=== PATIENT | female | born 2000 | race Caucasian/White ===

== ENCOUNTER 2025-01-01 08:45 | Outpatient (REF) | payer OTHER, SELFPAY ==
[2025-01-01 11:31] LABS: MANUAL DIFF FLAG NO
[2025-01-01 11:40] LABS: Hematocrit 40.5 % (37.0-47.0); Hemoglobin 13.4 g/dl (12.0-16.0); Imm Gran Abs Auto 0.01 X10*3/uL (0.00-0.03); Imm Gran Pct Auto 0.1 % (0.0-0.4); Lymphocytes Absolute Auto 1.7 X10*3/uL (1.2-4.9); Mean Corpuscular HGB Conc 33.1 g/dl (31.0-35.0); Mean Corpuscular Hemoglobin 28.8 pg (27.0-33.0); Mean Corpuscular Volume 86.9 fL (80.0-98.0); NRBC Abs Auto 0.000 X10*3/uL (0.0-0.012); NRBC Pct Auto 0.0 /100WBC (0.0-0.2); Platelet Count 216 X10*3/uL (160-400); Red Blood Count 4.66 X10*6/uL (4.20-5.50); White Blood Count 7.1 X10*3/uL (4.8-10.8)
[2025-01-01 11:44] LABS: Appearance Urine Clear; Glucose Urine UA Negative (Negative); PH 7.0 (5.0-9.0); Specific Gravity - Urine 1.010 (1.005-1.025); UMIC TRIGGER UACC YES
[2025-01-01 11:59] LABS: UACC Culture Trigger YES
[2025-01-01 12:07] LABS: Hemoglobin A1C 114.6135 umol/L; Total Hemoglobin (HGBA1C) 3546.4933 umol/L
[2025-01-01 12:11] LABS: Alanine Aminotransferase 19 U/L (0-31); Albumin Level 4.7 g/dL (3.5-5.0); Alkaline Phosphatase 58 U/L (39-117); Anion Gap 11 (12-20); Aspartate Amino Transferase 39 U/L (5-31); Blood Urea Nitrogen 18 mg/dL (9-16); Calcium 9.0 mg/dL (8.4-10.2); Carbon Dioxide 25 mmol/L (22-29); Chloride 106 mmol/L (96-108); Cholesterol 109 mg/dL (<200); Estimated Glomerular Filt Rate > 60; Ferritin 50 ng/mL (10-122); HDL Cholesterol 57 mg/dL (>40); Iron 234 mcg/dL (30-160); Magnesium 2.0 mg/dL (1.6-2.6); Percent Iron Saturation 88 % (15-50); Potassium 4.3 mmol/L (3.3-5.1); Sodium 138 mmol/L (135-145); Total Iron Binding Capacity 266 mcg/dL (228-428); Total Protein 7.2 g/dL (6.5-8.0); Triglycerides 58 mg/dL (<150); Unsaturated Iron Binding 32 ug/dL
[2025-01-01 12:26] LABS: Folate 13.8 ng/mL (> or = 4.0); Vitamin B12 782 pg/mL (200-900)
[2025-01-02 09:44] LABS: Immunoglobulin A 136 mg/dL (47-310)
[2025-01-02 11:59] LABS: Lyme Abs Screen <0.90 index
[2025-01-02 22:53] LABS: Transglutaminase Ab IgG <1.0 U/mL
[2025-01-03 13:59] LABS: Anti Nuclear Antibody Screen NEGATIVE (NEGATIVE)
== END 2025-01-01 08:46 | disposition home or self-care (01) ==
LOC: HO.WFDLDS 08:45
PROVIDERS: PCP Physician Assistant; Visit Provider Physician Assistant
DX: Z00.00 Encounter for general adult medical examination without abnormal findings (principal); Z13.6 Encounter for screening for cardiovascular disorders; M25.50 Pain in unspecified joint; M79.641 Pain in right hand; M79.642 Pain in left hand; R53.83 Other fatigue; R59.0 Localized enlarged lymph nodes; R14.0 Abdominal distension (gaseous); N92.6 Irregular menstruation, unspecified; N89.8 Other specified noninflammatory disorders of vagina; R73.01 Impaired fasting glucose
CPT/HCPCS: 36415; 80053; 80061; 81001; 82533; 82607; 82728; 82746; 82784; 83036; 83540; 83735; 84443; 85025; 85652; 86038; 86231; 86364; 86431; 86617; 86618; 87086; 96127

== ENCOUNTER 2025-01-01 08:45 | Outpatient (AMB) | payer OTHER, SELFPAY ==
--- NOTE | 2025-01-01 09:03 | MHC.PC.OV ---
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 Required: No Is last menstrual period known: Yes Last menstrual period: 12/06/24 Post menopausal: No Patient : No Allergies No Known Allergies Allergy (Verified 01/01/25 09:11) Medication List - Last Reconciled 01/01/25 by Nancy Osborn PA-C albuterol sulfate 90 mcg/actuation 2 puffs inhalation Q4H PRN azelastine 2 sprays intranasal BID fluticasone propionate 50 mcg/actuation 1 spray intranasal DAILY montelukast 10 mg PO DAILY Tobacco use date assessed: 01/01/25 Dental Screening Dental Screen Date: 01/01/25 Did you have a dental visit in the last 12 months?: Yes Did you have a dental problem in the last 6 months where you did not have access to dental care?: No Was dental information given to patient?: Patient has dentist 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 She is transferring from [facility]. She does have a list of concerns today. States that her only significant past medical history has been environmental allergies, chronic sinusitis and nasal polyps. -she did bring in a typed list today and some specific labs that she wanted ordered HEENT: She has a history of chronic sinusitis and nasal polyps. Currently following with ENT and they want to start her on allergy shots. She says that she has to call to schedule this. She states in the past she has had allergy testing and was allergic to ?everything ?. She is currently on azelastine, Flonase, Singulair. States that this is somewhat helped with the congestion but she does have chronic postnasal drip and some lymphadenopathy mostly on the left side. She states that she is concerned because she has had 2 areas where she has noticed her lymph node enlargement in her father has a history of lymphoma and from this in 2020. Of note she is also following with Ophthalmology as she has had a couple episodes of eye ulcers. She does wear contacts. 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 She states that she never had pain with ovulation until April 2024. She states that she gets pain with ovulation and then also has intense pain with her periods. She states that she gets a lot of cramping, bloating and swelling. She says it feels like her ovaries at times want to ?explode?. She states sometimes with sex she notices pain and states it feels like it is related to her ovary. This has never happened to her before but this has been worsening since May. She states her period also is becoming a little bit irregular. In June she missed her menses. She denies any abnormal vaginal discharge, fevers or chills. She does notice that internally she has a lump in her vagina and it is uncomfortable and she has to sometimes push it out of the way. She says that that is why she has a plate maker zinc exam on the . The lump has been there also since May. It has been unchanged in size. Msk: bilateral wrist pain, elbow pain, and hand pain. Her fingers are also sore and achy. She states the joints feel achy. Her sx started in May. No erythema. No sick sx when it started. 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 Her biggest concern is the hand/fingers. General: She does feel tired a lot and wonders if she has sleep apnea. She states her boyfriend tells her he has witnessed her stopped breathing a couple times in gas for air. She also mouth breathes (per bf) and is very tired during the day. Denies fever, chills, weight loss, night sweats, nausea, vomiting or diarrhea. She also requires a full physical today for work. 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 1. Little interest or pleasure in doing things: not at all 2. Feeling down, depressed, or hopeless: several days 3. Trouble falling or staying asleep, or sleeping too much: not at all 4. Feeling tired or having little energy: several days 5. Poor appetite or overeating: not at all 6. Feeling bad about yourself - or that you are a failure or have let yourself or your family down: not at all 7. Trouble concentrating on things, such as reading the newspaper or watching television: not at all 8. Moving or speaking so slowly that other people could have noticed. Or the opposite - being so fidgety or restless that you have been moving around a lot more than usual: not at all 9. Thoughts that you would be better off or of hurting yourself in some way: not at all Total score: 2 Depression Screening Interpretation: Negative Depression Screening Done: Yes 52341 - PHQ-9 Billing: Yes Source: Developed by Drs. Heber Hansen, Idania Hoffmann, Car Valdes and colleagues, with an educational jefferson from [employer]. Thrive Questionnaire Date Thrive assessed: 01/01/25 I am a: Patient What is your living situation today?: I have a steady place to live Within the past 12 months, did the food you bought not last and you didn't have the money to get more?: Never true Within the past 12 months, did you worry whether your food would run out before you got money to buy more?: Never true Do you have trouble paying for medicines?: No Do you have trouble getting transportation to medical appointments?: No Do you have trouble paying your heating and electricity bill?: No Do you have trouble taking care of your child, family member or friend?: No Do you have trouble with day-to-day activities such as bathing, preparing meals, shopping, managing finances, etc.?: No Are you currently unemployed and looking for a job?: No Are you interested in more education?: No Please select the resources that you would like help with: None Currently or been in a relationship where the following occur: No concerns reported THRIVE Score: 0 AUDIT C Alcohol Use Questionnaire (AUDIT-C) 1. How often do you have a drink containing alcohol?: Never 3. How often do you have six or more drinks on one occasion?: Never Total Score: 0 Score Reviewed/Action Taken: Yes ISAK-7 AMB Questionnaire ISAK-7 Date ISAK - 7 assessed: 01/01/25 Feeling nervous, anxious, or on edge: 1 = Several days Not being able to stop or control worryin = Several days Worrying too much about different things: 1 = Several days Trouble relaxin = Several days Being so restless that it is hard to sit still: 0 = Not at all Becoming easily annoyed or irritable: 1 = Several days Feeling afraid as if something awful might happen: 0 = Not at all Total ISAK-7 score (0-4 normal; 5-9 mild; 10-14 moderate; 15-21 severe): 5 Source: Developed by Drs. Heber Hansen, Idania Hoffmann, Car Valdes and colleagues, with an educational jefferson from [employer]. ISAK-7 Assessment Billing ISAK-7 Assessment Tool: ISAK-7 Assessment 69427 ACT Questionnaire In the past 4 weeks, how much of the time did your asthma keep you from getting as much done at work, school or at home?: None of the time During the past 4 weeks, how often have you had shortness of breath?: Not at all During the past 4 weeks, how often did your asthma symptoms wake you up at night or earlier than usual in the morning?: Not at all During the past 4 weeks, how often have you had to use your rescue inhaler or nebulizer medication?: Not at all How would you rate your asthma control during the past 4 weeks?: Completely controlled Score: 25 Physical exam (Primary Care) Vital Signs: Last Vital Signs Temp 97.5 F 01/01/25 09:14 Pulse 76 01/01/25 09:14 Resp 16 01/01/25 09:14 BP 125/63 01/01/25 09:14 Pulse Ox 100 01/01/25 09:14 Oxygen Delivery Method Room Air 01/01/25 09:14 BMI result Body Mass Index 36.2 Tobacco/Smoking Status: Tobacco use Status Tobacco use date assessed 01/01/25 01/01/25 09:18 Patient Tobacco Use Status Never used Tobacco 01/01/25 09:18 e-Cigarette/Vaping Use Never Used 01/01/25 09:18 PHQ-9: PHQ-9 Score PHQ-9: Total score 2 01/01/25 09:56 Depression Screening Interpretation: Negative Thrive Assessment: Date of Thrive Assessment Date Thrive assessed 01/01/25 01/01/25 09:05 Currently or been in a relationship where the following occur: No concerns reported Const Orientation/consciousness: patient oriented x3 HENMT Ears: hearing grossly normal bilaterally and TM's normal bilaterally General nose exam: No nasal polyps present Face and sinus: Yes sinuses nontender Mouth: Normal oral and palatal mucosa present Eyes Pupils: Equal, round and reactive pupils present EOM: EOMs intact bilaterally Neck Neck: Yes full ROM and Yes no lymphadenopathy Thyroid: Thyroid normal Chest Chest palpation & inspection: normal inspection of the chest Resp Auscultation: clear to auscultation bilaterally Cardio Rate: regular rate Rhythm: regular rhythm Heart sounds: S1 normal heart sound present and S2 normal heart sound present Peripheral pulses: Peripheral pulses 2+ throughout GI Other: Soft, nontender Auscultation: normal bowel sounds Rectal Exam - Female: deferred General: Yes no CVA tenderness Back/Spine/Pelvis Other: Nontender Back: no CVA tenderness Skin General skin exam: no rashes or lesions noted Neuro General: patient oriented x3, gait normal, CN's II-XI intact bilaterally and deep tendon reflexes 2+ bilaterally Cranial nerves: Yes Equal, round and reactive pupils present Motor exam (neuro): 5/5 motor strength present throughout Sensory Exam: double simultaneous stimulation for sensation normal Coordination: [id number] test normal and Romberg test negative Extrem General: Yes normal to inspection and Yes full ROM Psych Affect: normal affect Attitude: cooperative Thought process: Normal thought process present Thought content: Normal thought content present Insight: Good insight present (Psych) Judgement: Good judgement present (Psych) Coding Level of Care Code New Pt Level 4 (50687) New Pt Prev Care 18-39yr(57529 Diagnoses Routine general medical examination at a health care facility Z00.00 Polyarthralgia M25.50 Bilateral hand pain M79.641; M79.642 Fatigue R53.83 Left cervical lymphadenopathy R59.0 Abdominal bloating R14.0 Abnormal menses N92.6 Vaginal lesion N89.8 Additional Codes ISAK-7 Assessment Billing - ISAK-7 Assessment Tool: ISAK-7 Assessment 59218 ([id number]) PHQ-9 - 55999 - PHQ-9 Billing: Yes ([id number]) Assessment & Plan Assessment & Plan (1) Routine general medical examination at a health care facility: Code(s): Z00.00 - Encounter for general adult medical examination without abnormal findings Plan: Health maintenance reviewed. Labs ordered today. Short term follow up to review testing. (2) Polyarthralgia: Code(s): M25.50 - Pain in unspecified joint Category: Medical Plan: Labs ordered today (3) Bilateral hand pain: Code(s): M79.641 - Pain in right hand; M79.642 - Pain in left hand Category: Medical Plan: Imaging and labs ordered (4) Fatigue: Code(s): R53.83 - Other fatigue Category: Medical Plan: As above Sleep study ordered (5) Left cervical lymphadenopathy: Code(s): R59.0 - Localized enlarged lymph nodes Category: Medical Plan: I am unable to appreciate significant lymphadenopathy. Ultrasound ordered. (6) Abdominal bloating: Code(s): R14.0 - Abdominal distension (gaseous) Category: Medical Plan: Abdominal and pelvic ultrasound ordered (7) Abnormal menses: Code(s): N92.6 - Irregular menstruation, unspecified Category: Medical Plan: As above. Has follow up with OBGYN in a couple weeks. She will let me know if anything worsens or changes (8) Vaginal lesion: Code(s): N89.8 - Other specified noninflammatory disorders of vagina Category: Medical Plan: As above Orders: Orders Erythrocyte Sedimentation Rate Today M25.50 - Pain in unspecified joint, M79.641 - Pain in right hand, M79.642 - Pain in left hand, N89.8 - Other specified noninflammatory disorders of vagina, N92.6 - Irregular menstruation, unspecified, R14.0 - Abdominal distension (gaseous), R53.83 - Other fatigue, R59.0 - Localized enlarged lymph nodes Lyme IgG/IgM w/reflex to WB Today M25.50 - Pain in unspecified joint, M79.641 - Pain in right hand, M79.642 - Pain in left hand, N89.8 - Other specified noninflammatory disorders of vagina, N92.6 - Irregular menstruation, unspecified, R14.0 - Abdominal distension (gaseous), R53.83 - Other fatigue, R59.0 - Localized enlarged lymph nodes Complete Blood Count Auto Diff Today M25.50 - Pain in unspecified joint, M79.641 - Pain in right hand, M79.642 - Pain in left hand, N89.8 - Other specified noninflammatory disorders of vagina, N92.6 - Irregular menstruation, unspecified, R14.0 - Abdominal distension (gaseous), R53.83 - Other fatigue, R59.0 - Localized enlarged lymph nodes Ferritin Today M25.50 - Pain in unspecified joint, M79.641 - Pain in right hand, M79.642 - Pain in left hand, N89.8 - Other specified noninflammatory disorders of vagina, N92.6 - Irregular menstruation, unspecified, R14.0 - Abdominal distension (gaseous), R53.83 - Other fatigue, R59.0 - Localized enlarged lymph nodes IRON PROFILE Today M25.50 - Pain in unspecified joint, M79.641 - Pain in right hand, M79.642 - Pain in left hand, N89.8 - Other specified noninflammatory disorders of vagina, N92.6 - Irregular menstruation, unspecified, R14.0 - Abdominal distension (gaseous), R53.83 - Other fatigue, R59.0 - Localized enlarged lymph nodes UA CC w/rflx Micro + Cult Today M25.50 - Pain in unspecified joint, M79.641 - Pain in right hand, M79.642 - Pain in left hand, N89.8 - Other specified noninflammatory disorders of vagina, N92.6 - Irregular menstruation, unspecified, R14.0 - Abdominal distension (gaseous), R53.83 - Other fatigue, R59.0 - Localized enlarged lymph nodes, Z13.220 - Encounter for screening for lipoid disorders Hemoglobin A1c Today M25.50 - Pain in unspecified joint, M79.641 - Pain in right hand, M79.642 - Pain in left hand, N89.8 - Other specified noninflammatory disorders of vagina, N92.6 - Irregular menstruation, unspecified, R14.0 - Abdominal distension (gaseous), R53.83 - Other fatigue, R59.0 - Localized enlarged lymph nodes, R73.01 - Impaired fasting glucose Lipid Panel Today M25.50 - Pain in unspecified joint, M79.641 - Pain in right hand, M79.642 - Pain in left hand, N89.8 - Other specified noninflammatory disorders of vagina, N92.6 - Irregular menstruation, unspecified, R14.0 - Abdominal distension (gaseous), R53.83 - Other fatigue, R59.0 - Localized enlarged lymph nodes RT home sleep study Today R06.81 - Apnea, not elsewhere classified US soft tiss head and/or neck Today R53.83 - Other fatigue, R59.0 - Localized enlarged lymph nodes Immunoglobulin A Today R14.0 - Abdominal distension (gaseous), R59.0 - Localized enlarged lymph nodes FERMIN Reflex Titer and Pattern Today M25.50 - Pain in unspecified joint, M79.641 - Pain in right hand, M79.642 - Pain in left hand, N89.8 - Other specified noninflammatory disorders of vagina, N92.6 - Irregular menstruation, unspecified, R14.0 - Abdominal distension (gaseous), R53.83 - Other fatigue, R59.0 - Localized enlarged lymph nodes Rheumatoid Factor Today M25.50 - Pain in unspecified joint, M79.641 - Pain in right hand, M79.642 - Pain in left hand, N89.8 - Other specified noninflammatory disorders of vagina, N92.6 - Irregular menstruation, unspecified, R14.0 - Abdominal distension (gaseous), R53.83 - Other fatigue, R59.0 - Localized enlarged lymph nodes Vitamin B12 and Folate Today M25.50 - Pain in unspecified joint, M79.641 - Pain in right hand, M79.642 - Pain in left hand, N89.8 - Other specified noninflammatory disorders of vagina, N92.6 - Irregular menstruation, unspecified, R14.0 - Abdominal distension (gaseous), R53.83 - Other fatigue, R59.0 - Localized enlarged lymph nodes TSH reflex Free T4 Today M25.50 - Pain in unspecified joint, M79.641 - Pain in right hand, M79.642 - Pain in left hand, N89.8 - Other specified noninflammatory disorders of vagina, N92.6 - Irregular menstruation, unspecified, R14.0 - Abdominal distension (gaseous), R53.83 - Other fatigue, R59.0 - Localized enlarged lymph nodes Comprehensive [place]. Panel Fast Today M25.50 - Pain in unspecified joint, M79.641 - Pain in right hand, M79.642 - Pain in left hand, N89.8 - Other specified noninflammatory disorders of vagina, N92.6 - Irregular menstruation, unspecified, R14.0 - Abdominal distension (gaseous), R53.83 - Other fatigue, R59.0 - Localized enlarged lymph nodes Magnesium Today M25.50 - Pain in unspecified joint, M79.641 - Pain in right hand, M79.642 - Pain in left hand, N89.8 - Other specified noninflammatory disorders of vagina, N92.6 - Irregular menstruation, unspecified, R14.0 - Abdominal distension (gaseous), R53.83 - Other fatigue, R59.0 - Localized enlarged lymph nodes Cortisol Random Today M25.50 - Pain in unspecified joint, M79.641 - Pain in right hand, M79.642 - Pain in left hand, N89.8 - Other specified noninflammatory disorders of vagina, N92.6 - Irregular menstruation, unspecified, R14.0 - Abdominal distension (gaseous), R53.83 - Other fatigue, R59.0 - Localized enlarged lymph nodes US pelvic and transvaginal Today M25.50 - Pain in unspecified joint, M79.641 - Pain in right hand, M79.642 - Pain in left hand, N89.8 - Other specified noninflammatory disorders of vagina, N92.6 - Irregular menstruation, unspecified, R14.0 - Abdominal distension (gaseous), R53.83 - Other fatigue, R59.0 - Localized enlarged lymph nodes US abdomen complete Today N89.8 - Other specified noninflammatory disorders of vagina, N92.6 - Irregular menstruation, unspecified, R14.0 - Abdominal distension (gaseous), R59.0 - Localized enlarged lymph nodes XR Hand Bilat min 3v Today M79.641 - Pain in right hand, M79.642 - Pain in left hand Endomysial IgA rflx Titer Today R14.0 - Abdominal distension (gaseous), R59.0 - Localized enlarged lymph nodes Transglutaminase Ab IgG Today R14.0 - Abdominal distension (gaseous), R59.0 - Localized enlarged lymph nodes
--- OUTSIDE RECORDS SUMMARY | 2025-01-01 09:09 | XMS_ITS | Encounter Summary ---
Author Organization [facility] Address [address] [place] [id number] Phone Care Team Providers Care Fender Finisher Name Role Phone Nadia Rutherford MD Primary Care Provider Malorie Crowley MD Primary Care Provider Morenita Snider Primary Care Provider Pcp, Unknown Primary Care Provider Unavailabl e Malorie Crowley MD Unavailable [phone] Pcp, Unknown Unavailable Unavailable Encounter Details Date Type Department Care Team (Latest Contact Info) Description 12/11/2019 Transcribe Orders [facility] Specimen Processing [address] [place] [address] Nadia Rutherford MD [address] [place] [address] OCP (oral contraceptive pills) initiation (Primary Dx) Social History Tobacco Use Types Packs/Day Years Used Date Smoking Tobacco: Never Assessed Comments Unknown Sex and Gender Information Value Date Recorded Sex Assigned at Not on file Legal Sex Female 8:45 PM EDT Gender Identity Not on file Sexual Orientation Not on file documented as of this encounter Plan of Treatment Not on file documented as of this encounter Results * Chlamydia Trachomatis and Neisseria Gonorrhoeae Nucleic Acid Detection (12/11/2019 11:46 AM EDT) CHLAMYDIA TRACHOMATIS Not Detected Not Detected [facility] NEISERIA GONORRHOEAE Not Detected Not Detected [facility] SPECIMEN TYPE URINE [facility] Urine (Urine) 12/11/2019 11: 46 AM EDT 12/11/2019 11:47 AM EDT Nadia Rutherford MD NON CULTURE MICROBIOLOG Y Final Result [facility] [address] [place] [address] documented in this encounter Visit Diagnoses Diagnosis OCP (oral contraceptive pills) initiation- Primary General counseling for prescription of oral contraceptives documented in this encounter Care Teams Fender Finisher Relationship Specialty Start Date End Date Nadia Rutherford MD PCP - General Pediatrics 06/05/17 09/07/20 Malorie Crowley MD [address] [place] [id number] PCP - General Pediatrics 01/07/21 10/04/22 Morenita Snider PA [address] [place] [id number] PCP - General Physician Corporate Representative 10/05/22 10/05/22 Pcp, Unknown PCP - General 10/06/22 Pcp, Unknown PCP - Pediatrics 09/07/20 Malorie Crowley MD [address] [place] [id number] Pediatrics 10/05/22 documented as of this encounter Additional Source Comments The information contained in this document represents components of the legal health record. It is not the complete legal health record.[facility]
--- OUTSIDE RECORDS SUMMARY | 2025-01-01 09:09 | XMS_ITS | Clinical Summary ---
Author Organization [employer] Address [address] [place] [address] 7 [place] [address] Care Team Providers Care Dope Firer Name Role Phone Unavailable Primary Care Provider Unavailabl e Allergies No known active allergies Medications No known medications Social History Tobacco Use Types Packs/Day Years Used Date Smoking Tobacco: Never Passive Smoke Exposure: Never Smokeless Tobacco: Never Tobacco Cessation:Counseling Given: No Comments Unknown Sex and Gender Information Value Date Recorded Sex Assigned at Female 07/20/2022 10:17 AM EST Legal Sex Female 5:37 PM EDT Gender Identity Female 07/20/2022 10:17 AM EST Sexual Orientation Choose not to disclose 2022 10:17 AM EST Plan of Treatment Health Maintenance Due Date Last Done Comments Chlamydia and Gonorrhea Screening 2001 Dental X-Ray: Full Mouth 2001 Depression Screening 2001 HIV Screening 2001 SDOH Screening 2001 Disability Screening 2001 Pneumococcal Vaccine: Pediatrics (0 to 5 Years) and At-Risk Patients (6 to 49) Years (1 of 1 - PPSV23) 08/10/2007 11/04/2002, 02/11/2002, 2001, Additional history exists Alcohol/Substance Use Screening 2013 Family Planning (PISQ) 2016 Meningococcal B Vaccine (1 of 2 - Standard) 2017 Hepatitis C Screening 08/10/2019 Pap Smear 2022 DTaP/Tdap/Td Vaccines (6 - Td or Tdap) 09/25/2022 09/25/2012, 07/25/2005, 02/20/2003, Additional history exists Tobacco Screening 07/28/2023 07/27/2022 Dental Oral Exam 08/03/2023 02/01/2023, 01/2023, 01/26/2022, Additional history exists Dental Prophylaxis 08/03/2023 02/01/2023, 0 07/27/2022, 01/26/2022, Additional history exists COVID-19 Vaccine ( - 2023- season) 2024 Dental X-Ray: Bitewings 02/03/2024 02/02/20 23, 01/26/2022, 01/11/2021, Additional history exists Influenza Vaccine (#1) 2025 03/02/2015 Zoster Vaccines (1 of 2) 08/10/2051 RSV Patients and Patients Aged 60 years or older (1 - 1-dose 75+ series) 2076 Hepatitis B Vaccines Completed 05/12/2002, 2001, 2001 HIB Vaccines Completed 11/04/2002, 01/20, 2001, Additional history exists HPV Vaccines Completed 03/02/2015, 10/19, 10/24/2014, Additional history exists IPV Vaccines Completed 07/03/2017, 11/2005, 08/12/2002, Additional history exists Meningococcal Vaccine Completed 05/20/2018, 013 Hepatitis A Vaccines Completed 10/02/2019, 05/20/20 18 RSV under 20 months Aged Out No longe r eligible based on patient's age to complete this topic Rotavirus Vaccines Aged Out No longer eligible based on patient's age to complete this topic Procedures Procedure Name Priority Date/Time Associated Diagnosis Comments Full PROPHYLAXIS - ADULT Routine 023 2:00 PM EDT BITEWINGS - 4 RADIOGRAPHIC IMAGES Routine 02/01/2023 2:00 PM EDT PERIODIC ORAL EVALUATION - ESTABLISHED PATIENT Routine 02/01/2023 2:00 PM EDT from Last 3 Months or Most Recently Relevant to Health Maintenance Insurance [facility] MEDICAID STAND [facility]
[2025-01-01 09:14] VITALS: BP 125/63; PULSE 76; RESP 16; TEMP 36.4; O2SAT 100; BMI 36.2
== END 2025-01-01 09:51 | disposition home or self-care (01) ==
LOC: HO.HMCFM 08:49
PROVIDERS: PCP Physician Assistant; Visit Provider Physician Assistant
DX: Z00.00 Encounter for general adult medical examination without abnormal findings (principal); M79.641 Pain in right hand; M79.642 Pain in left hand; M25.50 Pain in unspecified joint; R53.83 Other fatigue; R59.0 Localized enlarged lymph nodes; R14.0 Abdominal distension (gaseous); N92.6 Irregular menstruation, unspecified; N89.8 Other specified noninflammatory disorders of vagina

== ENCOUNTER 2025-01-29 07:40 | Outpatient (REF) | payer OTHER, SELFPAY ==
--- OUTSIDE RECORDS SUMMARY | 2025-01-29 07:45 | XMS_ITS | Encounter Summary ---
Author Organization [facility] Address [address] [facility] [address] [place] [address] Phone Care Team Providers Care Tool Designer Apprentice Name Role Phone Nadia Rutherford MD Primary Care Provider Malorie Crowley MD Primary Care Provider [phone] Morenita Snider Primary Care Provider Pcp, Unknown Primary Care Provider Unavailabl e Malorie Crowley MD Unavailable [phone] Pcp, Unknown Unavailable Unavailable Encounter Details Date Type Department Care Team (Late st Contact Info) Description 06/05/2017 Transcribe Orders [facility] Specimen Processing [address] [place] [address] Nadia Rutherford MD [address] [place] [address] Cough (Primary Dx) Social History Tobacco Use Types [...] documented as of this encounter Results * (ABNORMAL) Rapid influenza A and B (06/05/2017 5:40 PM EST) Influenza A Ag Negative Negative [facility] Influenza B Ag Positive(A) Negative [facility] Other (Nasal) 06/05/2017 5:4 0 PM EST 06/05/2017 5:46 PM EST Nadia Rutherford MD MICROBIOLOGY - GENERAL ORDERABLES Final Result [facility] [address] [place] [address] documented in this encounter Visit Diagnoses Diagnosis Cough- Primary documented in this encounter Care Teams Tool Designer Apprentice Relationship Specialty Start Date End Date Nadia Rutherford MD PCP - General Pediatrics 06/05/17 09/07/20 Malorie Crowley MD [address] [place] [address] PCP - General Pediatrics 01/07/21 10/04/22 Morenita Snider PA [address] [place] [address] PCP - General Physician Electronics Assembler And Tester 10/05/22 10/05/22 Pcp, Unknown PCP - General 10/06/22 Pcp, Unknown PCP - Pediatrics 09/07/20 Malorie Crowley MD [address] [place] [address] Pediatrics 10/05/22 documented as of this encounter Additional Source Comments The information contained in this document represents components of the legal health record. It is not the complete legal health record.[facility]
--- OUTSIDE RECORDS SUMMARY | 2025-01-29 07:45 | XMS_ITS | Clinical Summary ---
Author Organization [facility] Address [address] [place] [address] Phone Care Team Providers Care Sewing Machine Maintenance Mechanic Name Role Phone Pcp, Unknown Primary Care Provider Malorie Ash MD Unavailable [phone] Pcp, Unknown Unavailable Unavailable Allergies No known active allergies Medications IBUPROFEN ORAL Take by mouth as needed. Active Active Problems No known active problems Family History Medical History Relation Comments Sleep apnea Father Thyroid disease Father Diabetes Maternal Grandfather type 2 Heart attack Maternal Uncle Sleep apnea Mother Thyroid disease Mother Alzheimer's disease Paternal Grandmother Relation Status Comments Father Maternal Grandfather Maternal Uncle Mother Paternal Grandmother Social History Tobacco Use Types Packs/Day Years Used Date Smoking Tobacco: Never Smokeless Tobacco: Never Alcohol Use Standard Drinks/Week Comments Never 0 (1 standard drink = 0.6 oz pur e alcohol) Education Answer Date Recorded Are you interested in more education? Not on amara e 09/15/2022 Are you concerned about learning? Not on file 09/15/2022 No 09/15/2022 No 09/15/2022 Digital Access Answer Date Recorded No 10/12/2022 No 10/12/2022 Reliable internet access at home? Not on file 10/12/2022 Device with a working camera? Not on file Comments No Sex and Gender Information Value Date Recorded Sex Assigned at Not on file Legal Sex Female 8:45 PM EDT Gender Identity Not on file Sexual Orientation Not on file Last Filed Vital Signs Vital Sign Reading Time Taken Comments Blood Pressure 122/78 01/11/2021 9:28 AM EDT Pulse - - Temperature - - Respiratory Rate - - Oxygen Saturation - - Inhaled Oxygen Concentration - - Weight 101.6 kg (224 lb) 01/11/2021 9:28 AM EDT Height 168.9 cm (5' 6.5 ) 01/11/2021 9:28 AM EDT Body Mass Index 35.61 01/11/2021 9:28 AM EDT Plan of Treatment Health Maintenance Due Date Last Done Comments DEPRESSION SCREENING 2013 SMOKING Hx and SMOKELESS TOB ACCO SCREENING 2014 MENINGOCOCCAL VACCINES (B) ( 1 of 2 - Standard) 2017 HEPATITIS C SCREENING 08/10/2019 HIV ONE-TIME SCREENING (18-6 5 YEARS) 08/10/2019 CHLAMYDIA SCREENING 12/10/2020 12/11/2019, 9 Adult Td,Tdap Booster 09/25/2022 09/25/2012 INFLUENZA VACCINE (#1) 2024 03/02/2015 COVID-19 VACCINE (2023-2 5 season) 2025 PAP SMEAR 10/05/2025 10/05/2022 HIB VACCINES Completed 11/04/2002, 01/20, 2001, Additional history exists PNEUMOCOCCAL VACCINES (0-49 years) Completed 11/04/2002, 02/11/2002, 2001, Additional history exists HPV VACCINES Completed 03/02/2015, 10/19, 10/24/2014, Additional history exists MENINGOCOCCAL VACCINES (ACWY) Completed 05/20/2018, 09/25/2012 HEPATITIS A VACCINES Completed 10/02/2019, 05/20/20 18 Medical Devices Not on file Procedures Procedure Name Priority Date/Time Associated Diagnosis Comments PAP TEST Routine 10/05/2022 12:00 AM EDT CHLAMYDIA TRACHOMATIS AND NEISSERIA GONORRHOEAE NUCLEIC ACID DETECTION Routine 12/11/2019 11:46 AM EDT OCP (oral contraceptive pills) initiation from Last 3 Months or Most Recently Relevant to Health Maintenance Results * Pap Test (10/05/2022 12:00 AM EDT) 10/05/2022 10/09/2022 10: 06 AM EDT Narrative SEE NARRATIVE - 10/11/2022 11:43 AM EDT [address] [address] Face Burler: Ebony Parrish MD EXTRUSION UTILITY WORKER Cytology Report FINAL DIAGNOSIS A. PAP SMEAR (SUREPATH) CE: SPECIMEN ADEQUACY: Satisfactory for evaluation; transformation zone absent/insufficient. INTERPRETATION: NEGATIVE FOR INTRAEPITHELIAL LESION OR MALIGNANCY. Fungal organisms morphologically consistent with Noelle species. Electronically Signed Out By: Rah Naranjo MD By his/her signature above, the pathologist listed as making the Final Diagnosis certifies that he/she has personally reviewed this case and confirmed or corrected the diagnosis. The Pap test is a screening test primarily for squamous cancers and precursors and has associated false-negative and false-positive results. New technologies such as liquid-based preparations may decrease but will not eliminate all false-negative results. Regular sampling and follow-up of unexplained clinical signs and symptoms are recommended to minimize false negative results. CLINICAL HISTORY Date of Last Menstrual Period: 09-23-2022 Other Clinical Conditions: Screening Pap SPECIMEN SOURCE A: PAP SMEAR (SUREPATH) CE Patient Name: DION MORGAN : 2000 (Age: 22) Sex: F Institution: [facility] Location: [facility] Date of Collection: 10/05/2022 Date of Reported: 10/11/2022 11:43 Results to: JEANNE Albarran us Unknown Unknown CYTOLOGY ORDERABLES Final Res ult SEE NARRATIVE * Chlamydia Trachomatis and Neisseria Gonorrhoeae Nucleic Acid Detection (12/11/2019 11:46 AM EDT) CHLAMYDIA TRACHOMATIS Not Detected Not Detected [facility] NEISERIA GONORRHOEAE Not Detected Not Detected [facility] SPECIMEN TYPE URINE [facility] Urine (Urine) 12/11/2019 11: 46 AM EDT 12/11/2019 11:47 AM EDT us Nadia Rutherford MD NON CULTURE MICROBIOLOG Y Final Result [address] [address] from Last 3 Months or Most Recently Relevant to Health Maintenance Insurance [facility] Member Subscriber Plan / Payer (Ef fective 2022-Present) Name:Dion Morgan Relation to Subscriber:Self Name:Dion Morgan Payer ID:[id number] (NAIC) Group ID:Not on file Type:Medicaid Address: [place] [place] [address] JAON CARO MD [facility] Member Subscriber Plan / Payer (Ef fective 2022-Present) Name:Dion Morgan Relation to Subscriber:Self Name:Dion Morgan Payer ID:[id number] (NAIC) Group ID:Not on file Type:Medicaid Address: [place] [place] [address] JOAN CARO MD [facility] Member Subscriber Plan / Payer (Ef fective 2022-Present) Name:Dion Morgan Relation to Subscriber:Self Name:Dion Morgan Payer ID:[id number] (NAIC) Group ID:Not on file Type:Medicaid Address: [place] [address] JOAN CARO MD [facility] Member Subscriber Plan / Payer (Ef fective 2022-Present) Name:Dion Morgan Relation to Subscriber:Self Name:Dion Morgan Payer ID:[id number] (NAIC) Group ID:Not on file Type:Medicaid Address: [place] [place] [address] JOAN CARO MD Care Teams Sewing Machine Maintenance Mechanic Relationship Specialty Start Date End Date Pcp, Unknown PCP - General 10/06/22 Pcp, Unknown PCP - Pediatrics 09/07/20 Malorie Crowley MD [address] [place] [address] Pediatrics 10/05/22 Additional Source Comments The information contained in this document represents components of the legal health record. It is not the complete legal health record.[facility]
--- OUTSIDE RECORDS SUMMARY | 2025-01-29 07:45 | XMS_ITS | Encounter Summary ---
Author Organization [employer] Address [address] 7 [place] [address] Care Team Providers Care Sheetmetal Worker Name Role Phone Unavailable Primary Care Provider Unavailabl e Encounter Details Date Type Department Care Team (Latest Contact Info) Description 02/19/2019 Abstract [facility] Dental, Provider, DDS Social History Tobacco Use Types Packs/Day Years Used Date Smoking Tobacco: Never Assessed Comments Unknown Sex and Gender Information Value Date Recorded Sex Assigned at Female 07/20/2022 10:17 AM EST Legal Sex Female 5:37 PM EDT Gender Identity Female 07/20/2022 10:17 AM EST Sexual Orientation Choose not to disclose 2022 10:17 AM EST documented as of this encounter Plan of Treatment Not on file documented as of this encounter Visit Diagnoses Not on filedocumented in this encounter
--- OUTSIDE RECORDS SUMMARY | 2025-01-29 07:45 | XMS_ITS | Encounter Summary ---
Author Organization [employer] Address [address] [facility] 7 [place] [address] Care Team Providers Care Hypo Splasher Name Role Phone Unavailable Primary Care Provider Unavailabl e Encounter Details Date Type Department Care Team (Latest Contact Info) Description 07/20/2021 Abstract [facility] Dental, Provider, DDS Social [...]
--- OUTSIDE RECORDS SUMMARY | 2025-01-29 07:45 | XMS_ITS | Encounter Summary ---
Author Organization [employer] Address [address] [facility] 7 [place] [address] Care Team Providers Care Cosmetic Sales Assistant Name Role Phone Unavailable Primary Care Provider Unavailabl e Encounter Details Date Type Department Care Team (Latest Contact Info) Description 01/11/2021 Abstract [facility] Dental, Provider, DDS Social [...]
--- OUTSIDE RECORDS SUMMARY | 2025-01-29 07:45 | XMS_ITS | Encounter Summary ---
Author Organization [facility] Address [address] [place] [address] Phone Care Team Providers Care Internal Review And Audit Compliance Name Role Phone Nadia Rutherford MD Primary Care Provider Malorie Crowley MD Primary Care Provider Morenita Snider Primary Care Provider Pcp, Unknown Primary Care Provider Unavailabl e Malorie Crowley MD Unavailable [phone] Pcp, Unknown Unavailable Unavailable Encounter Details Date Type Department Care Team (Latest Contact Info) Description 05/15/2018 Transcribe Orders [facility] [address] [place] [address] Nadia Rutherford MD [address] [place] [phone] Nonspecific abnormal finding (Primary Dx) Social History Tobacco Use Types [...] documented as of this encounter Results * Free T4 (05/15/2018 9:26 AM EST) FREE T4 1.1 0.9 - 1.7 ng/dL [facility] Blood 05/15/2018 9:26 AM EST 05/15/2018 9:30 AM EST us Nadia Rutherford MD LAB BLOOD ORDERABLES Fi nal Result Performing Organization Address City/[facility]/ZIP Co de Phone Number [address] [address] * TSH (05/15/2018 9:26 AM EST) TSH 2.26 0.27 - 4.20 uIU/mL [facility] Blood 05/15/2018 9:26 AM EST 05/15/2018 9:30 AM EST us Nadia Rutherford MD LAB BLOOD ORDERABLES Fi nal Result Performing Organization Address [facility] Co de Phone Number [address] [address] documented in this encounter Visit Diagnoses Diagnosis Nonspecific abnormal finding- Primary Other nonspecific abnormal finding documented in this encounter Care Teams Internal Review And Audit Compliance Relationship Specialty Start Date End Date Nadia Rutherford MD PCP - General Pediatrics 06/05/17 09/07/20 Malorie Crowley MD [address] [place] [address] PCP - General Pediatrics 01/07/21 10/04/22 Morenita Snider PA [address] [place] [address] PCP - General Physician It Technical Specialist 10/05/22 10/05/22 Pcp, Unknown PCP - General 10/06/22 Pcp, Unknown PCP - Pediatrics 09/07/20 Malorie Crowley MD [address] [place] [address] Pediatrics 10/05/22 documented as of this encounter Additional Source Comments The information contained in this document represents components of the legal health record. It is not the complete legal health record.[facility]
--- OUTSIDE RECORDS SUMMARY | 2025-01-29 07:45 | XMS_ITS | Encounter Summary ---
Author Organization [facility] Address [address] [facility] [address] [place] [address] Phone Care Team Providers Care Manufacturing Quality Inspector Name Role Phone Nadia Rutherford MD Primary Care Provider Malorie Crowley MD Primary Care Provider Morenita Snider Primary Care Provider Pcp, Unknown Primary Care Provider Unavailabl e Malorie Crowley MD Unavailable [phone] Pcp, Unknown Unavailable Unavailable Encounter Details Date Type Department Care Team (Latest Contact Info) Description 05/22/2018 Transcribe Orders [facility] Specimen Processing [address] [place] [address] Nadia Rutherford MD [address] [place] [address] Encounter for routine child health examination without abnormal findings (Primary Dx) Social History Tobacco Use Types [...] Trachomatis and Neisseria Gonorrhoeae Nucleic Acid Detection (05/22/2018 5:18 PM EST) CHLAMYDIA TRACHOMATIS Not Detected Not Detected [facility] NEISERIA GONORRHOEAE Not Detected Not Detected [facility] SPECIMEN TYPE URINE [facility] Urine (Urine) 05/22/2018 5:1 8 PM EST 05/22/2018 5:22 PM EST Nadia Rutherford MD NON CULTURE MICROBIOLOG Y Final Result [facility] [address] [place] [address] documented in this encounter Visit Diagnoses Diagnosis Encounter for routine child health examination without abnormal findings- Primary documented in this encounter Care Teams Manufacturing Quality Inspector Relationship Specialty Start Date End Date Nadia Rutherford MD PCP - General Pediatrics 06/05/17 09/07/20 Malorie Crowley MD [address] [place] [address] PCP - General Pediatrics 01/07/21 10/04/22 Morenita Snider PA [address] [place] [address] PCP - General Physician Channel Business Manager 10/05/22 10/05/22 Pcp, Unknown PCP - General 10/06/22 Pcp, Unknown PCP - Pediatrics 09/07/20 Malorie Crowley MD [address] [place] [address] Pediatrics 10/05/22 documented as of this encounter Additional Source Comments The information contained in this document represents components of the legal health record. It is not the complete legal health record.[facility]
--- OUTSIDE RECORDS SUMMARY | 2025-01-29 07:45 | XMS_ITS | Encounter Summary ---
Author Organization [facility] Address [address] [facility] [address] [place] [address] Phone Care Team Providers Care Network Operations Analyst Name Role Phone Nadia Rutherford MD Primary Care Provider Malorie Crowley MD Primary Care Provider Morenita Snider Primary Care Provider [phone] Pcp, Unknown Primary Care Provider Unavailabl e Malorie Crowley MD Unavailable [phone] Pcp, Unknown Unavailable Unavailable Encounter Details Date Type Department Care Team (Latest Contact Info) Description 12/11/2019 Transcribe Orders [facility] Specimen Processing [address] [place] [address] Nadia Rutherford MD [address] [place] [address] OCP (oral contraceptive pills) initiation [...] EDT) CHLAMYDIA TRACHOMATIS Not Detected Not Detected [facility] NEISERIA GONORRHOEAE Not Detected Not Detected [facility] SPECIMEN TYPE URINE [facility] Urine (Urine) 12/11/2019 11: 46 AM EDT 12/11/2019 11:47 AM EDT Nadia Rutherford MD NON CULTURE MICROBIOLOG Y Final Result [facility] [address] [place] [address] documented in this encounter Visit Diagnoses Diagnosis OCP (oral contraceptive pills) initiation- Primary General counseling for prescription of oral contraceptives documented in this encounter Care Teams Network Operations Analyst Relationship Specialty Start Date End Date Nadia Rutherford MD PCP - General Pediatrics 06/05/17 09/07/20 Malorie Crowley MD [address] [place] [address] PCP - General Pediatrics 01/07/21 10/04/22 Morenita Snider PA [address] [place] [address] PCP - General Physician Inspector Plating 10/05/22 10/05/22 Pcp, Unknown PCP - General 10/06/22 Pcp, Unknown PCP - Pediatrics 09/07/20 Malorie Crowley MD [address] [place] [address] Pediatrics 10/05/22 documented as of this encounter Additional Source Comments The information contained in this document represents components of the legal health record. It is not the complete legal health record.[facility]
--- OUTSIDE RECORDS SUMMARY | 2025-01-29 07:45 | XMS_ITS | Clinical Summary ---
Author Organization [employer] Address [address] [place] [address] 7 [place] [address] Care Team Providers Care Postbed Stitcher Name Role Phone Unavailable Primary Care Provider [...] 02/01/2023, 0 07/27/2022, 01/26/2022, Additional history exists Dental X-Ray: Bitewings 02/03/2024 02/02/20 23, 01/26/2022, 01/11/2021, Additional history exists COVID-19 Vaccine ( - season) 2025 Influenza Vaccine (#1) 2025 03/02/2015 Zoster Vaccines [...] Most Recently Relevant to Health Maintenance Insurance [facility] MEDICAID [facility]
[2025-01-29 11:35] LABS: MANUAL DIFF FLAG NO
[2025-01-29 11:39] LABS: Hematocrit 40.7 % (37.0-47.0); Hemoglobin 13.4 g/dl (12.0-16.0); Imm Gran Abs Auto 0.01 X10*3/uL (0.00-0.03); Imm Gran Pct Auto 0.2 % (0.0-0.4); Lymphocytes Absolute Auto 1.8 X10*3/uL (1.2-4.9); Mean Corpuscular HGB Conc 32.9 g/dl (31.0-35.0); Mean Corpuscular Hemoglobin 28.9 pg (27.0-33.0); Mean Corpuscular Volume 87.7 fL (80.0-98.0); NRBC Abs Auto 0.000 X10*3/uL (0.0-0.012); NRBC Pct Auto 0.0 /100WBC (0.0-0.2); Platelet Count 217 X10*3/uL (160-400); Red Blood Count 4.64 X10*6/uL (4.20-5.50); White Blood Count 6.2 X10*3/uL (4.8-10.8)
[2025-01-29 12:14] LABS: Alanine Aminotransferase 20 U/L (0-31); Albumin Level 4.7 g/dL (3.5-5.0); Alkaline Phosphatase 61 U/L (39-117); Aspartate Amino Transferase 31 U/L (5-31); Iron 143 mcg/dL (30-160); Percent Iron Saturation 56 % (15-50); Total Iron Binding Capacity 256 mcg/dL (228-428); Total Protein 7.2 g/dL (6.5-8.0); Unsaturated Iron Binding 113 ug/dL
[2025-01-29 12:18] LABS: Ferritin 34 ng/mL (10-122)
== END 2025-01-29 07:41 | disposition home or self-care (01) ==
LOC: HO.WFDLDS 07:40
PROVIDERS: Visit Provider Physician Assistant
DX: E83.119 Hemochromatosis, unspecified (principal)
CPT/HCPCS: 36415; 80076; 82728; 83540; 85025

== ENCOUNTER 2025-02-05 10:48 | Outpatient (AMB) | payer OTHER, SELFPAY ==
--- NOTE | 2025-02-05 10:55 | A.OFFPC_ITS ---
Vital Signs 02/05/25 10:57 Height 5 ft 6 in Weight 228 lb 8 oz BMI 36.9 BP 108/72 Blood Pressure Location Lt brachial Position Sitting Respiration 14 Pulse 86 Pulse Source Pulse Oximeter Pulse Oximetry (%) 98 Oxygen Delivery Method Room Air Intake Visit Reasons: ER F/U from [facility] on 01/20 Intake Note: Emergency room follow up Helicopter Crew Chief Required: No Allergies No Known Allergies Allergy (Verified 02/05/25 10:56) Medication List - Last Reconciled 02/05/25 by Nancy Osborn PA-C albuterol sulfate 90 mcg/actuation 2 puffs inhalation Q4H PRN azelastine 2 sprays intranasal BID fluticasone propionate 50 mcg/actuation 1 spray intranasal DAILY montelukast 10 mg PO DAILY Tobacco use date assessed: 02/05/25 Dental Screening Dental Screen Date: 01/01/25 HPI ER F/U from [facility] on 01/20 HPI Details Pt is a 24 y/o female who presents today for a follow up. States that her only significant past medical history has been environmental allergies, chronic sinusitis and nasal polyps. She recently went to the ER with complaints of lower abdominal pain that is worse in the baseline that she has been experiencing. She has been having intermittent abdominal bloating with some pain and cramping but a couple of weeks ago she says that it was severe so she went to the ER. They did do a pelvic ultrasound and transvaginal ultrasound as it felt lower to her and she was worried about it ovarian cyst or something like that. The pelvic ultrasound was normal. She did have reassuring blood work. She is scheduled with chairman & chief executive officer in a couple weeks. She tells me that she is still having this intermittent lower abdominal pain. No nausea, vomiting or diarrhea. No constipation but was noted to have some constipation on imaging. She has been treating that but has not had any issues. 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 Current occupational exposures/hazards: No Cognitive needs: No Hearing needs: No Vision needs: No Questionnaire Thrive Questionnaire Date Thrive assessed: 01/01/25 I am a: Patient What is your living situation today?: I have a steady place to live Within the past 12 months, did the food you bought not last and you didn't have the money to get more?: Never true Within the past 12 months, did you worry whether your food would run out before you got money to buy more?: Never true Do you have trouble paying for medicines?: No Do you have trouble getting transportation to medical appointments?: No Do you have trouble paying your heating and electricity bill?: No Do you have trouble taking care of your child, family member or friend?: No Do you have trouble with day-to-day activities such as bathing, preparing meals, shopping, managing finances, etc.?: No Are you currently unemployed and looking for a job?: No Are you interested in more education?: No Please select the resources that you would like help with: None Currently or been in a relationship where the following occur: No concerns reported THRIVE Score: 0 ISAK-7 AMB Questionnaire ISAK-7 Date ISAK - 7 assessed: 01/01/25 Source: Developed by Drs. Heber Hansen, Idania Hoffmann, Car Valdes and colleagues, with an educational jefferson from [employer]. Physical exam (Primary Care) Vital Signs: Last Vital Signs Pulse 86 02/05/25 10:57 Resp 14 02/05/25 10:57 BP 108/72 02/05/25 10:57 Pulse Ox 98 02/05/25 10:57 Oxygen Delivery Method Room Air 02/05/25 10:57 BMI result Body Mass Index 36.9 Tobacco/Smoking Status: Tobacco use Status Tobacco use date assessed 02/05/25 02/05/25 11:00 Patient Tobacco Use Status Never used Tobacco 02/05/25 11:00 e-Cigarette/Vaping Use Never Used 02/05/25 11:00 Thrive Assessment: Date of Thrive Assessment Date Thrive assessed 01/01/25 02/05/25 11:00 Currently or been in a relationship where the following occur: No concerns reported Const Orientation/consciousness: patient oriented x3 HENMT Ears: hearing grossly normal bilaterally Neck Thyroid: Thyroid normal Lymphatic: no lymphadenopathy noted Resp Auscultation: clear to auscultation bilaterally Cardio Rate: regular rate Rhythm: regular rhythm Heart sounds: S1 normal heart sound present and S2 normal heart sound present GI Other: There is tenderness to palpation in the lower abdomen without rebound or guarding. No CVA tenderness. Inspection: Yes normal to inspection Palpation (GI): Soft to palpation Auscultation: normoactive bowel sounds Skin General skin exam: no rashes or lesions noted Neuro General: patient oriented x3, gait normal and no focal motor deficits Coding Level of Care Code Est Pt Level 4 (02938) Complex EM visit Add On G2211 Diagnoses Lower abdominal pain R10.30 Assessment & Plan Assessment & Plan (1) Lower abdominal pain: Code(s): R10.30 - Lower abdominal pain, unspecified Category: Medical Plan: CT abdomen and pelvis ordered Referral to GI Keep appointment with chairman & chief executive officer Orders: Orders CT abdomen pelvis wo IV con 02/05/25 R10.30 - Lower abdominal pain, unspecified Referrals Gastroenterology Referral R10.30 - Lower abdominal pain, unspecified, R14.0 - Abdominal distension (gaseous) Medications: New cetirizine (Zyrtec) 10 mg PO DAILY 90 tabs 0RF triamcinolone acetonide 0.025% 1 appl topical BID 80 grams 3RF 2 weeks
[2025-02-05 10:57] VITALS: BP 108/72; PULSE 86; RESP 14; O2SAT 98; BMI 36.9
--- OUTSIDE RECORDS SUMMARY | 2025-02-05 12:56 | XMS_ITS | Encounter Summary ---
Author Organization [employer] Address [address] [facility] 7 [place] [address] Care Team Providers Care Um Specialist Name Role Phone Unavailable Primary Care Provider [...]
--- OUTSIDE RECORDS SUMMARY | 2025-02-05 12:56 | XMS_ITS | Encounter Summary ---
Author Organization [facility] Address [address] [place] [address] Phone Care Team Providers Care Print Decorator Name Role Phone Nadia Rutherford MD Primary Care Provider Malorie Crowley MD Primary Care Provider Morenita Snider Primary Care Provider Pcp, Unknown Primary Care Provider Unavailabl e Malorie Crowley MD Unavailable [phone] Pcp, Unknown Unavailable Unavailable Encounter Details Date Type Department Care Team (Latest Contact Info) Description 05/15/2018 Transcribe Orders [facility] [address] [place] [address] Nadia Rutherford MD [address] [place] [phone] Nonspecific abnormal finding (Primary Dx) Social [...] FREE T4 1.1 0.9 - 1.7 ng/dL [facility] Blood 05/15/2018 9:26 AM EST 05/15/2018 9:30 AM EST us Nadia Rutherford MD LAB BLOOD ORDERABLES Fi nal Result Performing Organization Address City/[facility]/ZIP Co de Phone Number [address] [address] * TSH (05/15/2018 9:26 AM EST) TSH 2.26 0.27 - 4.20 uIU/mL [facility] Blood 05/15/2018 9:26 AM EST 05/15/2018 9:30 AM EST us Nadia Rutherford MD LAB BLOOD ORDERABLES Fi nal Result Performing Organization Address [facility] Co de Phone Number [address] [address] documented in this encounter Visit Diagnoses Diagnosis Nonspecific abnormal finding- Primary Other nonspecific abnormal finding documented in this encounter Care Teams Print Decorator Relationship Specialty Start Date End Date Nadia Rutherford MD PCP - General Pediatrics 06/05/17 09/07/20 Malorie Crowley MD [address] [place] [address] PCP - General Pediatrics 01/07/21 10/04/22 Morenita Snider PA [address] [place] [address] PCP - General Physician Business Manager [employer] 10/05/22 10/05/22 Pcp, Unknown PCP - General 10/06/22 Pcp, Unknown PCP - Pediatrics 09/07/20 Malorie Crowley MD [address] [place] [address] Pediatrics 10/05/22 documented as of this encounter Additional Source Comments The information contained in this document represents components of the legal health record. It is not the complete legal health record.[facility]
--- OUTSIDE RECORDS SUMMARY | 2025-02-05 12:56 | XMS_ITS | Encounter Summary ---
Author Organization [employer] Address [address] [facility] 7 [place] [address] Care Team Providers Care Summer School Coordinator Name Role Phone Unavailable Primary Care Provider [...]
--- OUTSIDE RECORDS SUMMARY | 2025-02-05 12:56 | XMS_ITS | Encounter Summary ---
Author Organization [facility] Address [address] [facility] [address] [place] [address] Phone Care Team Providers Care Machine Ii Engraver Name Role Phone Nadia Rutherford MD Primary Care Provider Malorie Crowley MD Primary Care Provider Morenita Snider Primary Care Provider [phone] Pcp, Unknown Primary Care Provider Unavailabl e Malorie Crowley MD Unavailable [phone] Pcp, Unknown Unavailable Unavailable Encounter Details Date Type Department Care Team (Latest Contact Info) Description 05/22/2018 Transcribe Orders [facility] Specimen Processing [address] [place] [address] Nadia Rutherford MD [address] [place] [address] Encounter for routine child health [...] EST) CHLAMYDIA TRACHOMATIS Not Detected Not Detected [facility] NEISERIA GONORRHOEAE Not Detected Not Detected [facility] SPECIMEN TYPE URINE [facility] Urine (Urine) 05/22/2018 5:1 8 PM EST 05/22/2018 5:22 PM EST Nadia Rutherford MD NON CULTURE MICROBIOLOG Y Final Result [facility] [address] [place] [address] documented in this encounter Visit Diagnoses Diagnosis Encounter for routine child health examination without abnormal findings- Primary documented in this encounter Care Teams Machine Ii Engraver Relationship Specialty Start Date End Date Nadia Rutherford MD PCP - General Pediatrics 06/05/17 09/07/20 Malorie Crowley MD [address] [place] [address] PCP - General Pediatrics 01/07/21 10/04/22 Morenita Snider PA [address] [place] [address] PCP - General Physician Principal Cloud Architect 10/05/22 10/05/22 Pcp, Unknown PCP - General 10/06/22 Pcp, Unknown PCP - Pediatrics 09/07/20 Malorie Crowley MD [address] [place] [address] Pediatrics 10/05/22 documented as of this encounter Additional Source Comments The information contained in this document represents components of the legal health record. It is not the complete legal health record.[facility]
--- OUTSIDE RECORDS SUMMARY | 2025-02-05 12:56 | XMS_ITS | Clinical Summary ---
Author Organization [facility] Address [address] [place] [address] Phone Care Team Providers Care Tavern Keeper Name Role Phone Pcp, Unknown Primary Care Provider Malorie Ash MD Unavailable [phone] Pcp, Unknown Unavailable Unavailable Allergies No [...] SEE NARRATIVE - 10/11/2022 11:43 AM EDT [address] [address] Chinese Medicine Practitioner: Ebony Parrish MD COMMITTEE MEMBER Cytology Report FINAL DIAGNOSIS A. PAP SMEAR [...] 2000 (Age: 22) Sex: F Institution: [facility] Location: [facility] Date of Collection: 10/05/2022 Date of Reported: 10/11/2022 11:43 Results to: JEANNE Albarran us Unknown Unknown CYTOLOGY ORDERABLES Final Res ult SEE NARRATIVE * Chlamydia Trachomatis and Neisseria Gonorrhoeae Nucleic Acid Detection (12/11/2019 11:46 AM EDT) CHLAMYDIA TRACHOMATIS Not Detected Not Detected [facility] NEISERIA GONORRHOEAE Not Detected Not Detected [facility] SPECIMEN TYPE URINE [facility] Urine (Urine) 12/11/2019 11: 46 AM EDT 12/11/2019 11:47 AM EDT us Nadia Rutherford MD NON CULTURE MICROBIOLOG Y Final Result [address] [address] from Last 3 Months or Most Recently Relevant to Health Maintenance Insurance [facility] Member Subscriber Plan / Payer (Ef fective 2022-Present) Name:Dion Morgan Relation to Subscriber:Self Name:Dion Morgan Payer ID:[id number] (NAIC) Group ID:Not on file Type:Medicaid Address: [employer] CLAIMS [address] JOAN CARO MD [facility] Member Subscriber Plan / Payer (Ef fective 2022-Present) Name:Dion Morgan Relation to Subscriber:Self Name:Dion Morgan Payer ID:[id number] (NAIC) Group ID:Not on file Type:Medicaid Address: [employer] CLAIMS [address] JOAN CARO MD [facility] Member Subscriber Plan / Payer (Ef fective 2022-Present) Name:Dion Morgan Relation to Subscriber:Self Name:Dion Morgan Payer ID:[id number] (NAIC) Group ID:Not on file Type:Medicaid Address: [place] [place]S [address] JOAN CARO MD [facility] Member Subscriber Plan / Payer (Ef fective 2022-Present) Name:Dion Morgan Relation to Subscriber:Self Name:Dion Morgan Payer ID:[id number] (NAIC) Group ID:Not on file Type:Medicaid Address: [employer] CLAIMS [address] JOAN CARO MD Care Teams Tavern Keeper Relationship Specialty Start Date End Date Pcp, Unknown PCP - General 10/06/22 Pcp, Unknown PCP - Pediatrics 09/07/20 Malorie Crowley MD [address] [place] [address] Pediatrics 10/05/22 Additional Source Comments The information contained in this document represents components of the legal health record. It is not the complete legal health record.[facility]
--- OUTSIDE RECORDS SUMMARY | 2025-02-05 12:56 | XMS_ITS | Encounter Summary ---
Author Organization [email or web address] Address [address] [facility] 7 [place] [address] Care Team Providers Care Supervisor Reactor Fueling Name Role Phone Unavailable Primary Care Provider [...]
--- OUTSIDE RECORDS SUMMARY | 2025-02-05 12:56 | XMS_ITS | Encounter Summary ---
Author Organization [facility] Address [address] [facility] [address] [place] [address] Phone Care Team Providers Care Transit Authority Police Officer Name Role Phone Nadia Rutherford MD Primary Care Provider Malorie Crowley MD Primary Care Provider [phone] Morenita Snider Primary Care Provider [phone] Pcp, Unknown Primary Care Provider Unavailabl e Malorie Crowley MD Unavailable [phone] Pcp, Unknown Unavailable Unavailable Encounter Details Date Type Department Care Team (Late st Contact Info) Description 06/05/2017 Transcribe Orders [facility] Specimen Processing [address] [place] [address] Nadia Rutherford MD [address] [place] [address] Cough (Primary Dx) Social History [...] PM EST) Influenza A Ag Negative Negative [facility] Influenza B Ag Positive(A) Negative [facility] Other (Nasal) 06/05/2017 5:4 0 PM EST 06/05/2017 5:46 PM EST Nadia Rutherford MD MICROBIOLOGY - GENERAL ORDERABLES Final Result [facility] [address] [place] [address] documented in this encounter Visit Diagnoses Diagnosis Cough- Primary documented in this encounter Care Teams Transit Authority Police Officer Relationship Specialty Start Date End Date Nadia Rutherford MD PCP - General Pediatrics 06/05/17 09/07/20 Malorie Crowley MD [address] [place] [address] PCP - General Pediatrics 01/07/21 10/04/22 Morenita Snider PA [address] [place] [address] PCP - General Physician Public Affairs Specialist 10/05/22 10/05/22 Pcp, Unknown PCP - General 10/06/22 Pcp, Unknown PCP - Pediatrics 09/07/20 Malorie Crowley MD [address] [place] [address] Pediatrics 10/05/22 documented as of this encounter Additional Source Comments The information contained in this document represents components of the legal health record. It is not the complete legal health record.[facility]
--- OUTSIDE RECORDS SUMMARY | 2025-02-05 12:56 | XMS_ITS | Clinical Summary ---
Author Organization [employer] Address [address] [place] [address] 7 [place] [address] Care Team Providers Care Arc Furnace Operator Name Role Phone Unavailable Primary Care Provider [...] Most Recently Relevant to Health Maintenance Insurance [facility] MEDICAID STAND ADULT [facility]
--- OUTSIDE RECORDS SUMMARY | 2025-02-05 12:56 | XMS_ITS | Encounter Summary ---
Author Organization [facility] Address [address] [place] [address] Phone Care Team Providers Care Helminthologist Name Role Phone Nadia Rutherford MD Primary Care Provider Malorie Crowley MD Primary Care Provider [phone] Morenita Snider Primary Care Provider [phone] Pcp, Unknown Primary Care Provider Unavailabl e Malorie Crowley MD Unavailable [phone] Pcp, Unknown Unavailable Unavailable Encounter Details Date Type Department Care Team (Latest Contact Info) Description 12/11/2019 Transcribe Orders [facility] Specimen Processing [address] [place] [address] Nadia Rutherford MD [address] [place] [address] OCP (oral contraceptive pills) initiation [...] EDT) CHLAMYDIA TRACHOMATIS Not Detected Not Detected [facility] NEISERIA GONORRHOEAE Not Detected Not Detected [facility] SPECIMEN TYPE URINE [facility] Urine (Urine) 12/11/2019 11: 46 AM EDT 12/11/2019 11:47 AM EDT Nadia Rutherford MD NON CULTURE MICROBIOLOG Y Final Result [facility] [address] [place] [address] documented in this encounter Visit Diagnoses Diagnosis OCP (oral contraceptive pills) initiation- Primary General counseling for prescription of oral contraceptives documented in this encounter Care Teams Helminthologist Relationship Specialty Start Date End Date Nadia Rutherford MD PCP - General Pediatrics 06/05/17 09/07/20 Malorie Crowley MD [address] [place] [address] PCP - General Pediatrics 01/07/21 10/04/22 Morenita Snider PA [address] [place] [address] PCP - General Physician Certified Respiratory Therapist 10/05/22 10/05/22 Pcp, Unknown PCP - General 10/06/22 Pcp, Unknown PCP - Pediatrics 09/07/20 Malorie Crowley MD [address] [place] [address] Pediatrics 10/05/22 documented as of this encounter Additional Source Comments The information contained in this document represents components of the legal health record. It is not the complete legal health record.[facility]
== END 2025-02-05 11:24 | disposition home or self-care (01) ==
LOC: HO.HMCFM 10:49
PROVIDERS: PCP Physician Assistant; Visit Provider Physician Assistant
DX: R10.30 Lower abdominal pain, unspecified (principal)

== ENCOUNTER 2025-03-03 08:20 | Outpatient (REF) | payer BC, SELFPAY ==
--- NOTE | ~2025-03-03 | US_ITS ---
CLINICAL HISTORY: R59.0 - Localized enlarged lymph nodes US abdomen complete Comparison: None provided Findings: The pancreas is not well visualized due to overlying bowel gas. The aorta and inferior vena cava are normal caliber. The liver is normal in size and echotexture. There is no intrahepatic bile duct dilatation. The common duct is 3 mm in diameter. The gallbladder is normal in size. 2.1 cm mobile gallstone is present. There is no gallbladder wall thickening or pericholecystic fluid. There is no sonographic Lopez sign. The main portal vein is antegrade. The right kidney is 11.5 cm in length. The left kidney is 11.5 cm in length. The spleen is normal. IMPRESSION: 1. Cholelithiasis without sonographic findings of acute cholecystitis. This document has been electronically signed by: Janie Duckworth on 03/04/2025 10:02:17
--- NOTE | ~2025-03-03 | XR_ITS ---
EXAMINATION: XR HAND 3 VIEWS BILATERAL HISTORY: M79.641 - Pain in right hand COMPARISON: There are no prior studies available for comparison. FINDINGS: Six views of the bilateral hands are submitted. Osseous mineralization is normal. There is no fracture or dislocation. The joint spaces are preserved. The soft tissues are unremarkable. XR/XR Hand Bilat min 3v IMPRESSION: Unremarkable examination of the bilateral hands. Electronically signed by: Heber Lemon MD 03/03/2025 10:18 AM EDT
--- NOTE | ~2025-03-03 | US_ITS ---
CLINICAL HISTORY: R53.83 - Other fatigue US Neck Comparison: None provided Findings: Targeted ultrasound imaging of the left neck demonstrates mildly enlarged 1.5 x 0.8 x 1.5 cm left neck lymph node with fatty echogenic hilum. 0.7 x 0.6 x 0.6 cm left neck lymph node is present with thickened cortex. Impression: 1. Mildly enlarged 1.5 cm left cervical lymph node containing a fatty echogenic hilum. 2. 0.7 cm left cervical lymph node with thickened cortex. This document has been electronically signed by: Janie Duckworth on 03/04/2025 10:02:22
--- OUTSIDE RECORDS SUMMARY | 2025-03-03 08:29 | XMS_ITS | Encounter Summary ---
Author Organization [facility] Address [address] [facility] [address] [place] [address] Phone Care Team Providers Care Power Sweeper Operator Name Role Phone Nadia Rutherford MD Primary Care Provider Malorie Crowley MD Primary Care Provider Morenita Snider Primary Care Provider Pcp, Unknown Primary Care Provider Unavailabl e Malorie Crowley MD Unavailable [phone] Pcp, Unknown Unavailable Unavailable Encounter Details Date Type Department Care Team (Late st Contact Info) Description 06/05/2017 Transcribe Orders [facility] Specimen Processing [address] [place] [address] Nadia Rutherford MD [address] [place] [address] Cough (Primary Dx) Social History [...] PM EST) Influenza A Ag Negative Negative [facility] Influenza B Ag Positive(A) Negative [facility] Other (Nasal) 06/05/2017 5:4 0 PM EST 06/05/2017 5:46 PM EST Nadia Rutherford MD MICROBIOLOGY - GENERAL ORDERABLES Final Result [facility] [address] [place] [address] documented in this encounter Visit Diagnoses Diagnosis Cough- Primary documented in this encounter Care Teams Power Sweeper Operator Relationship Specialty Start Date End Date Nadia Rutherford MD PCP - General Pediatrics 06/05/17 09/07/20 Malorie Crowley MD [address] [place] [address] PCP - General Pediatrics 01/07/21 10/04/22 Morenita Snider PA [address] [place] [address] PCP - General Physician Local Owner Operator Truck Driver 10/05/22 10/05/22 Pcp, Unknown PCP - General 10/06/22 Pcp, Unknown PCP - Pediatrics 09/07/20 Malorie Crowley MD [address] [place] [address] Pediatrics 10/05/22 documented as of this encounter Additional Source Comments The information contained in this document represents components of the legal health record. It is not the complete legal health record.[facility]
--- OUTSIDE RECORDS SUMMARY | 2025-03-03 08:29 | XMS_ITS | Clinical Summary ---
Author Organization [employer] Address [address] [place] [address] 7 [place] [address] Care Team Providers Care Bonsai Tender Name Role Phone Unavailable Primary Care Provider [...] Most Recently Relevant to Health Maintenance Insurance [facility] MEDICAID STAND ADULT [facility]
--- OUTSIDE RECORDS SUMMARY | 2025-03-03 08:29 | XMS_ITS | Encounter Summary ---
Author Organization [facility] Address [address] [place] [address] Phone Care Team Providers Care Supply Assistant Name Role Phone Nadia Rutherford MD Primary Care Provider Malorie Crowley MD Primary Care Provider Morenita Snider Primary Care Provider Pcp, Unknown Primary Care Provider Unavailabl e Malorie Crowley MD Unavailable [phone] Pcp, Unknown Unavailable Unavailable Encounter Details Date Type Department Care Team (Latest Contact Info) Description 12/11/2019 Transcribe Orders [facility] Specimen Processing [address] [place] [address] Nadia Rutherford MD [address] [place] [address] OCP (oral contraceptive pills) initiation [...] EDT) CHLAMYDIA TRACHOMATIS Not Detected Not Detected [facility] NEISERIA GONORRHOEAE Not Detected Not Detected [facility] SPECIMEN TYPE URINE [facility] Urine (Urine) 12/11/2019 11: 46 AM EDT 12/11/2019 11:47 AM EDT Nadia Rutherford MD NON CULTURE MICROBIOLOG Y Final Result [facility] [address] [place] [address] documented in this encounter Visit Diagnoses Diagnosis OCP (oral contraceptive pills) initiation- Primary General counseling for prescription of oral contraceptives documented in this encounter Care Teams Supply Assistant Relationship Specialty Start Date End Date Nadia Rutherford MD PCP - General Pediatrics 06/05/17 09/07/20 Malorie Crowley MD [address] [place] [address] PCP - General Pediatrics 01/07/21 10/04/22 Morenita Snider PA [address] [place] [address] PCP - General Physician Customer Advisor Specialist 10/05/22 10/05/22 Pcp, Unknown PCP - General 10/06/22 Pcp, Unknown PCP - Pediatrics 09/07/20 Malorie Crowley MD [address] [place] [address] Pediatrics 10/05/22 documented as of this encounter Additional Source Comments The information contained in this document represents components of the legal health record. It is not the complete legal health record.[facility]
--- OUTSIDE RECORDS SUMMARY | 2025-03-03 08:29 | XMS_ITS | Clinical Summary ---
Author Organization [facility] Address [address] [facility] [place] [address] Phone Care Team Providers Care Patient Financial Services Coordinator Name Role Phone Pcp, Unknown Primary Care Provider Malorie Ash MD Unavailable [phone] Pcp, Unknown Unavailable Unavailable Allergies No [...] INFLUENZA VACCINE (#1) 2024 03/02/2015 COVID-19 VACCINE (2024-2 6 season) 2025 PAP SMEAR 10/05/2025 10/05/2022 HIB [...] SEE NARRATIVE - 10/11/2022 11:43 AM EDT [address] [address] Load Test Mechanic: Ebony Parrish MD CRIBBING SETTER Cytology Report FINAL DIAGNOSIS A. PAP SMEAR [...] : 2000 (Age: 22) Sex: F Institution: [facility] Location: [facility] Date of Collection: 10/05/2022 Date of Reported: 10/11/2022 11:43 Results to: JEANNE Albarran us Unknown Unknown CYTOLOGY ORDERABLES Final Res ult SEE NARRATIVE * Chlamydia Trachomatis and Neisseria Gonorrhoeae Nucleic Acid Detection (12/11/2019 11:46 AM EDT) CHLAMYDIA TRACHOMATIS Not Detected Not Detected [facility] NEISERIA GONORRHOEAE Not Detected Not Detected [facility] SPECIMEN TYPE URINE [facility] Urine (Urine) 12/11/2019 11: 46 AM EDT 12/11/2019 11:47 AM EDT us Nadia Rutherford MD NON CULTURE MICROBIOLOG Y Final Result [address] [address] from Last 3 Months or Most Recently Relevant to Health Maintenance Insurance [facility] Member Subscriber Plan / Payer (Ef fective 2022-Present) Name:Dion Morgan Relation to Subscriber:Self Name:Dion Morgan Payer ID:[id number] (NAIC) Group ID:Not on file Type:Medicaid Address: [employer] CLAIMS [address] JOAN CARO MD [facility] Member Subscriber Plan / Payer (Ef fective 2022-Present) Name:Dion Morgan Relation to Subscriber:Self Name:Dion Morgan Payer ID:[id number] (NAIC) Group ID:Not on file Type:Medicaid Address: [employer] CLAIMS [address] JOAN CARO MD [facility] Member Subscriber Plan / Payer (Ef fective 2022-Present) Name:Dion Morgan Relation to Subscriber:Self Name:Dion Morgan Payer ID:[id number] (NAIC) Group ID:Not on file Type:Medicaid Address: [place] [place] [address] JOAN CARO MD [facility] Member Subscriber Plan / Payer (Ef fective 2022-Present) Name:Dion Morgan Relation to Subscriber:Self Name:Dion Morgan Payer ID:[id number] (NAIC) Group ID:Not on file Type:Medicaid Address: [employer] CLAIMS [address] JOAN CARO MD Care Teams Patient Financial Services Coordinator Relationship Specialty Start Date End Date Pcp, Unknown PCP - General 10/06/22 Pcp, Unknown PCP - Pediatrics 09/07/20 Malorie Crowley MD [address] [place] [address] Pediatrics 10/05/22 Additional Source Comments The information contained in this document represents components of the legal health record. It is not the complete legal health record.[facility]
--- OUTSIDE RECORDS SUMMARY | 2025-03-03 08:30 | XMS_ITS | Encounter Summary ---
Author Organization [email or web address] Address [address] [facility] 7 [place] [address] Care Team Providers Care Cerner Analyst Name Role Phone Unavailable Primary Care Provider [...]
--- OUTSIDE RECORDS SUMMARY | 2025-03-03 08:30 | XMS_ITS | Encounter Summary ---
Author Organization [facility] Address [address] [facility] [address] [place] [address] Phone Care Team Providers Care Dough Mixer Operator Name Role Phone Nadia Rutherford MD Primary Care Provider Malorie Crowley MD Primary Care Provider Morenita Snider Primary Care Provider Pcp, Unknown Primary Care Provider Unavailabl e Malorie Crowley MD Unavailable [phone] Pcp, Unknown Unavailable Unavailable Encounter Details Date Type Department Care Team (Latest Contact Info) Description 05/22/2018 Transcribe Orders [facility] Specimen Processing [address] [place] [address] Nadia Rutherford MD [address] [place] [address] Encounter for routine child health [...] EST) CHLAMYDIA TRACHOMATIS Not Detected Not Detected [facility] NEISERIA GONORRHOEAE Not Detected Not Detected [facility] SPECIMEN TYPE URINE [facility] Urine (Urine) 05/22/2018 5:1 8 PM EST 05/22/2018 5:22 PM EST Nadia Rutherford MD NON CULTURE MICROBIOLOG Y Final Result [facility] [address] [place] [address] documented in this encounter Visit Diagnoses Diagnosis Encounter for routine child health examination without abnormal findings- Primary documented in this encounter Care Teams Dough Mixer Operator Relationship Specialty Start Date End Date Nadia Rutherford MD PCP - General Pediatrics 06/05/17 09/07/20 Malorie Crowley MD [address] [place] [address] PCP - General Pediatrics 01/07/21 10/04/22 Morenita Snider PA [address] [place] [address] PCP - General Physician Scheduling Clerk 10/05/22 10/05/22 Pcp, Unknown PCP - General 10/06/22 Pcp, Unknown PCP - Pediatrics 09/07/20 Malorie Crowley MD [address] [place] [address] Pediatrics 10/05/22 documented as of this encounter Additional Source Comments The information contained in this document represents components of the legal health record. It is not the complete legal health record.[facility]
--- OUTSIDE RECORDS SUMMARY | 2025-03-03 08:30 | XMS_ITS | Encounter Summary ---
Author Organization [employer] Address [address] [facility] 7 [place] [address] Care Team Providers Care Gis Software Engineer Name Role Phone Unavailable Primary Care Provider [...]
--- OUTSIDE RECORDS SUMMARY | 2025-03-03 08:30 | XMS_ITS | Encounter Summary ---
Author Organization [employer] Address [address] [facility] [address] 7 [place] [address] Care Team Providers Care Mash Preparatory Operator Name Role Phone Unavailable Primary Care [...]
--- OUTSIDE RECORDS SUMMARY | 2025-03-03 08:30 | XMS_ITS | Encounter Summary ---
Author Organization [facility] Address [address] [facility] [address] [place] [address] Phone Care Team Providers Care Recreation Professor Name Role Phone Nadia Rutherford MD Primary Care Provider Malorie Crowley MD Primary Care Provider [phone] Morenita Snider Primary Care Provider [phone] Pcp, Unknown Primary Care Provider Unavailabl e Malorie Crowley MD Unavailable [phone] Pcp, Unknown Unavailable Unavailable Encounter Details Date Type Department Care Team (Latest Contact Info) Description 05/15/2018 Transcribe Orders [facility] [address] [place] [address] Nadia Rutherford MD [address] [place] [phone] Nonspecific abnormal finding (Primary Dx) Social [...] FREE T4 1.1 0.9 - 1.7 ng/dL [facility] Blood 05/15/2018 9:26 AM EST 05/15/2018 9:30 AM EST us Nadia Rutherford MD LAB BLOOD ORDERABLES Fi nal Result Performing Organization Address City/[facility]/ZIP Co de Phone Number [address] [address] * TSH (05/15/2018 9:26 AM EST) TSH 2.26 0.27 - 4.20 uIU/mL [facility] Blood 05/15/2018 9:26 AM EST 05/15/2018 9:30 AM EST us Nadia Rutherford MD LAB BLOOD ORDERABLES Fi nal Result Performing Organization Address [facility] Co de Phone Number [address] [address] documented in this encounter Visit Diagnoses Diagnosis Nonspecific abnormal finding- Primary Other nonspecific abnormal finding documented in this encounter Care Teams Recreation Professor Relationship Specialty Start Date End Date Nadia Rutherford MD PCP - General Pediatrics 06/05/17 09/07/20 Malorie Crowley MD [address] [place] [address] PCP - General Pediatrics 01/07/21 10/04/22 Morenita Snider PA [address] [place] [address] PCP - General Physician Commercial Lending Vice President 10/05/22 10/05/22 Pcp, Unknown PCP - General 10/06/22 Pcp, Unknown PCP - Pediatrics 09/07/20 Malorie Crowley MD [address] [place] [address] Pediatrics 10/05/22 documented as of this encounter Additional Source Comments The information contained in this document represents components of the legal health record. It is not the complete legal health record.[facility]
== END 2025-03-03 08:21 | disposition home or self-care (01) ==
LOC: HO.US 08:20
PROVIDERS: PCP Physician Assistant; Visit Provider Physician Assistant
DX: M79.641 Pain in right hand (principal); M79.642 Pain in left hand; R53.83 Other fatigue; R59.0 Localized enlarged lymph nodes; R14.0 Abdominal distension (gaseous); N92.6 Irregular menstruation, unspecified; N89.8 Other specified noninflammatory disorders of vagina
CPT/HCPCS: 73130; 76536; 76700

== ENCOUNTER → 2025-03-03 08:24 | Outpatient (BNV) | payer BC, SELFPAY | PROVIDERS: PCP Physician Assistant; Visit Provider Radiology Diagnostic Radiology | DX: M79.641 Pain in right hand (principal) | CPT/HCPCS: 73130 ==

== ENCOUNTER 2025-03-05 14:55 | Outpatient (AMB) | payer BC, SELFPAY ==
--- NOTE | 2025-03-05 14:50 | MHC.PC.OV ---
Intake Visit Reasons: discuss dc medication Intake Note: Discuss discontinuing montelukast Allergies montelukast Allergy (Intermediate, Verified 03/05/25 14:51) aggitation Medication List - Last Reconciled 03/05/25 by Nancy Osborn PA-C albuterol sulfate 90 mcg/actuation 2 puffs inhalation Q4H PRN azelastine 2 sprays intranasal BID cetirizine (Zyrtec) 10 mg PO DAILY fluticasone propionate 50 mcg/actuation 1 spray intranasal DAILY naproxen (EC-Naproxen) 500 mg PO Q12H PRN triamcinolone acetonide 0.025% 1 appl topical BID 2 weeks Tobacco use date assessed: 03/05/25 Dental Screening Dental Screen Date: 01/01/25 HPI discuss dc medication HPI Details Pt is a 24 y/o female who presents today for a follow up. States that her only significant past medical history has been environmental allergies, chronic sinusitis and nasal polyps. HEENT: She has a history of chronic sinusitis and nasal polyps. Currently following with ENT and they want to start her on allergy shots. She says that she has to call to schedule this. She states in the past she has had allergy testing and was allergic to ?everything ?. She is currently on azelastine, Flonase, Singulair. She thinks that the Singulair is causing her to be agitated. States that this is somewhat helped with the congestion but she does have chronic postnasal drip and some lymphadenopathy mostly on the left side. She states that she is a bit worried because she got her ultrasound done and it looks like her lymph nodes enlarged from a previous ultrasound that she had. Her father has a history of lymphoma and in 2020. COMMUNICATIONS DESIGNER: following with COMMUNICATIONS DESIGNER was recently noted to have BV. She just completed metronidazole. General: She does feel tired a lot and wonders if she has sleep apnea. Scheduled 03/12 with sleep medicine. GI: She does get a lot of abdominal pain and bloating sometimes related to foods. Had a recent ultrasound which was consistent with gallstones. Denies fever, chills, weight loss, night sweats, nausea, vomiting or diarrhea. [facility] Medical History (Updated 03/05/25 @ 14:59 by Nancy Osborn PA-C) Sinusitis Asthma Surgical History [place] teeth extracted Family History Mother Thyroid disorder Father Thyroid disorder B-cell lymphoma Social History (Updated 03/05/25 @ 14:55 by Letha Whaley CMA) Housing: Condominium Alcohol intake: never Patient Tobacco Use Status: Never used Tobacco e-Cigarette/Vaping Use: Never Used Second Hand Smoke Exposure: No Use of substances other than those prescribed or required for medical reasons: No service: No Current occupational status: employed 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 Current occupational exposures/hazards: No Cognitive needs: No Hearing needs: No Vision needs: No Questionnaire Thrive Questionnaire Date Thrive assessed: 12/25/24 I am a: Patient What is your living situation today?: I have a steady place to live Within the past 12 months, did the food you bought not last and you didn't have the money to get more?: Never true Within the past 12 months, did you worry whether your food would run out before you got money to buy more?: Never true Do you have trouble paying for medicines?: No Do you have trouble getting transportation to medical appointments?: No Do you have trouble paying your heating and electricity bill?: No Do you have trouble taking care of your child, family member or friend?: No Do you have trouble with day-to-day activities such as bathing, preparing meals, shopping, managing finances, etc.?: No Are you currently unemployed and looking for a job?: No Are you interested in more education?: No Please select the resources that you would like help with: None Currently or been in a relationship where the following occur: No concerns reported THRIVE Score: 0 AUDIT C Alcohol Use Questionnaire (AUDIT-C) 1. How often do you have a drink containing alcohol?: Never 3. How often do you have six or more drinks on one occasion?: Never Total Score: 0 ISAK-7 AMB Questionnaire ISAK-7 Date ISAK - 7 assessed: 01/01/25 Source: Developed by Drs. Heber Hansen, Idania Hoffmann, Car Valdes and colleagues, with an educational jefferson from [employer]. Physical exam (Primary Care) Tobacco/Smoking Status: Tobacco use Status Tobacco use date assessed 03/05/25 03/05/25 14:55 Patient Tobacco Use Status Never used Tobacco 03/05/25 14:55 e-Cigarette/Vaping Use Never Used 03/05/25 14:55 Thrive Assessment: Date of Thrive Assessment Date Thrive assessed 12/25/24 03/05/25 14:50 Currently or been in a relationship where the following occur: No concerns reported Telehealth Telehealth Telehealth Platform: Telephone Location of provider rendering services: practice address Location of patient: address on file Patient Identification confirmed using: Name, : Yes Telehealth method: voice only Patient verbally consented to treatment: Yes Patient verbally consented to billing insurance company: Yes Patient informed of any privacy concerns related to visit: Yes Minutes spent on Phone/Video with Pt.: 15 Results Reviewed Results Reviewed: Impression: 1. Mildly enlarged 1.5 cm left cervical lymph node containing a fatty echogenic hilum. 2. 0.7 cm left cervical lymph node with thickened cortex. MPRESSION: 1. Cholelithiasis without sonographic findings of acute cholecystitis. Laboratory Tests 01/01/25 01/29/25 09:57 07:42 WBC 6.2 RBC 4.64 Hgb 13.4 Hct 40.7 Plt Count 217 Iron 143 TIBC 256 % Saturation 56 H Unsat Iron Binding 113 AST 31 ALT 20 Alkaline Phosphatase 61 Total Protein 7.2 Albumin 4.7 Triglycerides 58 Cholesterol 109 LDL Cholesterol, Calc 41 HDL Cholesterol 57 Vitamin B12 782 Folate 13.8 TSH 2.53 Random Cortisol 8.2 Coding Level of Care Code Tele Est Pt Level 3 (43465) Complex EM visit Add On G2211 Diagnoses Abdominal bloating R14.0 Left cervical lymphadenopathy R59.0 Gallstones K80.20 Assessment & Plan Assessment & Plan (1) Abdominal bloating: Code(s): R14.0 - Abdominal distension (gaseous) Category: Medical Plan: Advised to follow a low-fat diet (2) Left cervical lymphadenopathy: Code(s): R59.0 - Localized enlarged lymph nodes Category: Medical Plan: Persistent lymphadenopathy. We will refer to General surgery for consultation We will recheck ultrasound in 3 months (3) Gallstones: Code(s): K80.20 - Calculus of gallbladder without cholecystitis without obstruction Category: Medical Plan: Referral to General surgery. We discussed warning signs of gallstones that would require emergent medical treatment. Plan Advised to stop montelukast Orders: Orders Complete Blood Count Auto Diff Today K80.20 - Calculus of gallbladder without cholecystitis without obstruction, R14.0 - Abdominal distension (gaseous), R59.0 - Localized enlarged lymph nodes Comprehensive Met. Panel Today K80.20 - Calculus of gallbladder without cholecystitis without obstruction, R14.0 - Abdominal distension (gaseous), R59.0 - Localized enlarged lymph nodes TSH reflex Free T4 Today K80.20 - Calculus of gallbladder without cholecystitis without obstruction, R14.0 - Abdominal distension (gaseous), R59.0 - Localized enlarged lymph nodes US soft tiss head and/or neck 3 Months R59.0 - Localized enlarged lymph nodes Referrals General Surgery Referral K80.20 - Calculus of gallbladder without cholecystitis without obstruction, R59.0 - Localized enlarged lymph nodes
--- OUTSIDE RECORDS SUMMARY | 2025-03-05 18:48 | XMS_ITS | Encounter Summary ---
Author Organization [facility] Address [address] [facility] [address] [place] [address] Phone Care Team Providers Care Housekeeping Assistant Name Role Phone Nadia Rutherford MD Primary Care Provider Malorie Crowley MD Primary Care Provider Morenita Snider Primary Care Provider Pcp, Unknown Primary Care Provider Unavailabl e Malorie Crowley MD Unavailable [phone] Pcp, Unknown Unavailable Unavailable Encounter Details Date Type Department Care Team (Latest Contact Info) Description 12/11/2019 Transcribe Orders [facility] Specimen Processing [address] [place] [address] Nadia Rutherford MD [address] [place] [address] OCP (oral contraceptive pills) initiation [...] EDT) CHLAMYDIA TRACHOMATIS Not Detected Not Detected [facility] NEISERIA GONORRHOEAE Not Detected Not Detected [facility] SPECIMEN TYPE URINE [facility] Urine (Urine) 12/11/2019 11: 46 AM EDT 12/11/2019 11:47 AM EDT Nadia Rutherford MD NON CULTURE MICROBIOLOG Y Final Result [facility] [address] [place] [address] documented in this encounter Visit Diagnoses Diagnosis OCP (oral contraceptive pills) initiation- Primary General counseling for prescription of oral contraceptives documented in this encounter Care Teams Housekeeping Assistant Relationship Specialty Start Date End Date Nadia Rutherford MD PCP - General Pediatrics 06/05/17 09/07/20 Malorie Crowley MD [address] [place] [address] PCP - General Pediatrics 01/07/21 10/04/22 Morenita Snider PA [address] [place] [address] PCP - General Physician Investigator 10/05/22 10/05/22 Pcp, Unknown PCP - General 10/06/22 Pcp, Unknown PCP - Pediatrics 09/07/20 Malorie Crowley MD [address] [place] [address] Pediatrics 10/05/22 documented as of this encounter Additional Source Comments The information contained in this document represents components of the legal health record. It is not the complete legal health record.[facility]
--- OUTSIDE RECORDS SUMMARY | 2025-03-05 18:48 | XMS_ITS | Encounter Summary ---
Author Organization [facility] Address [address] [facility] [address] [place] [address] Phone Care Team Providers Care Unstacker Name Role Phone Nadia Rutherford MD Primary Care Provider Malorie Crowley MD Primary Care Provider Morenita Snider Primary Care Provider Pcp, Unknown Primary Care Provider Unavailabl e Malorie Crowley MD Unavailable [phone] Pcp, Unknown Unavailable Unavailable Encounter Details Date Type Department Care Team (Latest Contact Info) Description 05/15/2018 Transcribe Orders [facility] [address] [place] [address] Nadia Rutherford MD [address] [place] [phone] Nonspecific abnormal finding (Primary Dx) Social [...] FREE T4 1.1 0.9 - 1.7 ng/dL [facility] Blood 05/15/2018 9:26 AM EST 05/15/2018 9:30 AM EST us Nadia Rutherford MD LAB BLOOD ORDERABLES Fi nal Result Performing Organization Address City/[facility]/ZIP Co de Phone Number [address] [address] * TSH (05/15/2018 9:26 AM EST) TSH 2.26 0.27 - 4.20 uIU/mL [facility] Blood 05/15/2018 9:26 AM EST 05/15/2018 9:30 AM EST us Nadia Rutherford MD LAB BLOOD ORDERABLES Fi nal Result Performing Organization Address [facility] Co de Phone Number [address] [address] documented in this encounter Visit Diagnoses Diagnosis Nonspecific abnormal finding- Primary Other nonspecific abnormal finding documented in this encounter Care Teams Unstacker Relationship Specialty Start Date End Date Nadia Rutherford MD PCP - General Pediatrics 06/05/17 09/07/20 Malorie Crowley MD [address] [place] [address] PCP - General Pediatrics 01/07/21 10/04/22 Morenita Snider PA [address] [place] [address] PCP - General Physician Feller Machine Operator 10/05/22 10/05/22 Pcp, Unknown PCP - General 10/06/22 Pcp, Unknown PCP - Pediatrics 09/07/20 Malorie Crowley MD [address] [place] [address] Pediatrics 10/05/22 documented as of this encounter Additional Source Comments The information contained in this document represents components of the legal health record. It is not the complete legal health record.[facility]
--- OUTSIDE RECORDS SUMMARY | 2025-03-05 18:48 | XMS_ITS | Data Portability ---
Author Organization [place] - [facility], Allergy Address [address] [place] [address] Care Team Providers Care Handyman Name Role Phone CLEM PITTMAN Primary Care Provider [phone] Assessment Encounter Date Assessment Date Assessment LastModified by Organization Details LastModified Time 10/03/2024 10/03/2024 Patient with significant history of allergic rhinitis, reactive airway disease and nasal polyps. No history of aspirin allergy. Feels better with consistent use of fluticasone and azelastine but still has reduced sense of smell. Laboratory studies were normal. Prior skin testing showed significant pollen allergy. CT scan today shows moderate sinus thickening right greater than left. At this point I have suggested we add Singulair to help manage both her allergy and reactive airway disease, continue fluticasone and azelastine. Consider allergy shots or allergy drop therapy. [email or web address] Not available 10/03/2024 11:18:15 Plan of Treatment Reminders Order Date Submit Date Provider Last Modified By Organization Details Last Modified Time Details Appointments None recorded . Lab ige, total, serum 2024 025 ALYSON [facility] (Centralized Electronic Ordering - All Locations), Patient Can Go To The Location Of Their Choice, [id number] 5 01:21:12 CBC w/ auto diff 2024 025 ALYSON [facility] (Centralized Electronic Ordering - All Locations), Patient Can Go To The Location Of Their Choice, [id number] 5 01:21:11 Referral None recorded . Procedures allergen immunoth erapy; multiple injectio ns (PROC) 2024 025 [email or web address] Not available 10:07:39 Surgeries None recorded . Imaging CT, sinuses, w/o contrast 2024 025 [email or web address] [facility], [address] [place] [address], [phone], 5 13:05:39 CT, maxillof acial, w/o contrast 2024 025 [facility], [address] [place] [address], [phone], 5 16:50:31 Medication Orders epinephr ine 0.3 mg/0.3 mL injectio n, auto-inj brenda 2024 [id number], [address] [place] [address], [id number], 11:17:01 monteluk ast 10 mg tablet 2024 025 [facility] #31921, [address] [place] [address], [id number], 5 11:15:48 azelasti ne 137 mcg (0.1 %) nasal spray 2024 025 [facility] #27617, [address] [place] [address], [id number], 5 14:12:04 fluticas one propiona te 50 mcg/actu ation nasal spray,delgado spension 2024 025 [facility] #46976, [address] [place] [address], [id number], 5 14:12:06 Patient TargetsNo targets recorded. Patient Instructions Encounter Date Encounter Id Patient Instructions Last Modified By Organization Details Last Modified Time 08/20/2024 [id number] 24-year-old female with allergic rhinitis, mild intermittent asthma and chronic nasal congestion. She reports having 2 cats at home and may have been allergic to them as well. Examination shows pale boggy blue inferior turbinates that respond minimally to vasoconstriction. 0 degree nasal endoscopy shows middle meatal polyps right greater than left. These clearly are smaller due to her recent course of methylprednisolon e. At this point I have suggested increasing the fluticasone to 2 sprays each nostril twice daily and adding azelastine 2 sprays each nostril twice daily to try to manage the allergy and polyp inflammation. I will check an IgE level and a CBC with differential to look at her eosinophil count. She will upload the results of her allergy testing to our portal for review. Strongly suggest environmental controls at home. Arrange for CT of the sinuses to determine the extent of disease [email or web address] Not available 08/20/2024 14:09:16 Reason for Referral None Reported. Results Created Date Observation Date Name Description Value Unit Range Abnormal Flag Note LastModifiedBy Organization Detail LastModifiedTime 08/21/1908/21/2024 CBC WITH DIFFE RENTI AL/PL ATELE T WBC 8.9 x10e3 /uL 3.4-10 .8 normal Not Available [facility] ([facility]) [address] [place], [address], 08/23/2024 01:21:11 08/21/19 25 08/21/2024 CBC WITH DIFFE RENTI AL/PL ATELE T RBC 4.97 x10e6 /uL 3.77-5 .28 normal Not Available [facility] ([facility]) [address] [place], [address], 08/23/2024 01:21:11 08/21/19 25 08/21/2024 CBC WITH DIFFE RENTI AL/PL ATELE T hemoglobin 13.8 g/dL 11.1-1 5.9 normal Not Available [facility] ([facility]) [address] [place], [address], 08/23/2024 01:21:11 08/21/19 25 08/21/2024 CBC WITH DIFFE RENTI AL/PL ATELE T hematocrit 43.3 % 34.0-4 6.6 normal Not Available [facility] ([facility]) [address] [place], [address], 08/23/2024 01:21:11 08/21/19 25 08/21/2024 CBC WITH DIFFE RENTI AL/PL ATELE T MCV 87 fL 79-97 normal Not Available [facility] ([facility]) [address] [facility], [place], [address], 08/23/2024 01:21:11 08/21/19 25 08/21/2024 CBC WITH DIFFE RENTI AL/PL ATELE T MCH 27.8 pg 26.6-3 3.0 normal Not Available [facility] ([facility]) [address] [facility], [place], [address], 08/23/2024 01:21:11 08/21/19 25 08/21/2024 CBC WITH DIFFE RENTI AL/PL ATELE T MCHC 31.9 g/dL 31.5-3 5.7 normal Not Available [facility] ([facility]) [address] [place], [address], 08/23/2024 01:21:11 08/21/19 25 08/21/2024 CBC WITH DIFFE RENTI AL/PL ATELE T RDW 12.0 % 11.7-1 5.4 Not Available [facility] ([facility]) [address] [place], [address], 08/23/2024 01:21:11 08/21/19 25 08/21/2024 CBC WITH DIFFE RENTI AL/PL ATELE T platelets 333 x10e3 /uL 150-45 0 normal Not Available [facility] ([facility]) [address] [place], [address], 08/23/2024 01:21:11 08/21/19 25 08/21/2024 CBC WITH DIFFE RENTI AL/PL ATELE T neutrophils 67 % not estab. normal Not Available [facility] ([facility]) [address] [facility], [place], [address], 08/23/2024 01:21:11 08/21/19 25 08/21/2024 CBC WITH DIFFE RENTI AL/PL ATELE T lymphs 23 % not estab. normal Not Available [facility] ([facility]) [address] [facility], [place], [address], 08/23/2024 01:21:11 08/21/19 25 08/21/2024 CBC WITH DIFFE RENTI AL/PL ATELE T monocytes 6 % not estab. normal Not Available [facility] ([facility]) [address] [facility], [place], [address], 08/23/2024 01:21:11 08/21/19 25 08/21/2024 CBC WITH DIFFE RENTI AL/PL ATELE T eos 3 % not estab. normal Not Available [facility] ([facility]) [address] [facility], [place], [address], 08/23/2024 01:21:11 08/21/19 25 08/21/2024 CBC WITH DIFFE RENTI AL/PL ATELE T basos 1 % not estab. normal Not Available [facility] ([facility]) [address] [facility], [place], [address], 08/23/2024 01:21:11 08/21/19 25 08/21/2024 CBC WITH DIFFE RENTI AL/PL ATELE T immature cells ACCESS CONTROL SPECIALIST Not Available [facility] ([facility]) [address] [facility], [place], [address], 08/23/2024 01:21:11 08/21/19 25 08/21/2024 CBC WITH DIFFE RENTI AL/PL ATELE T neutrophils (absolute) 5.9 x10e3 /uL 1.4-7. 0 normal Not Available [facility] ([facility]) [address] [place], [address], 08/23/2024 01:21:11 08/21/19 25 08/21/2024 CBC WITH DIFFE RENTI AL/PL ATELE T lymphs (absolute) 2.0 x10e3 /uL 0.7-3. 1 normal Not Available [facility] ([facility]) [address] [facility], [place], [address], 08/23/2024 01:21:11 08/21/19 25 08/21/2024 CBC WITH DIFFE RENTI AL/PL ATELE T monocytes(ab solute) 0.6 x10e3 /uL 0.1-0. 9 normal Not Available [facility] ([facility]) [address] [place], [address], 08/23/2024 01:21:11 08/21/19 25 08/21/2024 CBC WITH DIFFE RENTI AL/PL ATELE T eos (absolute) 0.2 x10e3 /uL 0.0-0. 4 normal Not Available [facility] ([facility]) [address] [place], [address], 08/23/2024 01:21:11 08/21/19 25 08/21/2024 CBC WITH DIFFE RENTI AL/PL ATELE T baso (absolute) 0.0 x10e3 /uL 0.0-0. 2 normal Not Available [facility] ([facility]) [address] [place], [address], 08/23/2024 01:21:11 08/21/19 25 08/21/2024 CBC WITH DIFFE RENTI AL/PL ATELE T immature granulocytes 0 % not estab. Not Available [facility] ([facility]) [address] [place], [address], 08/23/2024 01:21:11 08/21/19 25 08/21/2024 CBC WITH DIFFE RENTI AL/PL ATELE T immature grans (abs) 0.0 x10e3 /uL 0.0-0. 1 Not Available [facility] ([facility]) [address] [facility], [place], [address], 08/23/2024 01:21:11 08/21/19 25 08/21/2024 CBC WITH DIFFE RENTI AL/PL ATELE T NRBC ACCESS CONTROL SPECIALIST Not Available [facility] ([facility]) [address] [facility], [place], [address], 08/23/2024 01:21:11 08/21/19 25 08/21/2024 CBC WITH DIFFE RENTI AL/PL ATELE T hematology comments: ACCESS CONTROL SPECIALIST Not Available [facility] ([facility]) [address] [facility], [place], [address], 08/23/2024 01:21:11 08/21/19 25 08/23/2024 IMMUN OGLOB ULIN E, TOTAL immunoglobul in E, total 349 IU/mL 6-495 Not Available [facility] ([facility]) [address] [facility], [place], [address], 08/23/2024 01:21:12 10/04/[address], sinus es, w/o contr ast No observ ation record ed. [facility] [address], [address], 10/03/2024 11:17:52 10/23/19 25 10/03/2024 CT, sinus es, w/o contr ast No observ ation record ed. [facility] [address], [address], 10/22/2024 14:24:12 Result Notes None recorded. Problems Name Problem SNOMED Code Status Onset Date Resolution Date Notes Provider Name and Address Organization Details Recorded Time Hypertrophy of nasal turbinates 55314128 Active 2024 SALLY MOREIRA MD [address] [place] [address] [place], [address], [facility] - [facility] [place] 13:48:15 Chronic sinusitis 75693873 Active 2024 SALLY MOREIRA MD [address] [address], [place], [address], [facility] - [facility] [place] 13:48:18 Allergic rhinitis 03495585 Active 2024 SALLY MOREIRA MD [address] [facility] [address] [facility], [place], [address], [facility] - [facility] [place] 13:48:20 Polyp of nasal cavity 337298305 Active 2024 SALLY MOREIRA MD [address] [facility], [address] [facility], [place], [address], 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 - [facility] [place] 14:07:39 Seasonal allergic rhinitis 153864774 Active 2024 SALLY MOREIRA MD [address] [address], [facility] [place], [address], [facility] - [facility] [place] 14:10:32 Mild intermittent asthma 153404162 Active 2024 SALLY MOREIRA MD [address] [facility] [address] [facility], [facility] [place], [address], [facility] - [facility] [place] 11:15:25 Problem Notes None recorded. Medical Equipment None Reported. Medications Name Sig Start Date Stop Date Status Note LastModified by Organization Details LastModified Time ciprofloxac in 0.3 % eye drops APPLY 1 DROP INTO RIGHT EYE 4 TIMES A DAY X5 DAYS 08/20 completed Not Available Not Available Not Available montelukast 10 mg tablet TAKE 1 TABLET BY MOUTH EVERY DAY active Not Available Not Available No t Available azelastine 137 mcg (0.1 %) nasal spray USE 2 SPRAYS IN EACH NOSTRIL TWICE DAILY active Not Available Not Available No t Available epinephrine 0.3 mg/0.3 mL injection, auto-inject or TAKE ONE AUTO INJECTION ROUTE FOR 180 DAYS FOR ANAPHYLAX IS. active Not Available Not Available No t Available methylpredn isolone 4 mg tablets in a dose pack FOLLOW PACKAGE DIRECTION S 08/20 completed Not Available Not Available Not Available albuterol sulfate HFA 90 mcg/actuati on aerosol inhaler INHALE 2 PUFFS BY MOUTH EVERY 4 HOURS NEEDED active Not Available Not Available No t Available fluticasone propionate 50 mcg/actuati on nasal spray,suspe nsion SHAKE LIQUID AND USE 1 SPRAY IN EACH NOSTRIL EVERY DAY active Not Available Not Available No t Available amoxicillin 875 mg-potassiu m clavulanate 125 mg tablet TAKE 1 TABLET BY MOUTH TWICE DAILY FOR 7 DAYS 08/27 completed Not Available Not Available Not Available tobramycin 0.3 %-dexametha sone 0.1 % eye drops,suspe nsion SHAKE WELL AND INSTILL ONE DROP INTO THE RIGHT EYE FOUR TIMES DAILY 08/20 completed Not Available Not Available Not Available moxifloxaci n 0.5 % eye drops 08/20 completed Not Available Not Available Not Available Vitals Date Recorded Body height Body mass index (BMI) Body weight Provider Name and Address Organization Details Last Updated DateTime 08/20/2024 167.64 cm 37.1 kg/m2 906423.25 g Taylor Bishop [place] - [facility] 08/20/2024 13:22:29 Social History Question Answer Notes LastModified by Organizat ion Details LastModified Time Tobacco Smoking Status Never Smoker SALLY CAPELLAN MD [address] [place] [address], [address], [place] - [facility] 10/03/2024 11:11:58 What Type Of Wall Crane Operator Do You Use? None Information not available 10/03/2024 Do You Have Any Pets? Yes Information not available 10/03/2024 Are You Passively Exposed To Smoke? No Information not available 10/03/2024 Are There Any Smokers In Your House? No Information not available 10/03/2024 Sex: Unknown Functional Status Question Answer Note LastModified by Organizat ion Details LastModified Time Do you use any illicit or recreational drugs? No Information not available 10/03/2024 Do you or have you ever used any other forms of tobacco or nicotine? No Information not available 10/03/2024 What is your level of alcohol consumption? None Information not available 10/03/2024 What type of noise exposure are you exposed to? Industrial Information not available 10/03/2024 Mental Status None recorded. Family History Relationship Description Onset Age of this Age Resolved Age Notes LastModified by Organization Details LastModified Time Mother Disorder of thyroid gland [email or web address] Not available 11:15:57 Father Disorder of thyroid gland [email or web address] Not available 11:16:06 Father Malignant lymphoma [email or web address] Not available 11:16:19 Medical History Condition Response Allergies/Hayfever Y Heart Problems N Anxiety N Tonsil Infections N Emphysema N Migraines N Thyroid Problems N COPD N Depression N Developmental Delay N Glaucoma N Nasal or Sinus Problems Y Anemia N Immune System Disorder N Anesthesia Complications N Heart Attack ([place]) N Other Skin Condition N Diabetes N Rhinitis Y Bleeding Disorder N Food Allergy Y Hearing Loss N Arthritis N Hyperlipidemia N Cancer N Stroke N Dementia N Nasal polyps Y Asthma Y Sleep Disorder N High Cholesterol N GERD/Reflux N Liver Disease N Headaches Y Fibromyalgia N Hypertension N Speech Delay N Kidney Disease N Gynecological HistoryNo gynecological history recorded. Obstetrics History GPAL:G 0 P 0 0 0 0 Past Encounters Encounter ID Performer Location Encounter Start Date Encounter Closed Date Diagnosis/Indication Diagnosis SNOMED-CT Code Diagnosis ICD10 Code Diagnosis IMO Codes Diagnosis Note [id number] SALLY HINOJOSA MD [facility] [address] [address] 08/20/2024 13:13:12 08/20/2024 14:13:48 Hypertrophy of nasal turbinates 60877673 J34.3 Chronic sinusitis 434998 00 J32.9 Allergic rhinitis 076558 04 J30.9 Polyp of nasal cavity 73 4255230 J33.0 Polypoid s inus degeneration 75967043 J33.1 [id number] SALLY HINOJOSA MD [facility] [address] [address] 10/03/2024 10:38:10 10/03/2024 13:05:39 Chronic sinusitis 88521708 J32.9 Hypertroph y of nasal turbinates 99572755 J34.3 Polypoid s inus degeneration 60868617 J33.1 Allergic rhinitis 147046 04 J30.9 We also discussed the role of immunother apy. I explained that this is instituted for the most significan t of allergies and involves the introducti on of increasing ly graduated dosages of the appropriat e allergens by subcutaneo us injection to facilitate tolerance. I explained about the likelihood of some improvemen t usually within a three to six month time period provided that the patient is compliant with therapy. It may take substantia lly longer for patients with severe allergy. We spoke about the duration of therapy, which typically lasts from three to five years though at times can be indefinite . We also discussed the risk of anaphylaxi s with therapy. Use of an Epipen discussed. Mild inter mittent asthma 994605654 J45.20 0350641 Health Concerns Section Related Observation LastModified by Organization Detai ls LastModified Time None Recorded Concern Status LastModified by Organization Details LastModified Time None Recorded Advance Directives Directive None Recorded Payers Insurance Date Sequence Insurance Name Policy Number Policy Hernandez Covered Member ID Hernandez Member ID Guarantor Name 12/25/2024 1 [facility] [id number] [employer] [id number] Zaynab Cathy 08/20/2024 1 [facility] [employer] [id number] [facility] Notes Date Note Type Note Provider Name and Address Organization Details Recorded Time 08/20/2024 text/html ROS as noted in the HPI 24-year-old female with history of allergic rhinitis, mild intermittent asthma and recent history of corneal ulceration. She was treated with topical antibiotic and steroid eyedrops. She had to avoid wearing her contacts for several months. The eye symptoms have resolved. She had allergy testing last year at [facility]. Reports many positive reactions. They suggested fexofenadine in the morning and cetirizine at night. She did not feel that was very helpful. Does not recall any blood work. Recently had increased congestion on the right side with facial pain and pressure treated with topical steroids and antibiotics. Still notes nasal congestion last week was treated with methylprednisolone , fluticasone and amoxicillin-Clav yesterday. Continues on saline irrigations with some improvement but still very symptomaticNo known sensitivity to ibuprofen or nonsteroidal anti-inflammatory drugsSNOT=29Nose=8 5 SALLY CAPELLAN MD [address] [facility], [place], [address], [facility] - [facility] 08/20/2024 14:12:01 10/03/2024 text/html ROS as noted in the HPI Patient with significant history of allergic rhinitis, reactive airway disease and nasal polyps. No history of aspirin allergy. Feels better with consistent use of fluticasone and azelastine but still has reduced sense of smell. Laboratory studies were normal. Prior skin testing showed significant pollen allergy. SALLY CAPELLAN MD [address] [facility], [place], [address], [facility] 10/03/2024 11:19:25 OBGyn Episode No OBEpisode recorded.
--- OUTSIDE RECORDS SUMMARY | 2025-03-05 18:48 | XMS_ITS | Clinical Summary ---
Author Organization [facility] Address [address] [place] [address] Phone Care Team Providers Care Transcript Evaluator Name Role Phone Pcp, Unknown Primary Care Provider Malorie Ash MD Unavailable [phone] Pcp, Unknown Unavailable Unavailable Allergies No [...] SEE NARRATIVE - 10/11/2022 11:43 AM EDT [address] [address] Gift Consultant: Ebony Parrish MD CORE PLACER Cytology Report FINAL DIAGNOSIS A. PAP SMEAR [...] : 2000 (Age: 22) Sex: F Institution: [facility] Location: [facility] Date of Collection: 10/05/2022 Date of Reported: 10/11/2022 11:43 Results to: JEANNE Albarran us Unknown Unknown CYTOLOGY ORDERABLES Final Res ult SEE NARRATIVE * Chlamydia Trachomatis and Neisseria Gonorrhoeae Nucleic Acid Detection (12/11/2019 11:46 AM EDT) CHLAMYDIA TRACHOMATIS Not Detected Not Detected [facility] NEISERIA GONORRHOEAE Not Detected Not Detected [facility] SPECIMEN TYPE URINE [facility] Urine (Urine) 12/11/2019 11: 46 AM EDT 12/11/2019 11:47 AM EDT us Nadia Rutherford MD NON CULTURE MICROBIOLOG Y Final Result [address] [address] from Last 3 Months or Most Recently [...] (NAIC) Group ID:Not on file Type:Medicaid Address: [employer] CLAIMS [address] JOAN CARO MD [facility] ACO Member Subscriber Plan / Payer (Ef fective 2022-Present) Name:Dion Morgan Relation to Subscriber:Self Name:Dion Morgan Payer ID:[id number] (NAIC) Group ID:Not on file Type:Medicaid Address: [employer] CLAIMS [address] JOAN CARO MD Care Teams Transcript Evaluator Relationship Specialty Start Date End Date Pcp, Unknown PCP - General 10/06/22 Pcp, Unknown PCP - Pediatrics 09/07/20 Malorie Crowley MD [address] [place] [address] Pediatrics 10/05/22 Additional Source Comments The information contained in this document represents components of the legal health record. It is not the complete legal health record.[facility]
--- OUTSIDE RECORDS SUMMARY | 2025-03-05 18:48 | XMS_ITS | Encounter Summary ---
Author Organization [facility] Address [address] [facility] [address] [place] [address] Phone Care Team Providers Care Saw Operator Name Role Phone Nadia Rutherford MD Primary Care Provider Malorie Crowley MD Primary Care Provider Morenita Snider Primary Care Provider Pcp, Unknown Primary Care Provider Unavailabl e Malorie Crowley MD Unavailable [phone] Pcp, Unknown Unavailable Unavailable Encounter Details Date Type Department Care Team (Latest Contact Info) Description 05/22/2018 Transcribe Orders [facility] Specimen Processing [address] [place] [address] Nadia Rutherford MD [address] [place] [address] Encounter for routine child health [...] EST) CHLAMYDIA TRACHOMATIS Not Detected Not Detected [facility] NEISERIA GONORRHOEAE Not Detected Not Detected [facility] SPECIMEN TYPE URINE [facility] Urine (Urine) 05/22/2018 5:1 8 PM EST 05/22/2018 5:22 PM EST Nadia Rutherford MD NON CULTURE MICROBIOLOG Y Final Result [facility] [address] [place] [address] documented in this encounter Visit Diagnoses Diagnosis Encounter for routine child health examination without abnormal findings- Primary documented in this encounter Care Teams Saw Operator Relationship Specialty Start Date End Date Nadia Rutherford MD PCP - General Pediatrics 06/05/17 09/07/20 Malorie Crowley MD [address] [place] [address] PCP - General Pediatrics 01/07/21 10/04/22 Morenita Snider PA [address] [place] [address] PCP - General Physician Tandem Operator 10/05/22 10/05/22 Pcp, Unknown PCP - General 10/06/22 Pcp, Unknown PCP - Pediatrics 09/07/20 Malorie Crowley MD [address] [place] [address] Pediatrics 10/05/22 documented as of this encounter Additional Source Comments The information contained in this document represents components of the legal health record. It is not the complete legal health record.[facility]
--- OUTSIDE RECORDS SUMMARY | 2025-03-05 18:48 | XMS_ITS | Clinical Summary ---
Author Organization [employer] Address [address] [place] [address] 7 [place] [address] Care Team Providers Care Acquisition Advisor Name Role Phone Unavailable Primary Care Provider [...] Most Recently Relevant to Health Maintenance Insurance [facility]
--- OUTSIDE RECORDS SUMMARY | 2025-03-05 18:48 | XMS_ITS | Encounter Summary ---
Author Organization [employer] Address [address] 7 [place] [address] Care Team Providers Care Natural Resources Specialist Name Role Phone Unavailable Primary Care [...]
--- OUTSIDE RECORDS SUMMARY | 2025-03-05 18:48 | XMS_ITS | Encounter Summary ---
Author Organization [employer] Address [address] [facility] 7 [place] [address] Care Team Providers Care Rosin Barrel Filler Name Role Phone Unavailable Primary Care Provider [...]
--- OUTSIDE RECORDS SUMMARY | 2025-03-05 18:48 | XMS_ITS | Encounter Summary ---
Author Organization [employer] Address [address] [facility] 7 [place] [address] Care Team Providers Care Pipe Maker Name Role Phone Unavailable Primary Care Provider [...]
--- OUTSIDE RECORDS SUMMARY | 2025-03-05 18:48 | XMS_ITS | Encounter Summary ---
Author Organization [facility] Address [address] [facility] [address] [place] [address] Phone Care Team Providers Care Tower Air Traffic Control Specialist Name Role Phone Nadia Rutherford MD Primary Care Provider Malorie Crowley MD Primary Care Provider Morenita Snider Primary Care Provider [phone] Pcp, Unknown Primary Care Provider Unavailabl e Malorie Crowley MD Unavailable [phone] Pcp, Unknown Unavailable Unavailable Encounter Details Date Type Department Care Team (Late st Contact Info) Description 06/05/2017 Transcribe Orders [facility] Specimen Processing 30 [place] [address] Nadia Rutherford MD [address] [place] [address] Cough (Primary Dx) Social History [...] PM EST) Influenza A Ag Negative Negative [facility] Influenza B Ag Positive(A) Negative [facility] Other (Nasal) 06/05/2017 5:4 0 PM EST 06/05/2017 5:46 PM EST Nadia Rutherford MD MICROBIOLOGY - GENERAL ORDERABLES Final Result [facility] [address] [place] [address] documented in this encounter Visit Diagnoses Diagnosis Cough- Primary documented in this encounter Care Teams Tower Air Traffic Control Specialist Relationship Specialty Start Date End Date Nadia Rutherford MD PCP - General Pediatrics 06/05/17 09/07/20 Malorie Crowley MD [address] [place] [address] PCP - General Pediatrics 01/07/21 10/04/22 Morenita Snider PA [address] [place] [address] PCP - General Physician Market Research Worker 10/05/22 10/05/22 Pcp, Unknown PCP - General 10/06/22 Pcp, Unknown PCP - Pediatrics 09/07/20 Malorie Crowley MD [address] [place] [address] Pediatrics 10/05/22 documented as of this encounter Additional Source Comments The information contained in this document represents components of the legal health record. It is not the complete legal health record.[facility]
== END 2025-03-05 17:05 | disposition home or self-care (01) ==
LOC: HO.HMCFM 14:55
PROVIDERS: PCP Physician Assistant; Visit Provider Physician Assistant
DX: R14.0 Abdominal distension (gaseous) (principal); R59.0 Localized enlarged lymph nodes; K80.20 Calculus of gallbladder without cholecystitis without obstruction

== ENCOUNTER → 2025-03-12 15:57 | Outpatient (REF) | payer BC, SELFPAY ==
--- OUTSIDE RECORDS SUMMARY | 2025-03-12 19:23 | XMS_ITS | Encounter Summary ---
Author Organization [facility] Address [address] [facility] [address] [place] [address] Phone Care Team Providers Care Pickle Water Pump Operator Name Role Phone Nadia Rutherford MD Primary Care Provider Malorie Crowley MD Primary Care Provider Morenita Snider Primary Care Provider Pcp, Unknown Primary Care Provider Unavailabl e Malorie Crowley MD Unavailable [phone] Pcp, Unknown Unavailable Unavailable Encounter Details Date Type Department Care Team (Late st Contact Info) Description 06/05/2017 Transcribe Orders [facility] Specimen Processing 30 [place] [address] Nadia Rutherford MD 27 [place] [address] Cough (Primary Dx) Social History [...] PM EST) Influenza A Ag Negative Negative [facility] Influenza B Ag Positive(A) Negative [facility] Other (Nasal) 06/05/2017 5:4 0 PM EST 06/05/2017 5:46 PM EST Nadia Rutherford MD MICROBIOLOGY - GENERAL ORDERABLES Final Result [facility] [address] [place] [address] documented in this encounter Visit Diagnoses Diagnosis Cough- Primary documented in this encounter Care Teams Pickle Water Pump Operator Relationship Specialty Start Date End Date Nadia Rutherford MD PCP - General Pediatrics 06/05/17 09/07/20 Malorie Crowley MD [address] [place] [address] PCP - General Pediatrics 01/07/21 10/04/22 Morenita Snider PA [address] [place] [address] PCP - General Physician Bessemer Regulator 10/05/22 10/05/22 Pcp, Unknown PCP - General 10/06/22 Pcp, Unknown PCP - Pediatrics 09/07/20 Malorie Crowley MD [address] [place] [address] Pediatrics 10/05/22 documented as of this encounter Additional Source Comments The information contained in this document represents components of the legal health record. It is not the complete legal health record.[facility]
--- OUTSIDE RECORDS SUMMARY | 2025-03-12 19:23 | XMS_ITS | Encounter Summary ---
Author Organization [employer] Address [address] [facility] 7 [place] [address] Care Team Providers Care Algology Teacher Name Role Phone Unavailable Primary Care Provider [...]
--- OUTSIDE RECORDS SUMMARY | 2025-03-12 19:23 | XMS_ITS | Encounter Summary ---
Author Organization [employer] Address [address] 7 [place] [address] Care Team Providers Care Historical Manuscripts Curator Name Role Phone Unavailable Primary Care Provider [...]
--- OUTSIDE RECORDS SUMMARY | 2025-03-12 19:23 | XMS_ITS | Encounter Summary ---
Author Organization [facility] Address [address] [place] [address] Phone Care Team Providers Care Computer Terminal Operator Name Role Phone Nadia Rutherford MD Primary Care Provider Malorie Crowley MD Primary Care Provider [phone] Morenita Snider Primary Care Provider Pcp, Unknown Primary Care Provider Unavailabl e Malorie Crowley MD Unavailable [phone] Pcp, Unknown Unavailable Unavailable Encounter Details Date Type Department Care Team (Latest Contact Info) Description 05/15/2018 Transcribe Orders [facility] [address] [place] [address] Nadia Rutherford MD [address] [place] [address] Nonspecific abnormal finding (Primary Dx) Social [...] FREE T4 1.1 0.9 - 1.7 ng/dL [facility] Blood 05/15/2018 9:26 AM EST 05/15/2018 9:30 AM EST us Nadia Rutherford MD LAB BLOOD ORDERABLES Fi nal Result Performing Organization Address City/[facility]/ZIP Co de Phone Number [address] [address] * TSH (05/15/2018 9:26 AM EST) TSH 2.26 0.27 - 4.20 uIU/mL [facility] Blood 05/15/2018 9:26 AM EST 05/15/2018 9:30 AM EST us Nadia Rutherford MD LAB BLOOD ORDERABLES Fi nal Result Performing Organization Address [facility] Co de Phone Number [address] [address] documented in this encounter Visit Diagnoses Diagnosis Nonspecific abnormal finding- Primary Other nonspecific abnormal finding documented in this encounter Care Teams Computer Terminal Operator Relationship Specialty Start Date End Date Nadia Rutherford MD PCP - General Pediatrics 06/05/17 09/07/20 Malorie Crowley MD [address] [place] [address] PCP - General Pediatrics 01/07/21 10/04/22 Morenita Snider PA [address] [place] [address] PCP - General Physician Group Chief Operator 10/05/22 10/05/22 Pcp, Unknown PCP - General 10/06/22 Pcp, Unknown PCP - Pediatrics 09/07/20 Malorie Crowley MD [address] [place] [address] Pediatrics 10/05/22 documented as of this encounter Additional Source Comments The information contained in this document represents components of the legal health record. It is not the complete legal health record.[facility]
--- OUTSIDE RECORDS SUMMARY | 2025-03-12 19:23 | XMS_ITS | Encounter Summary ---
Author Organization [facility] Address [address] [facility] [address] [place] [address] Phone Care Team Providers Care Race Starter Name Role Phone Nadia Rutherford MD Primary Care Provider Malorie Crowley MD Primary Care Provider [phone] Morenita Snider Primary Care Provider Pcp, Unknown Primary Care Provider Unavailabl e Malorie Crowley MD Unavailable [phone] Pcp, Unknown Unavailable Unavailable Encounter Details Date Type Department Care Team (Latest Contact Info) Description 05/22/2018 Transcribe Orders [facility] Specimen Processing 30 [place] [address] Nadia Rutherford MD 27 [place] [address] Encounter for routine child health [...] EST) CHLAMYDIA TRACHOMATIS Not Detected Not Detected [facility] NEISERIA GONORRHOEAE Not Detected Not Detected [facility] SPECIMEN TYPE URINE [facility] Urine (Urine) 05/22/2018 5:1 8 PM EST 05/22/2018 5:22 PM EST Nadia Rutherford MD NON CULTURE MICROBIOLOG Y Final Result [facility] 30 [place] [address] documented in this encounter Visit Diagnoses Diagnosis Encounter for routine child health examination without abnormal findings- Primary documented in this encounter Care Teams Race Starter Relationship Specialty Start Date End Date Nadia Rutherford MD PCP - General Pediatrics 06/05/17 09/07/20 Malorie Crowley MD [address] [place] [address] PCP - General Pediatrics 01/07/21 10/04/22 Morenita Snider PA [address] [place] [address] PCP - General Physician Settlement Agent 10/05/22 10/05/22 Pcp, Unknown PCP - General 10/06/22 Pcp, Unknown PCP - Pediatrics 09/07/20 Malorie Crowley MD [address] [place] [address] Pediatrics 10/05/22 documented as of this encounter Additional Source Comments The information contained in this document represents components of the legal health record. It is not the complete legal health record.[facility]
--- OUTSIDE RECORDS SUMMARY | 2025-03-12 19:23 | XMS_ITS | Encounter Summary ---
Author Organization [employer] Address [address] [facility] 7 [place] [address] Care Team Providers Care Wooden Box Maker Name Role Phone Unavailable Primary Care [...]
--- OUTSIDE RECORDS SUMMARY | 2025-03-12 19:23 | XMS_ITS | Data Portability ---
Author Organization [place] [facility] Address [address] [place] [address] Care Team Providers Care Bleach Chlorinator Name Role Phone CLEM P[place]TMAN Primary Care Provider Assessment Encounter Date Assessment Date Assessment LastModified [...] Go To The Location Of Their Choice, [address] 01:21:12 CBC w/ auto diff 2024 025 ALYSON [facility] (Centralized Electronic Ordering - All Locations), Patient Can Go To The Location Of Their Choice, [address] 5 01:21:11 Referral None recorded . Procedures allergen immunoth erapy; multiple injectio ns (PROC) 2024 025 [email or web address] Not available 10:07:39 Surgeries None recorded . Imaging CT, sinuses, w/o contrast 2024 025 [email or web address] [facility], [address] [place] [address], [phone], 5 13:05:39 CT, maxillof acial, w/o contrast 2024 025 [email or web address] [facility], [address] [place] [address], [phone], 5 16:50:31 Medication Orders epinephr ine 0.3 mg/0.3 mL injectio n, auto-inj brenda 2024 [facility][id number], [address] [place] [address], [id number], 11:17:01 montel[place] ast 10 mg tablet 2024 025 [facility] #84387, [address] [place] [address], [id number], 5 11:15:48 azelasti ne 137 mcg (0.1 %) nasal spray 2024 025 [facility] #76303, [address] [place] [address], [id number], 5 14:12:04 fluticas one propiona te 50 mcg/actu ation nasal spray,delgado spension 2024 025 [facility] #25757, [address] [place] [address], [id number], 5 14:12:06 Patient TargetsNo targets recorded. Patient Instructions Encounter Date Encounter Id Patient Instructions Last Modified By Organization Details Last Modified Time 08/20/2024 [id number] 24-year-old female with allergic rhinitis, mild intermittent [...] /uL 3.4-10 .8 normal Not Available [facility] ([facility]) [address] [place], [address], 08/23/2024 01:21:11 08/21/19 25 08/21/2024 CBC WITH DIFFE RENTI AL/PL ATELE T RBC 4.97 x10e6 /uL 3.77-5 .28 normal Not Available [facility] ([facility]) [address] [place], [address], 08/23/2024 01:21:11 08/21/19 25 08/21/2024 CBC WITH DIFFE RENTI AL/PL ATELE T hemoglobin 13.8 g/dL 11.1-1 5.9 normal Not Available [facility] ([facility]) [address] [place], [address], 08/23/2024 01:21:11 08/21/19 25 08/21/2024 CBC WITH DIFFE RENTI AL/PL ATELE T hematocrit 43.3 % 34.0-4 6.6 normal Not Available [facility] ([facility]) [address] [place], [address], 08/23/2024 01:21:11 08/21/19 25 08/21/2024 CBC WITH DIFFE RENTI AL/PL ATELE T MCV 87 fL 79-97 normal Not Available [facility] ([facility]) [address] [facility], [place], [address], 08/23/2024 01:21:11 08/21/19 25 08/21/2024 CBC WITH DIFFE RENTI AL/PL ATELE T MCH 27.8 pg 26.6-3 3.0 normal Not Available [facility] ([facility]) [address] [facility], [place], [address], 08/23/2024 01:21:11 08/21/19 25 08/21/2024 CBC WITH DIFFE RENTI AL/PL ATELE T MCHC 31.9 g/dL 31.5-3 5.7 normal Not Available [facility] ([facility]) [address] [place], [address], 08/23/2024 01:21:11 08/21/19 25 08/21/2024 CBC WITH DIFFE RENTI AL/PL ATELE T RDW 12.0 % 11.7-1 5.4 Not Available [facility] ([facility]) [address] [place], [address], 08/23/2024 01:21:11 08/21/19 25 08/21/2024 CBC WITH DIFFE RENTI AL/PL ATELE T platelets 333 x10e3 /uL 150-45 0 normal Not Available [facility] ([facility]) [address] [place], [address], 08/23/2024 01:21:11 08/21/19 25 08/21/2024 CBC WITH DIFFE RENTI AL/PL ATELE T neutrophils 67 % not estab. normal Not Available [facility] ([facility]) [address] [facility], [place], [address], 08/23/2024 01:21:11 08/21/19 25 08/21/2024 CBC WITH DIFFE RENTI AL/PL ATELE T lymphs 23 % not estab. normal Not Available [facility] ([facility]) [address] [facility], [place], [address], 08/23/2024 01:21:11 08/21/19 25 08/21/2024 CBC WITH DIFFE RENTI AL/PL ATELE T monocytes 6 % not estab. normal Not Available [facility] ([facility]) [address] [facility], [place], [address], 08/23/2024 01:21:11 08/21/19 25 08/21/2024 CBC WITH DIFFE RENTI AL/PL ATELE T eos 3 % not estab. normal Not Available [facility] ([facility]) [address] [facility], [place], [address], 08/23/2024 01:21:11 08/21/19 25 08/21/2024 CBC WITH DIFFE RENTI AL/PL ATELE T basos 1 % not estab. normal Not Available [facility] ([facility]) [address] [facility], [place], [address], 08/23/2024 01:21:11 08/21/19 25 08/21/2024 CBC WITH DIFFE RENTI AL/PL ATELE T immature cells BIZTALK DEVELOPER Not Available [facility] ([facility]) [address] [facility], [place], [address], 08/23/2024 01:21:11 08/21/19 25 08/21/2024 CBC WITH DIFFE RENTI AL/PL ATELE T neutrophils (absolute) 5.9 x10e3 /uL 1.4-7. 0 normal Not Available [facility] ([facility]) [address] [place], [address], 08/23/2024 01:21:11 08/21/19 25 08/21/2024 CBC WITH DIFFE RENTI AL/PL ATELE T lymphs (absolute) 2.0 x10e3 /uL 0.7-3. 1 normal Not Available [facility] ([facility]) [address] [facility], [place], [address], 08/23/2024 01:21:11 08/21/19 25 08/21/2024 CBC WITH DIFFE RENTI AL/PL ATELE T monocytes(ab solute) 0.6 x10e3 /uL 0.1-0. 9 normal Not Available [facility] ([facility]) [address] [place], [address], 08/23/2024 01:21:11 08/21/19 25 08/21/2024 CBC WITH DIFFE RENTI AL/PL ATELE T eos (absolute) 0.2 x10e3 /uL 0.0-0. 4 normal Not Available [facility] ([facility]) [address] [place], [address], 08/23/2024 01:21:11 08/21/19 25 08/21/2024 CBC WITH DIFFE RENTI AL/PL ATELE T baso (absolute) 0.0 x10e3 /uL 0.0-0. 2 normal Not Available [facility] ([facility]) [address] [place], [address], 08/23/2024 01:21:11 08/21/19 25 08/21/2024 CBC WITH DIFFE RENTI AL/PL ATELE T immature granulocytes 0 % not estab. Not Available [facility] ([facility]) [address] [place], [address], 08/23/2024 01:21:11 08/21/19 25 08/21/2024 CBC WITH DIFFE RENTI AL/PL ATELE T immature grans (abs) 0.0 x10e3 /uL 0.0-0. 1 Not Available [facility] ([facility]) [address] [facility], [place], [address], 08/23/2024 01:21:11 08/21/19 25 08/21/2024 CBC WITH DIFFE RENTI AL/PL ATELE T NRBC BIZTALK DEVELOPER Not Available [facility] ([facility]) [address] [facility], [place], [address], 08/23/2024 01:21:11 08/21/19 25 08/21/2024 CBC WITH DIFFE RENTI AL/PL ATELE T hematology comments: BIZTALK DEVELOPER Not Available [facility] ([facility]) [address] [facility], [place], [address], 08/23/2024 01:21:11 08/21/19 25 08/23/2024 IMMUN OGLOB ULIN E, TOTAL immunoglobul in E, total 349 IU/mL 6-495 Not Available [facility] ([facility]) [address] [facility], [place], [address], 08/23/2024 01:21:12 10/04/[address], sinus es, w/o contr ast No observ ation record ed. [email or web address] [address], [address], 10/03/2024 11:17:52 10/23/19 25 10/03/2024 CT, sinus es, w/o contr ast No observ ation record ed. [email or web address] [address], [address], 10/22/2024 14:24:12 Result Notes None recorded. Problems Name Problem SNOMED Code Status Onset Date Resolution Date Notes Provider Name and Address Organization Details Recorded Time Hypertrophy of nasal turbinates 05012143 Active 2024 SALLY MOREIRA MD [address] [place] [address] [place], [address], [facility] [employer] 13:48:15 Chronic sinusitis 84812140 Active 2024 SALLY MOREIRA MD [address] [address], [place], [address], [facility] - [facility] [employer] 13:48:18 Allergic rhinitis 62597392 Active 2024 SALLY MOREIRA MD [address] [facility] [address] [facility], [facility], [address], [facility] - [facility] [employer] 13:48:20 Polyp of nasal cavity 637755474 Active 2024 SALLY MOREIRA MD [address] [facility], [address] [facility], [place], [address], [facility] - [facility] [employer] 14:07:39 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 SALLY MOREIRA MD [address] [address], [place], [address], [facility] - [facility] [employer] 14:07:39 Seasonal allergic rhinitis 694034748 Active 2024 SALLY MOREIRA MD [address] [address], [facility] [place], [address], [facility] - [facility] [employer] 14:10:32 Mild intermittent asthma 198839862 Active 2024 SALLY MOREIRA MD [address] [facility] [address] [facility], [facility] [place], [address], [facility] - [facility] [employer] 11:15:25 Problem Notes None recorded. Medical Equipment [...] Updated DateTime 08/20/2024 167.64 cm 37.1 kg/m2 377782.25 g Taylor Bishop [place] - [facility] 08/20/2024 13:22:29 Social History Question Answer Notes LastModified by Organizat ion Details LastModified Time Tobacco Smoking Status Never Smoker SALLY CAPELLAN MD [address] [place] [address], [phone], [place] - [facility] 10/03/2024 11:11:58 What Type Of Music Therapy Teacher Do You Use? None Information not available [...] Emphysema N Migraines N Thyroid Problems N Glaucoma N Depression N COPD N Developmental Delay N Nasal or Sinus Problems Y Anemia N Immune System Disorder N Anesthesia Complications N Heart Attack ([place]) N Other Skin Condition N Diabetes N Rhinitis Y Bleeding Disorder N Food Allergy Y Arthritis N Hearing Loss N Hyperlipidemia N Cancer N Stroke N Dementia N Nasal polyps Y Asthma Y High Cholesterol N Sleep Disorder N GERD/Reflux N Liver Disease N Headaches Y Fibromyalgia N Hypertension N Speech Delay N Kidney Disease N Gynecological HistoryNo gynecological history recorded. Obstetrics History GPAL:G 0 P 0 0 0 0 Past Encounters Encounter ID Performer Location Encounter Start Date Encounter Closed Date Diagnosis/Indication Diagnosis SNOMED-CT Code Diagnosis ICD10 Code Diagnosis IMO Codes Diagnosis Note [id number] SALLY HINOJOSA MD [facility] [address] [address] 08/20/2024 13:13:12 08/20/2024 14:13:48 Hypertrophy of nasal turbinates 97836110 J34.3 Chronic sinusitis 891029 00 J32.9 Allergic rhinitis 090771 04 J30.9 Polyp of nasal cavity 73 8845496 J33.0 Polypoid s inus degeneration 68472622 J33.1 [id number] SALLY HINOJOSA MD [facility] [address] [address] 10/03/2024 10:38:10 10/03/2024 13:05:39 Chronic sinusitis 73039872 J32.9 Hypertroph y of nasal turbinates 83536015 J34.3 Polypoid s inus degeneration 82069463 J33.1 Allergic rhinitis 538372 04 J30.9 We also discussed the role [...] an Epipen discussed. Mild inter mittent asthma 979158348 J45.20 5679067 Health Concerns Section Related Observation LastModified by Organization Detai ls LastModified Time None Recorded Concern Status LastModified by Organization Details LastModified Time None Recorded Advance Directives Directive None Recorded Payers Insurance Date Sequence Insurance Name Policy Number Policy Hernandez Covered Member ID Hernandez Member ID Guarantor Name 12/25/2024 1 [facility] [id number] [employer] [id number] Zaynab Cathy 08/20/2024 1 [facility] [employer] [id number] [facility] Notes Date Note Type Note Provider Name [...] had allergy testing last year at [facility]. Reports many positive reactions. They suggested fexofenadine [...] anti-inflammatory drugsSNOT=29Nose=8 5 SALLY CAPELLAN MD [address] [facility], [place], [address], [facility] - [facility] 08/20/2024 14:12:01 10/03/2024 text/html ROS as noted in the HPI Patient with significant history of allergic rhinitis, reactive airway disease and nasal polyps. No history of aspirin allergy. Feels better with consistent use of fluticasone and azelastine but still has reduced sense of smell. Laboratory studies were normal. Prior skin testing showed significant pollen allergy. SALLY CAPELLAN MD [address] [facility], [place], [address], [facility] 10/03/2024 11:19:25 OBGyn Episode No OBEpisode recorded.
--- OUTSIDE RECORDS SUMMARY | 2025-03-12 19:23 | XMS_ITS | Clinical Summary ---
Author Organization [employer] Address [address] [place] [address] 7 [place] [address] Care Team Providers Care Medical Anthropology Director Name Role Phone Unavailable Primary Care Provider [...] Most Recently Relevant to Health Maintenance Insurance [facility] MEDICAID STAND ADULT [facility]
--- OUTSIDE RECORDS SUMMARY | 2025-03-12 19:23 | XMS_ITS | Clinical Summary ---
Author Organization [facility] Address [address] [place] [address] Phone Care Team Providers Care [employer] Court [employer] Law Clerk Name Role Phone Pcp, Unknown Primary Care Provider Malorie Ash MD Unavailable [phone] Pcp, Unknown Unavailable Unavailable Allergies No [...] SEE NARRATIVE - 10/11/2022 11:43 AM EDT [address] [address] Upsetter Setter Up: Ebony Parrish MD SOURCING COORDINATOR Cytology Report FINAL DIAGNOSIS A. PAP SMEAR [...] : 2000 (Age: 22) Sex: F Institution: [facility] Location: [facility] Date of Collection: 10/05/2022 Date of Reported: 10/11/2022 11:43 Results to: JEANNE Albarran us Unknown Unknown CYTOLOGY ORDERABLES Final Res ult SEE NARRATIVE * Chlamydia Trachomatis and Neisseria Gonorrhoeae Nucleic Acid Detection (12/11/2019 11:46 AM EDT) CHLAMYDIA TRACHOMATIS Not Detected Not Detected [facility] NEISERIA GONORRHOEAE Not Detected Not Detected [facility] SPECIMEN TYPE URINE [facility] Urine (Urine) 12/11/2019 11: 46 AM EDT 12/11/2019 11:47 AM EDT us Nadia Rutherford MD NON CULTURE MICROBIOLOG Y Final Result [address] [address] from Last 3 Months or Most Recently Relevant to Health Maintenance Insurance [facility] ACO [facility] ACO [facility] Member Subscriber Plan / Payer (Ef fective 2022-Present) Name:Dion Morgan Relation to Subscriber:Self Name:Dion Morgan Payer ID:[id number] (NAIC) Group ID:Not on file Type:Medicaid Address: [employer] CLAIMS [address] JOAN CARO MD [facility] ACO Member Subscriber Plan / Payer (Ef fective 2022-Present) Name:Dion Morgan Relation to Subscriber:Self Name:Dion Morgan Payer ID:[id number] (NAIC) Group ID:Not on file Type:Medicaid Address: [employer] CLAIMS [address] JOAN CARO MD [facility] ACO Member Subscriber Plan / Payer (Ef fective 2022-Present) Name:Dion Morgan Relation to Subscriber:Self Name:Dion Morgan Payer ID:[id number] (NAIC) Group ID:Not on file Type:Medicaid Address: [employer] CLAIMS [address] JOAN CARO MD [facility] ACO Member Subscriber Plan / Payer (Ef fective 2022-Present) Name:Dion Morgan Relation to Subscriber:Self Name:Dion Morgan Payer ID:[id number] (NAIC) Group ID:Not on file Type:Medicaid Address: [employer] CLAIMS [address] JOAN CARO MD Care Teams [employer] Law Clerk Relationship Specialty Start Date End Date Pcp, Unknown PCP - General 10/06/22 Pcp, Unknown PCP - Pediatrics 09/07/20 Malorie Crowley MD [address] [place] [address] Pediatrics 10/05/22 Additional Source Comments The information contained in this document represents components of the legal health record. It is not the complete legal health record.[facility]
--- OUTSIDE RECORDS SUMMARY | 2025-03-12 19:23 | XMS_ITS | Encounter Summary ---
Author Organization [facility] Address [address] [place] [address] Phone Care Team Providers Care Tracer Clerk Name Role Phone Nadia Rutherford MD Primary Care Provider Malorie Crowley MD Primary Care Provider Morenita Snider Primary Care Provider Pcp, Unknown Primary Care Provider Unavailabl e Malorie Crowley MD Unavailable [phone] Pcp, Unknown Unavailable Unavailable Encounter Details Date Type Department Care Team (Latest Contact Info) Description 12/11/2019 Transcribe Orders [facility] Specimen Processing [address] [place] [address] Nadia Rutherford MD [address] [place] [address] OCP (oral contraceptive pills) initiation [...] EDT) CHLAMYDIA TRACHOMATIS Not Detected Not Detected [facility] NEISERIA GONORRHOEAE Not Detected Not Detected [facility] SPECIMEN TYPE URINE [facility] Urine (Urine) 12/11/2019 11: 46 AM EDT 12/11/2019 11:47 AM EDT Nadia Rutherford MD NON CULTURE MICROBIOLOG Y Final Result [facility] [address] [place] [address] documented in this encounter Visit Diagnoses Diagnosis OCP (oral contraceptive pills) initiation- Primary General counseling for prescription of oral contraceptives documented in this encounter Care Teams Tracer Clerk Relationship Specialty Start Date End Date Nadia Rutherford MD PCP - General Pediatrics 06/05/17 09/07/20 Malorie Crowley MD [address] [place] [address] PCP - General Pediatrics 01/07/21 10/04/22 Morenita Snider PA [address] [place] [phone] PCP - General Physician Fireman Helper 10/05/22 10/05/22 Pcp, Unknown PCP - General 10/06/22 Pcp, Unknown PCP - Pediatrics 09/07/20 Malorie Crowley MD [address] [place] [phone] Pediatrics 10/05/22 documented as of this encounter Additional Source Comments The information contained in this document represents components of the legal health record. It is not the complete legal health record.[facility]
== END ==
LOC: HO.SL 15:57
PROVIDERS: PCP Physician Assistant; Visit Provider Physician Assistant
DX: R06.81 Apnea, not elsewhere classified (principal); R06.83 Snoring; R40.0 Somnolence
CPT/HCPCS: 95806

== ENCOUNTER → 2025-03-12 16:02 | Outpatient (BNV) | payer BC, SELFPAY | PROVIDERS: PCP Physician Assistant; Visit Provider Internal Medicine | DX: R06.83 Snoring (principal) | CPT/HCPCS: 95806 ==

== ENCOUNTER 2025-04-08 11:08 | Outpatient (REF) | payer OTHER, SELFPAY ==
[2025-04-08 14:13] LABS: MANUAL DIFF FLAG NO
[2025-04-08 14:17] LABS: Hematocrit 42.3 % (37.0-47.0); Hemoglobin 13.3 g/dl (12.0-16.0); Imm Gran Abs Auto 0.01 X10*3/uL (0.00-0.03); Imm Gran Pct Auto 0.2 % (0.0-0.4); Lymphocytes Absolute Auto 1.8 X10*3/uL (1.2-4.9); Mean Corpuscular HGB Conc 31.4 g/dl (31.0-35.0); Mean Corpuscular Hemoglobin 28.1 pg (27.0-33.0); Mean Corpuscular Volume 89.2 fL (80.0-98.0); NRBC Abs Auto 0.000 X10*3/uL (0.0-0.012); NRBC Pct Auto 0.0 /100WBC (0.0-0.2); Platelet Count 262 X10*3/uL (160-400); Red Blood Count 4.74 X10*6/uL (4.20-5.50); White Blood Count 5.6 X10*3/uL (4.8-10.8)
[2025-04-08 15:53] LABS: Alanine Aminotransferase 22 U/L (0-31); Albumin Level 4.8 g/dL (3.5-5.0); Alkaline Phosphatase 66 U/L (39-117); Anion Gap 10 (12-20); Aspartate Amino Transferase 25 U/L (5-31); Blood Urea Nitrogen 17 mg/dL (9-16); Calcium 9.3 mg/dL (8.4-10.2); Carbon Dioxide 26 mmol/L (22-29); Chloride 107 mmol/L (96-108); Estimated Glomerular Filt Rate > 60; Potassium 4.1 mmol/L (3.3-5.1); Sodium 139 mmol/L (135-145); Total Protein 7.3 g/dL (6.5-8.0)
== END 2025-04-08 11:09 | disposition home or self-care (01) ==
LOC: HO.WFDLDS 11:08
PROVIDERS: PCP Physician Assistant; Visit Provider Physician Assistant
DX: R59.0 Localized enlarged lymph nodes (principal); R53.83 Other fatigue; M79.641 Pain in right hand; M79.642 Pain in left hand; M35.7 Hypermobility syndrome; K80.20 Calculus of gallbladder without cholecystitis without obstruction; R14.0 Abdominal distension (gaseous)
CPT/HCPCS: 36415; 80053; 84443; 85025

== ENCOUNTER 2025-04-08 11:08 | Outpatient (AMB) | payer OTHER, SELFPAY ==
[2025-04-08 11:18] VITALS: BP 137/63; PULSE 75; RESP 14; TEMP 36.7; O2SAT 98; BMI 37.6
--- NOTE | 2025-04-08 11:18 | A.OFFPC_ITS ---
Vital Signs 04/08/25 11:18 Height 5 ft 6 in Weight 233 lb BMI 37.6 BP 137/63 Blood Pressure Location Rt brachial Position Sitting Respiration 14 Pulse 75 Pulse Source Pulse Oximeter Temp 98.1 F Temp Source Oral Pulse Oximetry (%) 98 Oxygen Delivery Method Room Air Intake Visit Reasons: abdominal pain Intake Note: Abdominal pain follow up [facility] Demonstration Agent Required: No Allergies montelukast Allergy (Intermediate, Verified 04/08/25 11:19) aggitation Medication List - Last Reconciled 04/08/25 by Nancy Osborn PA-C albuterol sulfate 90 mcg/actuation 2 puffs inhalation Q4H PRN azelastine 2 sprays intranasal BID cetirizine (Zyrtec) 10 mg PO DAILY fluticasone propionate 50 mcg/actuation 1 spray intranasal DAILY naproxen (EC-Naproxen) 500 mg PO Q12H PRN triamcinolone acetonide 0.025% 1 appl topical BID 2 weeks Tobacco use date assessed: 04/08/25 Dental Screening Dental Screen Date: 01/01/25 HPI abdominal pain HPI Details Pt is a 24 y/o female who presents today for a follow up. States that her only significant past medical history has been environmental allergies, chronic sinusitis and nasal polyps. HEENT: She has a history of chronic sinusitis and nasal polyps. Currently feels that the Zyrtec is controlling the symptoms of postnasal drip. She states that she is a bit worried because she got her ultrasound done and it looks like her lymph nodes enlarged from a previous ultrasound that she had. Her father has a history of lymphoma and in 2020. -she is scheduled with General surgery -she is concerned regarding the lymph no carlos because they are still present on the left side and it does bother her. 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 She just completed metronidazole. GI: She does get a lot of abdominal pain and bloating sometimes related to foods. Had a recent ultrasound which was consistent with gallstones. She is scheduled with General surgery next week. Symptoms are a bit better since I last saw her. She is limiting fatty foods. Denies fever, chills, weight loss, night sweats, nausea, vomiting or diarrhea. 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 Current occupational exposures/hazards: No Cognitive needs: No Hearing needs: No Vision needs: No Questionnaire Thrive Questionnaire Date Thrive assessed: 12/25/24 I am a: Patient What is your living situation today?: I have a steady place to live Within the past 12 months, did the food you bought not last and you didn't have the money to get more?: Never true Within the past 12 months, did you worry whether your food would run out before you got money to buy more?: Never true Do you have trouble paying for medicines?: No Do you have trouble getting transportation to medical appointments?: No Do you have trouble paying your heating and electricity bill?: No Do you have trouble taking care of your child, family member or friend?: No Do you have trouble with day-to-day activities such as bathing, preparing meals, shopping, managing finances, etc.?: No Are you currently unemployed and looking for a job?: No Are you interested in more education?: No Please select the resources that you would like help with: None Currently or been in a relationship where the following occur: No concerns reported THRIVE Score: 0 AUDIT C Alcohol Use Questionnaire (AUDIT-C) 1. How often do you have a drink containing alcohol?: Never 3. How often do you have six or more drinks on one occasion?: Never Total Score: 0 ISAK-7 AMB Questionnaire ISAK-7 Date ISAK - 7 assessed: 01/01/25 Source: Developed by Drs. Heber Hansen, Idania Hoffmann, Car Valdes and colleagues, with an educational jefferson from [employer]. Physical exam (Primary Care) Vital Signs: Last Vital Signs Temp 98.1 F 11/19/25 11:18 Pulse 75 04/08/25 11:18 Resp 14 04/08/25 11:18 BP 137/63 04/08/25 11:18 Pulse Ox 98 04/08/25 11:18 Oxygen Delivery Method Room Air 04/08/25 11:18 BMI result Body Mass Index 37.6 Tobacco/Smoking Status: Tobacco use Status Tobacco use date assessed 04/08/25 04/08/25 11:22 Patient Tobacco Use Status Never used Tobacco 04/08/25 11:22 e-Cigarette/Vaping Use Never Used 04/08/25 11:22 Thrive Assessment: Date of Thrive Assessment Date Thrive assessed 12/25/24 04/08/25 11:22 Currently or been in a relationship where the following occur: No concerns reported Const Orientation/consciousness: patient oriented x3 HENMT Ears: hearing grossly normal bilaterally Neck Other: I am able to palpate a lymph node in the left cervical chain. Thyroid: Thyroid normal Resp Auscultation: clear to auscultation bilaterally Cardio Rate: regular rate Rhythm: regular rhythm Heart sounds: S1 normal heart sound present and S2 normal heart sound present GI Inspection: Yes normal to inspection Palpation (GI): Soft to palpation and Other GI palpation findings present (nontender, no cva tenderness) Auscultation: normoactive bowel sounds Rectal Exam - Female: deferred Skin General skin exam: no rashes or lesions noted Neuro General: patient oriented x3, gait normal and no focal motor deficits Results Reviewed Results Reviewed: Laboratory Tests 01/01/25 01/29/25 09:57 07:42 WBC 6.2 RBC 4.64 Hgb 13.4 Hct 40.7 Plt Count 217 Sodium 138 Potassium 4.3 Chloride 106 Carbon Dioxide 25 Anion Gap 11 L BUN 18 H Creatinine 0.66 Estimated GFR > 60 Fasting Glucose 82 Hemoglobin A1c % 5.1 Magnesium 2.0 Iron 143 TIBC 256 % Saturation 56 H Unsat Iron Binding 113 Ferritin 34 Total Bilirubin 0.6 Direct Bilirubin 0.2 AST 31 ALT 20 Alkaline Phosphatase 61 Total Protein 7.2 Albumin 4.7 Triglycerides 58 Cholesterol 109 LDL Cholesterol, Calc 41 HDL Cholesterol 57 Vitamin B12 782 Folate 13.8 TSH 2.53 Random Cortisol 8.2 IgA 136 Rheumatoid Factor < 13.0 FERMIN Screen NEGATIVE Endomysial IgA Ab Negative Tiss Transglutamin IgG <1.0 Lyme Screen IgG & IgM <0.90 US Neck Comparison: None provided Findings: Targeted ultrasound imaging of the left neck demonstrates mildly enlarged 1.5 x 0.8 x 1.5 cm left neck lymph node with fatty echogenic hilum. 0.7 x 0.6 x 0.6 cm left neck lymph node is present with thickened cortex. Impression: 1. Mildly enlarged 1.5 cm left cervical lymph node containing a fatty echogenic hilum. 2. 0.7 cm left cervical lymph node with thickened cortex. IMPRESSION: 1. Cholelithiasis without sonographic findings of acute cholecystitis. 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 We did discuss possibility of Shannon-Danlos Referral to hand specialist (4) Joint hypermobility syndrome involving finger: Code(s): M35.7 - Hypermobility syndrome Category: Medical Plan: As above Orders: Orders CT soft tissue neck w IV con Today R53.83 - Other fatigue, R59.0 - Localized enlarged lymph nodes Referrals Hand Surgery Referral M35.7 - Hypermobility syndrome, M79.641 - Pain in right hand, M79.642 - Pain in left hand
--- OUTSIDE RECORDS SUMMARY | 2025-04-08 21:56 | XMS_ITS | Encounter Summary ---
Author Organization [facility] Address [address] [place] [address] Phone Care Team Providers Care Hospice Director Name Role Phone Nadia Rutherford MD Primary Care Provider Malorie Crowley MD Primary Care Provider [phone] Morenita Snider Primary Care Provider Pcp, Unknown Primary Care Provider Unavailabl e Malorie Crowley MD Unavailable [phone] Pcp, Unknown Unavailable Unavailable Encounter Details Date Type Department Care Team (Latest Contact Info) Description 12/11/2019 Transcribe Orders [facility] Specimen Processing [address] [place] [address] Nadia Rutherford MD [address] [place] [address] OCP (oral contraceptive pills) initiation [...] EDT) CHLAMYDIA TRACHOMATIS Not Detected Not Detected [facility] NEISERIA GONORRHOEAE Not Detected Not Detected [facility] SPECIMEN TYPE URINE [facility] Urine (Urine) 12/11/2019 11: 46 AM EDT 12/11/2019 11:47 AM EDT Nadia Rutherford MD LAB GENERAL ORDERABLES Final Result [facility] [address] [place] [address] documented in this encounter Visit Diagnoses Diagnosis OCP (oral contraceptive pills) initiation- Primary General counseling for prescription of oral contraceptives documented in this encounter Care Teams Hospice Director Relationship Specialty Start Date End Date Nadia Rutherford MD PCP - General Pediatrics 06/05/17 09/07/20 Malorie Crowley MD [address] [place] [phone] PCP - General Pediatrics 01/07/21 10/04/22 Morenita Snider PA [address] [place] [address] PCP - General Physician Freight Brake Operator 10/05/22 10/05/22 Pcp, Unknown PCP - General 10/06/22 Pcp, Unknown PCP - Pediatrics 09/07/20 Malorie Crowley MD [address] [place] [address] Pediatrics 10/05/22 documented as of this encounter Additional Source Comments The information contained in this document represents components of the legal health record. It is not the complete legal health record.[facility]
--- OUTSIDE RECORDS SUMMARY | 2025-04-08 21:57 | XMS_ITS | Encounter Summary ---
Author Organization [employer] Address [address] 7 [place] [address] Care Team Providers Care Material Handler Floorperson Name Role Phone Unavailable Primary Care Provider [...]
--- OUTSIDE RECORDS SUMMARY | 2025-04-08 21:57 | XMS_ITS | Clinical Summary ---
Author Organization [facility] Address [address] [place] [address] Phone Care Team Providers Care Carbonation Tester Name Role Phone Pcp, Unknown Primary Care Provider Malorie Ash MD Unavailable [phone] Pcp, Unknown Unavailable Unavailable Allergies No [...] SEE NARRATIVE - 10/11/2022 11:43 AM EDT [address] [address] Machine Preservative Filler: Ebony Parrish MD ORACLE DRM CONSULTANT Cytology Report FINAL DIAGNOSIS A. PAP SMEAR [...] : 2000 (Age: 22) Sex: F Institution: [facility] Location: [facility] Date of Collection: 10/05/2022 Date of Reported: 10/11/2022 11:43 Results to: JEANNE Albarran us Unknown Unknown CYTOLOGY ORDERABLES Final Res ult SEE NARRATIVE * Chlamydia Trachomatis and Neisseria Gonorrhoeae Nucleic Acid Detection (12/11/2019 11:46 AM EDT) CHLAMYDIA TRACHOMATIS Not Detected Not Detected [facility] NEISERIA GONORRHOEAE Not Detected Not Detected [facility] SPECIMEN TYPE URINE [facility] Urine (Urine) 12/11/2019 11: 46 AM EDT 12/11/2019 11:47 AM EDT us Nadia Rutherford MD LAB GENERAL ORDERABLES Final Result [address] [address] from Last 3 Months or Most Recently Relevant to Health Maintenance Insurance [facility] Member Subscriber Plan / Payer (Ef fective 2022-Present) Name:Dion Morgan Relation to Subscriber:Self Name:Dion Morgan Payer ID:[id number] (NAIC) Group ID:Not on file Type:Medicaid Address: [employer] CLAIMS [address] JOAN CARO MD [facility] ACO Member Subscriber Plan / Payer (Ef fective 2022-Present) Name:Dion Morgan Relation to Subscriber:Self Name:Dion Morgan Payer ID:[id number] (NAIC) Group ID:Not on file Type:Medicaid Address: [employer] CLAIMS [address] JOAN CARO MD [facility] A[facility] Member Subscriber Plan / Payer (Ef fective 2022-Present) Name:Dion Morgan Relation to Subscriber:Self Name:Dion Morgan Payer ID:[id number] (NAIC) Group ID:Not on file Type:Medicaid Address: [employer] CLAIMS [address] JOAN CARO MD [facility] A[facility] Member Subscriber Plan / Payer (Ef fective 2022-Present) Name:Dion Morgan Relation to Subscriber:Self Name:Dion Morgan Payer ID:[id number] (NAIC) Group ID:Not on file Type:Medicaid Address: [employer] CLAIMS [address] JOAN CARO MD Care Teams Carbonation Tester Relationship Specialty Start Date End Date Pcp, Unknown PCP - General 10/06/22 Pcp, Unknown PCP - Pediatrics 09/07/20 Malorie Crowley MD [address] [place] [address] Pediatrics 10/05/22 Additional Source Comments The information contained in this document represents components of the legal health record. It is not the complete legal health record.[facility]
--- OUTSIDE RECORDS SUMMARY | 2025-04-08 21:57 | XMS_ITS | Encounter Summary ---
Author Organization [employer] Address [address] [facility] 7 [place] [address] Care Team Providers Care Crime Laboratory Analyst Name Role Phone Unavailable Primary Care [...]
--- OUTSIDE RECORDS SUMMARY | 2025-04-08 21:57 | XMS_ITS | Clinical Summary ---
Author Organization [employer] Address [address] [place] [address] 7 [place] [address] Care Team Providers Care Rubber Curer Name Role Phone Unavailable Primary Care Provider [...] to 49) Years (1 of 1 - PPSV23, PCV20, or PCV21) 08/10/2007 11/04/2002, 02/11/2002, 2001, Additional history exists [...] 01/11/2021, Additional history exists COVID-19 Vaccine ( season) 2025 Influenza Vaccine (#1) 2025 03/02/2015 [...] Most Recently Relevant to Health Maintenance Insurance [facility] MEDICAID STAND ADULT [facility]
--- OUTSIDE RECORDS SUMMARY | 2025-04-08 21:57 | XMS_ITS | Encounter Summary ---
Author Organization [employer] Address [address] 7 [place] [address] Care Team Providers Care Farmer Vegetable Name Role Phone Unavailable Primary Care Provider [...]
--- OUTSIDE RECORDS SUMMARY | 2025-04-08 21:57 | XMS_ITS | Data Portability ---
Author Organization [place] - [facility], Allergy Address [address] [place] [address] Care Team Providers Care Sane Nurse Name Role Phone CLEM PITTMAN Primary Care Provider [phone] Assessment Encounter Date Assessment Date Assessment LastModified [...] Go To The Location Of Their Choice, [address] 01:21:12 CBC w/ auto diff 2024 025 ALYSON [facility] (Centralized Electronic Ordering - All Locations), Patient Can Go To The Location Of Their Choice, [address] 5 01:21:11 Referral None recorded . Procedures allergen immunoth erapy; multiple injectio ns (PROC) 2024 025 [email or web address] Not available 10:07:39 Surgeries None recorded . Imaging CT, sinuses, w/o contrast 2024 025 [email or web address] [facility], [address] [place] [address], [id number], 5 13:05:39 CT, maxillof acial, w/o contrast 2024 025 [email or web address] [facility], [address] [place] [address], [phone], 5 16:50:31 Medication Orders epinephr ine 0.3 mg/0.3 mL injectio n, auto-inj brenda 2024 [id number], [address] [place] [address], [id number], 11:17:01 monteluk ast 10 mg tablet 2024 025 [facility] #[id number], [address] [place] [address], [id number], 5 11:15:48 azelasti ne 137 mcg (0.1 %) nasal spray 2024 025 [facility] #84798, [address] [place] [address], [id number], 5 14:12:04 fluticas one propiona te 50 mcg/actu ation nasal spray,delgado spension 2024 025 [facility] #59215, [address] [place] [address], [id number], 5 14:12:06 Patient TargetsNo targets recorded. Patient Instructions Encounter Date Encounter Id Patient Instructions Last Modified By Organization Details Last Modified Time 08/20/2024 [id number] 24-year-old female with allergic rhinitis, mild intermittent [...] .8 normal Not Available [facility] ([facility]) [address] [place], [address], 08/23/2024 01:21:11 08/21/19 25 08/21/2024 CBC WITH DIFFE RENTI AL/PL ATELE T RBC 4.97 x10e6 /uL 3.77-5 .28 normal Not Available [facility] ([facility]) [address] [place], [address], 08/23/2024 01:21:11 08/21/19 25 08/21/2024 CBC WITH DIFFE RENTI AL/PL ATELE T hemoglobin 13.8 g/dL 11.1-1 5.9 normal Not Available [facility] ([facility]) [address] [place], [address], 08/23/2024 01:21:11 08/21/19 25 08/21/2024 CBC WITH DIFFE RENTI AL/PL ATELE T hematocrit 43.3 % 34.0-4 6.6 normal Not Available [facility] ([facility]) [address] [place], [address], 08/23/2024 01:21:11 08/21/19 25 08/21/2024 CBC WITH DIFFE RENTI AL/PL ATELE T MCV 87 fL 79-97 normal Not Available [facility] ([facility]) [address] [facility], [place], [address], 08/23/2024 01:21:11 08/21/19 25 08/21/2024 CBC WITH DIFFE RENTI AL/PL ATELE T MCH 27.8 pg 26.6-3 3.0 normal Not Available [facility] ([facility]) [address] [facility], [place], [address], 08/23/2024 01:21:11 08/21/19 25 08/21/2024 CBC WITH DIFFE RENTI AL/PL ATELE T MCHC 31.9 g/dL 31.5-3 5.7 normal Not Available [facility] ([facility]) [address] [place], [address], 08/23/2024 01:21:11 08/21/19 25 08/21/2024 CBC WITH DIFFE RENTI AL/PL ATELE T RDW 12.0 % 11.7-1 5.4 Not Available [facility] ([facility]) [address] [place], [address], 08/23/2024 01:21:11 08/21/19 25 08/21/2024 CBC WITH DIFFE RENTI AL/PL ATELE T platelets 333 x10e3 /uL 150-45 0 normal Not Available [facility] ([facility]) [address] [place], [address], 08/23/2024 01:21:11 08/21/19 25 08/21/2024 CBC WITH DIFFE RENTI AL/PL ATELE T neutrophils 67 % not estab. normal Not Available [facility] ([facility]) [address] [facility], [place], [address], 08/23/2024 01:21:11 08/21/19 25 08/21/2024 CBC WITH DIFFE RENTI AL/PL ATELE T lymphs 23 % not estab. normal Not Available [facility] ([facility]) [address] [facility], [place], [address], 08/23/2024 01:21:11 08/21/19 25 08/21/2024 CBC WITH DIFFE RENTI AL/PL ATELE T monocytes 6 % not estab. normal Not Available [facility] ([facility]) [address] [facility], [place], [address], 08/23/2024 01:21:11 08/21/19 25 08/21/2024 CBC WITH DIFFE RENTI AL/PL ATELE T eos 3 % not estab. normal Not Available [facility] ([facility]) [address] [facility], [place], [address], 08/23/2024 01:21:11 08/21/19 25 08/21/2024 CBC WITH DIFFE RENTI AL/PL ATELE T basos 1 % not estab. normal Not Available [facility] ([facility]) [address] [facility], [place], [address], 08/23/2024 01:21:11 08/21/19 25 08/21/2024 CBC WITH DIFFE RENTI AL/PL ATELE T immature cells PATIENT SCHEDULER Not Available [facility] ([facility]) [address] [facility], [place], [address], 08/23/2024 01:21:11 08/21/19 25 08/21/2024 CBC WITH DIFFE RENTI AL/PL ATELE T neutrophils (absolute) 5.9 x10e3 /uL 1.4-7. 0 normal Not Available [facility] ([facility]) [address] [place], [address], 08/23/2024 01:21:11 08/21/19 25 08/21/2024 CBC WITH DIFFE RENTI AL/PL ATELE T lymphs (absolute) 2.0 x10e3 /uL 0.7-3. 1 normal Not Available [facility] ([facility]) [address] [facility], [place], [address], 08/23/2024 01:21:11 08/21/19 25 08/21/2024 CBC WITH DIFFE RENTI AL/PL ATELE T monocytes(ab solute) 0.6 x10e3 /uL 0.1-0. 9 normal Not Available [facility] ([facility]) [address] [place], [address], 08/23/2024 01:21:11 08/21/19 25 08/21/2024 CBC WITH DIFFE RENTI AL/PL ATELE T eos (absolute) 0.2 x10e3 /uL 0.0-0. 4 normal Not Available [facility] ([facility]) [address] [place], [address], 08/23/2024 01:21:11 08/21/19 25 08/21/2024 CBC WITH DIFFE RENTI AL/PL ATELE T baso (absolute) 0.0 x10e3 /uL 0.0-0. 2 normal Not Available [facility] ([facility]) [address] [place], [address], 08/23/2024 01:21:11 08/21/19 25 08/21/2024 CBC WITH DIFFE RENTI AL/PL ATELE T immature granulocytes 0 % not estab. Not Available [facility] ([facility]) [address] [place], [address], 08/23/2024 01:21:11 08/21/19 25 08/21/2024 CBC WITH DIFFE RENTI AL/PL ATELE T immature grans (abs) 0.0 x10e3 /uL 0.0-0. 1 Not Available [facility] ([facility]) [address] [facility], [place], [address], 08/23/2024 01:21:11 08/21/19 25 08/21/2024 CBC WITH DIFFE RENTI AL/PL ATELE T NRBC PATIENT SCHEDULER Not Available [facility] ([facility]) [address] [facility], [place], [address], 08/23/2024 01:21:11 08/21/19 25 08/21/2024 CBC WITH DIFFE RENTI AL/PL ATELE T hematology comments: PATIENT SCHEDULER Not Available [facility] ([facility]) [address] [facility], [place], [address], 08/23/2024 01:21:11 08/21/19 25 08/23/2024 IMMUN OGLOB ULIN E, TOTAL immunoglobul in E, total 349 IU/mL 6-495 Not Available [facility] ([facility]) [address] [facility], [place], [address], 08/23/2024 01:21:12 10/04/[address], sinus es, w/o contr ast No observ ation record ed. [facility] [address], [address], 10/03/2024 11:17:52 10/23/19 25 10/03/2024 CT, sinus es, w/o contr ast No observ ation record ed. [facility] [address], [address], 10/22/2024 14:24:12 03/17/20 25 03/03/2025 US, neck, soft tissu e No observ ation record ed. ALYSON Not Available 2024 16:35:07 Result Notes None recorded. Problems Name Problem SNOMED Code Status Onset Date Resolution Date Notes Provider Name and Address Organization Details Recorded Time Hypertrophy of nasal turbinates 42519585 Active 2024 SALLY MOREIRA MD [address] [facility], [place], [address], [facility] - [facility] [place] 13:48:15 Chronic sinusitis 86926641 Active 2024 SALLY MOREIRA MD [address] [facility] E [facility], [place], [address], [facility] - [facility] [place] 13:48:18 Allergic rhinitis 76500508 Active 2024 SALLY MOREIRA MD [address] [facility] E [facility], [place], [address], [facility] - [facility] [place] 13:48:20 Polyp of nasal cavity 564609962 Active 2024 SALLY MOREIRA MD [address] [facility] E [facility], [place], [address], 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, [place] [place], [address], [facility] - [facility] [place] 14:07:39 Seasonal allergic rhinitis 290973795 Active 2024 SALLY MOREIRA MD [address] [facility] [address], [place], [address], [facility] - [facility] [place] 14:10:32 Mild intermittent asthma 745324683 Active 2024 SALLY MOREIRA MD [address] [facility], [address], [place], [address], [facility] - [facility] [place] 11:15:25 Localized enlarged lymph nodes 607683841 Active 2024 SALLY MOREIRA MD [address] [facility], [address], [place], [place], [address], [facility] - [facility] 16:21:34 Problem Notes None recorded. Medical Equipment None [...] Updated DateTime 08/20/2024 167.64 cm 37.1 kg/m2 514071.25 g Taylor Bishop [place] - [facility] 08/20/2024 13:22:29 Social History Question Answer Notes LastModified by Organizat ion Details LastModified Time Tobacco Smoking Status Never Smoker SALLY CAPELLAN MD [address] [place] [address], [place], [address], [facility] - [facility] 10/03/2024 11:11:58 What Type Of Bar Examiner Do You Use? None Information not available [...] Disorder N Anesthesia Complications N Heart Attack (ME) N Other Skin Condition N Diabetes N [...] ICD10 Code Diagnosis IMO Codes Diagnosis Note [id number] SALLY HINOJOSA MD [facility] [address] [address] 08/20/2024 13:13:12 08/20/2024 14:13:48 Hypertrophy of nasal turbinates 81311538 J34.3 Chronic sinusitis 576927 00 J32.9 Allergic rhinitis 374367 04 J30.9 Polyp of nasal cavity 73 1078557 J33.0 Polypoid s inus degeneration 91648985 J33.1 87566 SALLY HINOJOSA MD [facility] [address] [place] [address] 10/03/2024 10:38:10 10/03/2024 13:05:39 Chronic sinusitis 49716889 J32.9 Hypertroph y of nasal turbinates 45091201 J34.3 Polypoid s inus degeneration 14762229 J33.1 Allergic rhinitis 709164 04 J30.9 We also discussed the role [...] an Epipen discussed. Mild inter mittent asthma 732485971 J45.20 [id number] Health Concerns Section Related Observation LastModified by Organization Detai ls LastModified Time None Recorded Concern Status LastModified by Organization Details LastModified Time None Recorded Advance Directives Directive None Recorded Payers Insurance Date Sequence Insurance Name Policy Number Policy Hernandez Covered Member ID Hernandez Member ID Guarantor Name 12/25/2024 1 [facility] [id number] Alf Cathy [id number] Zaynabsusannah Bondome 08/20/2024 1 [facility] Alf Cathy [id number] Zaynab Cathy Notes Date Note Type Note Provider Name [...] She had allergy testing last year at [facility]. Reports many positive reactions. They suggested fexofenadine [...] nonsteroidal anti-inflammatory drugsSNOT=29Nose=8 5 SALLY CAPELLAN MD [address] [place] [address], [address], [facility] 08/20/2024 14:12:01 10/03/2024 text/html ROS as noted in the HPI Patient with significant history of allergic rhinitis, reactive airway disease and nasal polyps. No history of aspirin allergy. Feels better with consistent use of fluticasone and azelastine but still has reduced sense of smell. Laboratory studies were normal. Prior skin testing showed significant pollen allergy. SALLY CAPELLAN MD [address] [place] [address],[address], [address], [facility] 10/03/2024 11:19:25 OBGyn Episode No OBEpisode recorded.
--- OUTSIDE RECORDS SUMMARY | 2025-04-08 21:57 | XMS_ITS | Encounter Summary ---
Author Organization [facility] Address [address] [facility] [address] [place] [address] Phone Care Team Providers Care Warehouse Distribution Specialist Name Role Phone Nadia Rutherford MD Primary Care Provider Malorie Crowley MD Primary Care Provider Morenita Snider Primary Care Provider Pcp, Unknown Primary Care Provider Unavailabl e Malorie Crowley MD Unavailable [phone] Pcp, Unknown Unavailable Unavailable Encounter Details Date Type Department Care Team (Latest Contact Info) Description 05/22/2018 Transcribe Orders [facility] Specimen Processing [address] [place] [address] Nadia Rutherford MD [address] [place] [address] Encounter for routine child health [...] EST) CHLAMYDIA TRACHOMATIS Not Detected Not Detected [facility] NEISERIA GONORRHOEAE Not Detected Not Detected [facility] SPECIMEN TYPE URINE [facility] Urine (Urine) 05/22/2018 5:1 8 PM EST 05/22/2018 5:22 PM EST Nadia Rutherford MD LAB GENERAL ORDERABLES Final Result [facility] [address] [place] [address] documented in this encounter Visit Diagnoses Diagnosis Encounter for routine child health examination without abnormal findings- Primary documented in this encounter Care Teams Warehouse Distribution Specialist Relationship Specialty Start Date End Date Nadia Rutherford MD PCP - General Pediatrics 06/05/17 09/07/20 Malorie Crowley MD [address] [place] [address] PCP - General Pediatrics 01/07/21 10/04/22 Morenita Snider PA [address] [place] [address] PCP - General Physician Dinkey Press Operator 10/05/22 10/05/22 Pcp, Unknown PCP - General 10/06/22 Pcp, Unknown PCP - Pediatrics 09/07/20 Malorie Crowley MD [address] [place] [address] Pediatrics 10/05/22 documented as of this encounter Additional Source Comments The information contained in this document represents components of the legal health record. It is not the complete legal health record.[facility]
--- OUTSIDE RECORDS SUMMARY | 2025-04-08 21:57 | XMS_ITS | Encounter Summary ---
Author Organization [facility] Address [address] [facility] [address] [place] [address] Phone Care Team Providers Care Electrical Inspector Name Role Phone Nadia Rutherford MD Primary Care Provider Malorie Crowley MD Primary Care Provider Morenita Snider Primary Care Provider Pcp, Unknown Primary Care Provider Unavailabl e Malorie Crowley MD Unavailable [phone] Pcp, Unknown Unavailable Unavailable Encounter Details Date Type Department Care Team (Late st Contact Info) Description 06/05/2017 Transcribe Orders [facility] Specimen Processing [address] [place] [address] Nadia Rutherford MD [address] [place] [address] Cough (Primary Dx) Social History [...] PM EST) Influenza A Ag Negative Negative [facility] Influenza B Ag Positive(A) Negative [facility] Other (Nasal) 06/05/2017 5:4 0 PM EST 06/05/2017 5:46 PM EST Nadia Rutherford MD MICROBIOLOGY - GENERAL ORDERABLES Final Result [facility] [address] [place] [address] documented in this encounter Visit Diagnoses Diagnosis Cough- Primary documented in this encounter Care Teams Electrical Inspector Relationship Specialty Start Date End Date Nadia Rutherford MD PCP - General Pediatrics 06/05/17 09/07/20 Malorie Crowley MD [address] [place] [address] PCP - General Pediatrics 01/07/21 10/04/22 Morenita Snider PA [address] [place] [address] PCP - General Physician Basketballs And Footballs Reverser 10/05/22 10/05/22 Pcp, Unknown PCP - General 10/06/22 Pcp, Unknown PCP - Pediatrics 09/07/20 Malorie Crowley MD [address] [place] [address] Pediatrics 10/05/22 documented as of this encounter Additional Source Comments The information contained in this document represents components of the legal health record. It is not the complete legal health record.[facility]
--- OUTSIDE RECORDS SUMMARY | 2025-04-08 21:57 | XMS_ITS | Encounter Summary ---
Author Organization [facility] Address [address] [place] [address] Phone Care Team Providers Care Dinkey Engine Firer Name Role Phone Nadia Rutherford MD Primary Care Provider Malorie Crowley MD Primary Care Provider Morenita Snider Primary Care Provider Pcp, Unknown Primary Care Provider Unavailabl e Malorie Crowley MD Unavailable [phone] Pcp, Unknown Unavailable Unavailable Encounter Details Date Type Department Care Team (Latest Contact Info) Description 05/15/2018 Transcribe Orders [address] [address] Nadia Rutherford MD [address] [place] [address] Nonspecific abnormal finding (Primary Dx) Social [...] FREE T4 1.1 0.9 - 1.7 ng/dL [facility] Blood 05/15/2018 9:26 AM EST 05/15/2018 9:30 AM EST us Nadia Rutherford MD LAB BLOOD BKR ORDERABLE S Final Result Performing Organization Address City/[facility]/ZIP Co de Phone Number [address] [address] * TSH (05/15/2018 9:26 AM EST) TSH 2.26 0.27 - 4.20 uIU/mL [facility] Blood 05/15/2018 9:26 AM EST 05/15/2018 9:30 AM EST us Nadia Rutherford MD LAB BLOOD BKR ORDERABLE S Final Result Performing Organization Address [facility] Co de Phone Number [address] [address] documented in this encounter Visit Diagnoses Diagnosis Nonspecific abnormal finding- Primary Other nonspecific abnormal finding documented in this encounter Care Teams Dinkey Engine Firer Relationship Specialty Start Date End Date Nadia Rutherford MD PCP - General Pediatrics 06/05/17 09/07/20 Malorie Crowley MD [address] [place] [address] PCP - General Pediatrics 01/07/21 10/04/22 Morenita Snider PA [address] [place] [address] PCP - General Physician Ui Lead Developer 10/05/22 10/05/22 Pcp, Unknown PCP - General 10/06/22 Pcp, Unknown PCP - Pediatrics 09/07/20 Malorie Crowley MD [address] [place] [address] Pediatrics 10/05/22 documented as of this encounter Additional Source Comments The information contained in this document represents components of the legal health record. It is not the complete legal health record.[facility]
== END 2025-04-08 11:47 | disposition home or self-care (01) ==
LOC: HO.HMCFM 11:08
PROVIDERS: PCP Physician Assistant; Visit Provider Physician Assistant
DX: R59.0 Localized enlarged lymph nodes (principal); R53.83 Other fatigue; M79.641 Pain in right hand; M79.642 Pain in left hand; M35.7 Hypermobility syndrome

== ENCOUNTER 2025-04-14 15:17 | Outpatient (AMB) | payer OTHER, SELFPAY ==
--- NOTE | 2025-04-14 15:26 | MHC.OFFVIS ---
Vital Signs 04/14/25 15:28 Height 5 ft 6 in Weight 233 lb 11.04 oz BMI 37.7 Respiration 16 Intake Visit Reasons: Gallbladder problems Intake Note: Pt c/o: admits to abdominal pain RUQ for the past 6 months, had ultrasound done and was told is the gallbladder, denies n/v/d/c, no issues after meals Accompanied by: Self / Same As Patient Allergies montelukast Allergy (Intermediate, Verified 04/14/25 15:28) aggitation HPI Comments Details: The patient is a 24-year-old individual presenting with concerns regarding gallstones. Initially, the patient suspected polycystic ovary syndrome and visited the emergency room, where an ultrasound revealed no abnormalities. A subsequent comprehensive abdominal ultrasound identified the presence of gallstones. The patient reports experiencing intermittent abdominal pain, not consistently associated with food intake and not occurring at night. The pain occasionally occurs in the morning and resolves within an hour, with no associated nausea or vomiting, but chronic constipation is noted. Additionally, the patient reports enlarged lymph nodes in the neck, which have slightly increased in size over the past year. The lymph nodes are occasionally tender, and there is a family history of lymphoma. 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 Current occupational exposures/hazards: No Cognitive needs: No Hearing needs: No Vision needs: No Review of Systems Const All systems reviewed & are unremarkable except as noted in HPI and below GI Reports constipation, Denies loose stools, Denies nausea and Denies vomiting Delvis/Lymph Reports lymphadenopathy (Left neck) Physical Exam Vital Signs: Last Vital Signs Resp 16 04/14/25 15:28 BMI result Body Mass Index 37.7 Const General: cooperative and no acute distress Nutritional Appearance: well nourished Orientation/consciousness: patient oriented x3 Limitations: no limitations HEENT Head: Yes normocephalic and Yes atraumatic Ears: hearing grossly normal bilaterally Neck Other: Vaguely palpable submental and submandibular enlarged lymph nodes, mild tenderness to palpation Resp Effort & Inspection: normal respiratory effort, no audible wheezes, no cough and no respiratory distress Cardio Jugular venous distension: no JVD GI Inspection: Yes normal to inspection Palpation (GI): Soft to palpation, nontender, no guarding, not rigid and No hepatosplenomegaly present Percussion: Yes normal to percussion Auscultation: normal bowel sounds Rectal Exam - Female: deferred Skin Other: Warm, dry, no rash Neuro General: patient oriented x3 Extrem General: Yes no clubbing, cyanosis or edema Assessment & Plan Assessment & Plan (1) Left cervical lymphadenopathy: Code(s): R59.0 - Localized enlarged lymph nodes Category: Medical (2) Gallstones: Code(s): K80.20 - Calculus of gallbladder without cholecystitis without obstruction Category: Medical Plan 24-year-old female patient presenting with several episodes of abdominal pain times in the lower abdomen sometimes in the right upper quadrant. The symptoms were short-lived and resolve spontaneously. She denied associated symptoms of nausea, vomiting, fever or chills. Workup with ultrasound of the abdomen did reveal a gallstones within the gallbladder with no secondary evidence of cholecystitis. We discussed the option of laparoscopic cholecystectomy if her symptoms persist. I recommended she avoid/limit fatty/greasy foods in her diet. If the symptoms persist, I would recommend elective cholecystectomy. The enlarged lymph nodes have change and seemed to be enlarging based on the ultrasound findings. Because of her family history of lymphoma (father) I would recommend an ultrasound-guided core biopsy. Patient is in agreement and an order has been placed. She will return following the biopsy to review the pathology results and discuss treatment options. Orders: Orders US biopsy lymph node Today R59.0 - Localized enlarged lymph nodes Coding Level of Care Code New Pt Level 4 (25899) Diagnoses Left cervical lymphadenopathy R59.0 Gallstones K80.20
[2025-04-14 15:28] VITALS: RESP 16; BMI 37.7
--- OUTSIDE RECORDS SUMMARY | 2025-04-14 18:56 | XMS_ITS | Encounter Summary ---
Author Organization [facility] Address [address] [place] [phone] Phone Care Team Providers Care Mobile Application Architect Name Role Phone Nadia Rutherford MD Primary Care Provider Malorie Crowley MD Primary Care Provider Morenita Snider Primary Care Provider [phone] Pcp, Unknown Primary Care Provider Unavailabl e Malorie Crowley MD Unavailable [phone] Pcp, Unknown Unavailable Unavailable Encounter Details Date Type Department Care Team (Latest Contact Info) Description 05/15/2018 Transcribe Orders [address] [address] Nadia Rutherford MD [address] [place] [phone] Nonspecific abnormal finding (Primary Dx) Social [...] FREE T4 1.1 0.9 - 1.7 ng/dL [facility] Blood 05/15/2018 9:26 AM EST 05/15/2018 9:30 AM EST us Nadia Rutherford MD LAB BLOOD BKR ORDERABLE S Final Result Performing Organization Address City/[facility]/ZIP Co de Phone Number [address] [address] * TSH (05/15/2018 9:26 AM EST) TSH 2.26 0.27 - 4.20 uIU/mL [facility] Blood 05/15/2018 9:26 AM EST 05/15/2018 9:30 AM EST us Nadia Rutherford MD LAB BLOOD BKR ORDERABLE S Final Result Performing Organization Address [facility] Co de Phone Number [address] [address] documented in this encounter Visit Diagnoses Diagnosis Nonspecific abnormal finding- Primary Other nonspecific abnormal finding documented in this encounter Care Teams Mobile Application Architect Relationship Specialty Start Date End Date Nadia Rutherford MD PCP - General Pediatrics 06/05/17 09/07/20 Malorie Crowley MD [address] [place] [address] PCP - General Pediatrics 01/07/21 10/04/22 Morenita Snider PA [address] [place] [address] PCP - General Physician Automobile Mechanic Helper 10/05/22 10/05/22 Pcp, Unknown PCP - General 10/06/22 Pcp, Unknown PCP - Pediatrics 09/07/20 Malorie Crowley MD [address] [place] [address] Pediatrics 10/05/22 documented as of this encounter Additional Source Comments The information contained in this document represents components of the legal health record. It is not the complete legal health record.[facility]
--- OUTSIDE RECORDS SUMMARY | 2025-04-14 18:56 | XMS_ITS | Encounter Summary ---
Author Organization [facility] Address [address] [place] [phone] Phone Care Team Providers Care Hide And Skin Classer Name Role Phone Nadia Rutherford MD Primary Care Provider Malorie Crowley MD Primary Care Provider [phone] Morenita Snider Primary Care Provider Pcp, Unknown Primary Care Provider Unavailabl e Malorie Crowley MD Unavailable [phone] Pcp, Unknown Unavailable Unavailable Encounter Details Date Type Department Care Team (Late st Contact Info) Description 06/05/2017 Transcribe Orders [facility] Specimen Processing [address] [place] [address] Nadia Rutherford MD [address] [place] [phone] Cough (Primary Dx) Social History [...] PM EST) Influenza A Ag Negative Negative [facility] Influenza B Ag Positive(A) Negative [facility] Other (Nasal) 06/05/2017 5:4 0 PM EST 06/05/2017 5:46 PM EST Nadia Rutherford MD MICROBIOLOGY - GENERAL ORDERABLES Final Result [facility] [address] [place] [address] documented in this encounter Visit Diagnoses Diagnosis Cough- Primary documented in this encounter Care Teams Hide And Skin Classer Relationship Specialty Start Date End Date Nadia Rutherford MD PCP - General Pediatrics 06/05/17 09/07/20 Malorie Crowley MD [address] [place] [address] PCP - General Pediatrics 01/07/21 10/04/22 Morenita Snider PA [address] [place] [address] PCP - General Physician Scrap Crane Operator 10/05/22 10/05/22 Pcp, Unknown PCP - General 10/06/22 Pcp, Unknown PCP - Pediatrics 09/07/20 Malorie Crowley MD [address] [place] [address] Pediatrics 10/05/22 documented as of this encounter Additional Source Comments The information contained in this document represents components of the legal health record. It is not the complete legal health record.[facility]
--- OUTSIDE RECORDS SUMMARY | 2025-04-14 18:56 | XMS_ITS | Encounter Summary ---
Author Organization [facility] Address [address] [place] [address] Phone Care Team Providers Care Book Reviewer Name Role Phone Nadia Rutherford MD Primary Care Provider Malorie Crowley MD Primary Care Provider Morenita Snider Primary Care Provider Pcp, Unknown Primary Care Provider Unavailabl e Malorie Crowley MD Unavailable [phone] Pcp, Unknown Unavailable Unavailable Encounter Details Date Type Department Care Team (Latest Contact Info) Description 12/11/2019 Transcribe Orders [facility] Specimen Processing [address] [place] [address] Nadia Rutherford MD [address] [place] [address] OCP (oral contraceptive pills) initiation [...] EDT) CHLAMYDIA TRACHOMATIS Not Detected Not Detected [facility] NEISERIA GONORRHOEAE Not Detected Not Detected [facility] SPECIMEN TYPE URINE [facility] Urine (Urine) 12/11/2019 11: 46 AM EDT 12/11/2019 11:47 AM EDT Nadia Rutherford MD LAB GENERAL ORDERABLES Final Result [facility] [address] [place] [address] documented in this encounter Visit Diagnoses Diagnosis OCP (oral contraceptive pills) initiation- Primary General counseling for prescription of oral contraceptives documented in this encounter Care Teams Book Reviewer Relationship Specialty Start Date End Date Nadia Rutherford MD PCP - General Pediatrics 06/05/17 09/07/20 Malorie Crowley MD [address] [place] [address] PCP - General Pediatrics 01/07/21 10/04/22 Morenita Snider PA [address] [place] [address] PCP - General Physician Cuff Presser 10/05/22 10/05/22 Pcp, Unknown PCP - General 10/06/22 Pcp, Unknown PCP - Pediatrics 09/07/20 Malorie Crowley MD [address] [place] [address] Pediatrics 10/05/22 documented as of this encounter Additional Source Comments The information contained in this document represents components of the legal health record. It is not the complete legal health record.[facility]
--- OUTSIDE RECORDS SUMMARY | 2025-04-14 18:56 | XMS_ITS | Clinical Summary ---
Author Organization [facility] Address [address] [place] [address] Phone Care Team Providers Care Tc Operator Name Role Phone Pcp, Unknown Primary Care Provider Malorie Ash MD Unavailable Pcp, Unknown Unavailable Unavailable Allergies No known [...] SEE NARRATIVE - 10/11/2022 11:43 AM EDT [address] [address] Bobtail Driver: Ebony Parrish MD BICYCLE FITTER Cytology Report FINAL DIAGNOSIS A. PAP SMEAR [...] : 2000 (Age: 22) Sex: F Institution: [facility] Location: [facility] Date of Collection: 10/05/2022 Date of [...] Rutherford MD LAB GENERAL ORDERABLES Final Result [address] [address] from Last 3 Months or Most Recently Relevant to Health Maintenance Insurance [facility] Member Subscriber Plan / Payer (Ef fective 2022-Present) Name:Dion Morgan Relation to Subscriber:Self Name:Dion Morgan Payer ID:[id number] (NAIC) Group ID:Not on file Type:Medicaid Address: [employer] CLAIMS [address] JOAN CARO MD [facility] [employer] Member Subscriber Plan / Payer (Ef fective 2022-Present) Name:Dion Morgan Relation to Subscriber:Self Name:Dion Morgan Payer ID:[id number] (NAIC) Group ID:Not on file Type:Medicaid Address: [employer] CLAIMS [address] JOAN CARO MD [facility] Member Subscriber Plan / Payer (Ef fective 2022-Present) Name:Dion Morgan Relation to Subscriber:Self Name:Dion Morgan Payer ID:[id number] (NAIC) Group ID:Not on file Type:Medicaid Address: [employer] CLAIMS [address] JOAN CARO MD [facility] Member Subscriber Plan / Payer (Ef fective 2022-Present) Name:Dion Morgan Relation to Subscriber:Self Name:Dion Morgan Payer ID:[id number] (NAIC) Group ID:Not on file Type:Medicaid Address: [employer] CLAIMS [address] JOAN CARO MD Care Teams Tc Operator Relationship Specialty Start Date End Date Pcp, Unknown PCP - General 10/06/22 Pcp, Unknown PCP - Pediatrics 09/07/20 Malorie Crowley MD [address] [place] [address] Pediatrics 10/05/22 Additional Source Comments The information contained in this document represents components of the legal health record. It is not the complete legal health record.[facility]
--- OUTSIDE RECORDS SUMMARY | 2025-04-14 18:56 | XMS_ITS | Clinical Summary ---
Author Organization [employer] Address [address] [place] [address] 7 [place] [address] Care Team Providers Care Boring Machine Operator Production Name Role Phone Unavailable Primary Care Provider [...] Most Recently Relevant to Health Maintenance Insurance [facility] MEDICAID STAND [facility]
--- OUTSIDE RECORDS SUMMARY | 2025-04-14 18:57 | XMS_ITS | Encounter Summary ---
Author Organization [facility] Address [address] [facility] [address] [place] [address] Phone Care Team Providers Care Block Chopper Hand Name Role Phone Nadia Rutherford MD Primary Care Provider Malorie Crowley MD Primary Care Provider Morenita Snider Primary Care Provider Pcp, Unknown Primary Care Provider Unavailabl e Malorie Crowley MD Unavailable [phone] Pcp, Unknown Unavailable Unavailable Encounter Details Date Type Department Care Team (Latest Contact Info) Description 05/22/2018 Transcribe Orders [facility] Specimen Processing [address] [place] [address] Nadia Rutherford MD [address] [place] [address] Encounter for routine child health [...] EST) CHLAMYDIA TRACHOMATIS Not Detected Not Detected [facility] NEISERIA GONORRHOEAE Not Detected Not Detected [facility] SPECIMEN TYPE URINE [facility] Urine (Urine) 05/22/2018 5:1 8 PM EST 05/22/2018 5:22 PM EST Nadia Rutherford MD LAB GENERAL ORDERABLES Final Result [facility] [address] [place] [address] documented in this encounter Visit Diagnoses Diagnosis Encounter for routine child health examination without abnormal findings- Primary documented in this encounter Care Teams Block Chopper Hand Relationship Specialty Start Date End Date Nadia Rutherford MD PCP - General Pediatrics 06/05/17 09/07/20 Malorie Crowley MD [address] [place] [address] PCP - General Pediatrics 01/07/21 10/04/22 Morenita Snider PA [address] [place] [address] PCP - General Physician Practice Nurse 10/05/22 10/05/22 Pcp, Unknown PCP - General 10/06/22 Pcp, Unknown PCP - Pediatrics 09/07/20 Malorie Crowley MD [address] [place] [address] Pediatrics 10/05/22 documented as of this encounter Additional Source Comments The information contained in this document represents components of the legal health record. It is not the complete legal health record.[facility]
--- OUTSIDE RECORDS SUMMARY | 2025-04-14 18:57 | XMS_ITS | Encounter Summary ---
Author Organization [employer] Address [address] [facility] 7 [place] [address] Care Team Providers Care Cable Splicer Apprentice Name Role Phone Unavailable Primary Care Provider [...]
--- OUTSIDE RECORDS SUMMARY | 2025-04-14 18:57 | XMS_ITS | Data Portability ---
Author Organization [place] [facility] Former[facility], Allergy Address [address] [place] [address] Care Team Providers Care Grants Assistant Name Role Phone CLEM PITTMAN Primary Care [...] Go To The Location Of Their Choice, [address] 01:21:12 CBC w/ auto diff 2024 025 ALYSON [facility] (Centralized Electronic Ordering - All Locations), Patient Can Go To The Location Of Their Choice, [address] 01:21:11 Referral None recorded . Procedures allergen immunoth erapy; multiple injectio ns (PROC) 2024 025 [email or web address] Not available 10:07:39 Surgeries None recorded . Imaging CT, sinuses, w/o contrast 2024 025 [email or web address] [facility], [address] [place] [address], [phone], 5 13:05:39 CT, maxillof acial, w/o contrast 2024 025 [email or web address] [facility], [address] [place] [address], [phone], 5 16:50:31 Medication Orders epinephr ine 0.3 mg/0.3 mL injectio n, auto-inj brenda 2024 [facility][id number], [address] [place] [address], [id number], 11:17:01 monteluk ast 10 mg tablet 2024 025 [facility] #[id number], [address] [place] [address], [id number], 5 11:15:48 azelasti ne 137 mcg (0.1 %) nasal spray 2024 025 [facility] #68900, [address] [place] [address], [id number], 5 14:12:04 fluticas one propiona te 50 mcg/actu ation nasal spray,delgado spension 2024 025 [facility] #36241, [address] [place] [address], [id number], 5 14:12:06 Patient TargetsNo targets recorded. Patient Instructions Encounter Date Encounter Id Patient Instructions Last Modified By Organization Details Last Modified Time 08/20/2024 [id number] 24-year-old female with allergic rhinitis, mild intermittent [...] /uL 3.4-10 .8 normal Not Available [facility] ([facility]) [address] [place], [address], 08/23/2024 01:21:11 08/21/19 25 08/21/2024 CBC WITH DIFFE RENTI AL/PL ATELE T RBC 4.97 x10e6 /uL 3.77-5 .28 normal Not Available [facility] ([facility]) [address] [place], [address], 08/23/2024 01:21:11 08/21/19 25 08/21/2024 CBC WITH DIFFE RENTI AL/PL ATELE T hemoglobin 13.8 g/dL 11.1-1 5.9 normal Not Available [facility] ([facility]) [address] [place], [address], 08/23/2024 01:21:11 08/21/19 25 08/21/2024 CBC WITH DIFFE RENTI AL/PL ATELE T hematocrit 43.3 % 34.0-4 6.6 normal Not Available [facility] ([facility]) [address] [place], [address], 08/23/2024 01:21:11 08/21/19 25 08/21/2024 CBC WITH DIFFE RENTI AL/PL ATELE T MCV 87 fL 79-97 normal Not Available [facility] ([facility]) [address] [facility], [place], [address], 08/23/2024 01:21:11 08/21/19 25 08/21/2024 CBC WITH DIFFE RENTI AL/PL ATELE T MCH 27.8 pg 26.6-3 3.0 normal Not Available [facility] ([facility]) [address] [facility], [place], [address], 08/23/2024 01:21:11 08/21/19 25 08/21/2024 CBC WITH DIFFE RENTI AL/PL ATELE T MCHC 31.9 g/dL 31.5-3 5.7 normal Not Available [facility] ([facility]) [address] [place], [address], 08/23/2024 01:21:11 08/21/19 25 08/21/2024 CBC WITH DIFFE RENTI AL/PL ATELE T RDW 12.0 % 11.7-1 5.4 Not Available [facility] ([facility]) [address] [place], [address], 08/23/2024 01:21:11 08/21/19 25 08/21/2024 CBC WITH DIFFE RENTI AL/PL ATELE T platelets 333 x10e3 /uL 150-45 0 normal Not Available [facility] ([facility]) [address] [place], [address], 08/23/2024 01:21:11 08/21/19 25 08/21/2024 CBC WITH DIFFE RENTI AL/PL ATELE T neutrophils 67 % not estab. normal Not Available [facility] ([facility]) [address] [facility], [place], [address], 08/23/2024 01:21:11 08/21/19 25 08/21/2024 CBC WITH DIFFE RENTI AL/PL ATELE T lymphs 23 % not estab. normal Not Available [facility] ([facility]) [address] [facility], [place], [address], 08/23/2024 01:21:11 08/21/19 25 08/21/2024 CBC WITH DIFFE RENTI AL/PL ATELE T monocytes 6 % not estab. normal Not Available [facility] ([facility]) [address] [facility], [place], [address], 08/23/2024 01:21:11 08/21/19 25 08/21/2024 CBC WITH DIFFE RENTI AL/PL ATELE T eos 3 % not estab. normal Not Available [facility] ([facility]) [address] [facility], [place], [address], 08/23/2024 01:21:11 08/21/19 25 08/21/2024 CBC WITH DIFFE RENTI AL/PL ATELE T basos 1 % not estab. normal Not Available [facility] ([facility]) [address] [facility], [place], [address], 08/23/2024 01:21:11 08/21/19 25 08/21/2024 CBC WITH DIFFE RENTI AL/PL ATELE T immature cells DERMATOLOGY PHYSICIAN ASSISTANT Not Available [facility] ([facility]) [address] [facility], [place], [address], 08/23/2024 01:21:11 08/21/19 25 08/21/2024 CBC WITH DIFFE RENTI AL/PL ATELE T neutrophils (absolute) 5.9 x10e3 /uL 1.4-7. 0 normal Not Available [facility] ([facility]) [address] [place], [address], 08/23/2024 01:21:11 08/21/19 25 08/21/2024 CBC WITH DIFFE RENTI AL/PL ATELE T lymphs (absolute) 2.0 x10e3 /uL 0.7-3. 1 normal Not Available [facility] ([facility]) [address] [facility], [place], [address], 08/23/2024 01:21:11 08/21/19 25 08/21/2024 CBC WITH DIFFE RENTI AL/PL ATELE T monocytes(ab solute) 0.6 x10e3 /uL 0.1-0. 9 normal Not Available [facility] ([facility]) [address] [place], [address], 08/23/2024 01:21:11 08/21/19 25 08/21/2024 CBC WITH DIFFE RENTI AL/PL ATELE T eos (absolute) 0.2 x10e3 /uL 0.0-0. 4 normal Not Available [facility] ([facility]) [address] [place], [address], 08/23/2024 01:21:11 08/21/19 25 08/21/2024 CBC WITH DIFFE RENTI AL/PL ATELE T baso (absolute) 0.0 x10e3 /uL 0.0-0. 2 normal Not Available [facility] ([facility]) [address] [place], [address], 08/23/2024 01:21:11 08/21/19 25 08/21/2024 CBC WITH DIFFE RENTI AL/PL ATELE T immature granulocytes 0 % not estab. Not Available [facility] ([facility]) [address] [place], [address], 08/23/2024 01:21:11 08/21/19 25 08/21/2024 CBC WITH DIFFE RENTI AL/PL ATELE T immature grans (abs) 0.0 x10e3 /uL 0.0-0. 1 Not Available [facility] ([facility]) [address] [facility], [place], [address], 08/23/2024 01:21:11 08/21/19 25 08/21/2024 CBC WITH DIFFE RENTI AL/PL ATELE T NRBC DERMATOLOGY PHYSICIAN ASSISTANT Not Available [facility] ([facility]) [address] [facility], [place], [address], 08/23/2024 01:21:11 08/21/19 25 08/21/2024 CBC WITH DIFFE RENTI AL/PL ATELE T hematology comments: DERMATOLOGY PHYSICIAN ASSISTANT Not Available [facility] ([facility]) [address] [facility], [place], [address], 08/23/2024 01:21:11 08/21/19 25 08/23/2024 IMMUN OGLOB ULIN E, TOTAL immunoglobul in E, total 349 IU/mL 6-495 Not Available [facility] ([facility]) [address] [facility], [place], [address], 08/23/2024 01:21:12 10/04/[address], sinus es, w/o contr ast No observ ation record ed. [facility] [address], [address], 10/03/2024 11:17:52 10/23/19 25 10/03/2024 CT, sinus es, w/o contr ast No observ ation record ed. [facility] Of [address], [address], 10/22/2024 14:24:12 03/17/20 25 03/03/2025 US, neck, soft tissu e No observ ation record ed. ALYSON Not Available 2024 16:35:07 Result Notes None recorded. Problems Name Problem SNOMED Code Status Onset Date Resolution Date Notes Provider Name and Address Organization Details Recorded Time Hypertrophy of nasal turbinates 20365363 Active 2024 SALLY MOREIRA MD [address] [facility], [address], [place], [address], [facility] - [facility] [place] 13:48:15 Chronic sinusitis 03081892 Active 2024 SALLY MOREIRA MD [address] [facility] [address] [facility], [place], [address], [facility] - [facility] [place] 13:48:18 Allergic rhinitis 58777031 Active 2024 SALLY MOREIRA MD [address] [facility] [address] [facility], [place], [address], [facility] - [facility] [place] 13:48:20 Polyp of nasal cavity 724179750 Active 2024 SALLY MOREIRA MD [address] [facility] [address] [facility], [place], [address], 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 - [facility] [place] 14:07:39 Seasonal allergic rhinitis 228515973 Active 2024 SALLY MOREIRA MD [address] [facility] [address], [employer] [place], [address], [facility] - [facility] [place] 14:10:32 Mild intermittent asthma 142971520 Active 2024 SALLY MOREIRA MD [address] [facility], [address], [place], [address], [facility] - [facility] [place] 11:15:25 Localized enlarged lymph nodes 000900660 Active 2024 SALLY MOREIRA MD 100 [facility], [address], [employer] [place], [place], [address], [facility] - [facility] 16:21:34 Problem Notes None recorded. Medical [...] Updated DateTime 08/20/2024 167.64 cm 37.1 kg/m2 858239.25 g Taylor Bishop [place] [facility] 08/20/2024 13:22:29 Social History Question Answer Notes LastModified by Organizat ion Details LastModified Time Tobacco Smoking Status Never Smoker SALLY CAPELLAN MD [address] [place] [address], [place], [address], [facility] - [facility] 10/03/2024 11:11:58 What Type Of Facilities Project Manager Do You Use? None Information not available [...] Emphysema N Migraines N Thyroid Problems N Depression N COPD N Developmental Delay N Glaucoma N Nasal or Sinus Problems Y Anemia N Immune System Disorder N Anesthesia Complications N Heart Attack (NM) N Other Skin Condition N Diabetes N [...] ICD10 Code Diagnosis IMO Codes Diagnosis Note [id number] SALLY HINOJOSA MD [facility] [address] [address] 08/20/2024 13:13:12 08/20/2024 14:13:48 Hypertrophy of nasal turbinates 43624522 J34.3 Chronic sinusitis 949434 00 J32.9 Allergic rhinitis 074122 04 J30.9 Polyp of nasal cavity 73 8842803 J33.0 Polypoid s inus degeneration 86689244 J33.1 [id number] SALLY HINOJOSA MD [facility] [address] [place] [address] 10/03/2024 10:38:10 10/03/2024 13:05:39 Chronic sinusitis 31916018 J32.9 Hypertroph y of nasal turbinates 27421605 J34.3 Polypoid s inus degeneration 49122013 J33.1 Allergic rhinitis 195741 04 J30.9 We also discussed the role [...] an Epipen discussed. Mild inter mittent asthma 937428813 J45.20 [id number] Health Concerns Section Related Observation LastModified by Organization Detai ls LastModified Time None Recorded Concern Status LastModified by Organization Details LastModified Time None Recorded Advance Directives Directive None Recorded Payers Insurance Date Sequence Insurance Name Policy Number Policy Hernandez Covered Member ID Hernandez Member ID Guarantor Name 12/25/2024 1 [facility] [id number] Alf Cathy [id number] Zaynabsusannah Bondome 08/20/2024 1 [facility] Alf Cathy [id number] Zaynab Cathy Notes Date Note Type Note [...] had allergy testing last year at [facility]. Reports many positive reactions. They suggested [...] nonsteroidal anti-inflammatory drugsSNOT=29Nose=8 5 SALLY CAPELLAN MD [address] [place] [address], [address], [facility] 08/20/2024 14:12:01 10/03/2024 text/html ROS as noted in the HPI Patient with significant history of allergic rhinitis, reactive airway disease and nasal polyps. No history of aspirin allergy. Feels better with consistent use of fluticasone and azelastine but still has reduced sense of smell. Laboratory studies were normal. Prior skin testing showed significant pollen allergy. SALLY CAPELLAN MD [address] [place] [address],[address], [address], [facility] 10/03/2024 11:19:25 OBGyn Episode No OBEpisode recorded.
--- OUTSIDE RECORDS SUMMARY | 2025-04-14 18:57 | XMS_ITS | Encounter Summary ---
Author Organization [employer] Address [address] [facility] 7 [place] [address] Care Team Providers Care Residential Care Officer Name Role Phone Unavailable Primary Care Provider [...]
--- OUTSIDE RECORDS SUMMARY | 2025-04-14 18:57 | XMS_ITS | Encounter Summary ---
Author Organization [employer] Address [address] [facility] [address] 7 [place] [address] Care Team Providers Care Crop Duster Name Role Phone Unavailable Primary Care Provider [...]
== END 2025-04-14 15:54 | disposition home or self-care (01) ==
PROVIDERS: PCP Physician Assistant; Referring Provider Physician Assistant; Visit Provider Surgery
DX: R59.0 Localized enlarged lymph nodes (principal); K80.20 Calculus of gallbladder without cholecystitis without obstruction
CPT/HCPCS: 99204

== ENCOUNTER 2025-05-19 08:09 | Outpatient (REF) | payer OTHER, SELFPAY ==
--- NOTE | ~2025-05-19 | US_ITS ---
EXAMINATION: US GUIDED LYMPH NODE BIOPSY HISTORY: R59.0 - Localized enlarged lymph nodes COMPARISON: Previous head and neck soft tissue ultrasound February 2025 TECHNIQUE: The left neck was prepped and draped in the usual sterile fashion. The skin and soft tissues were anesthetized with 1% lidocaine plain. Using ultrasound guidance, access largest lymph node, a left upper level 3 lymph node was obtained. 5 25-gauge FNA specimens were obtained. Specimens were sent for cytology, flow cytometry and microbiology/Gram stain and culture. FINDINGS: There is an enlarged left upper level 3 lymph node that was targeted for fine-needle aspiration.. This is not seen on images from February 2025 exam. This measures 2.3 x 0.8 x 1.3 cm. This demonstrates cortical thickening and slitlike fatty hilum. There is a normal-appearing midline submental lymph node that measures 0.5 x 0.5 x 0.6 cm and appears unchanged. There is a left submental lymph node that measures 1.3 x 0.9 x 1.4 cm with preserved fatty hilum and normal hilar flow. Submental lymph nodes are similar to February 2025 exam. US/US biopsy lymph node IMPRESSION: Ultrasound-guided fine needle aspiration of enlarged left level 3 cervical lymph node. Electronically signed by: Nadia Colon MD 05/19/2025 02:24 PM [facility]
[2025-05-19] MEDS: Lidocaine HCl 1 % MPF 5 ML VIAL SUBCUT (09:17)
--- OUTSIDE RECORDS SUMMARY | 2025-05-19 09:38 | XMS_ITS | Encounter Summary ---
Author Organization [facility] Address [address] [place] [address] Phone Care Team Providers Care Mitochondrial Disorders Counselor Name Role Phone Nadia Rutherford MD Primary Care Provider Malorie Crowley MD Primary Care Provider Morenita Snider Primary Care Provider Pcp, Unknown Primary Care Provider Unavailabl e Malorie Crowley MD Unavailable [phone] Pcp, Unknown Unavailable Unavailable Encounter Details Date Type Department Care Team (Latest Contact Info) Description 05/15/2018 Transcribe Orders [address] [address] Nadia Rutherford MD [address] [place] [phone] Nonspecific abnormal finding (Primary Dx) Social [...] FREE T4 1.1 0.9 - 1.7 ng/dL [facility] Blood 05/15/2018 9:26 AM EST 05/15/2018 9:30 AM EST us Nadia Rutherford MD LAB BLOOD BKR ORDERABLE S Final Result Performing Organization Address City/[facility]/ZIP Co de Phone Number [address] [address] * TSH (05/15/2018 9:26 AM EST) TSH 2.26 0.27 - 4.20 uIU/mL [facility] Blood 05/15/2018 9:26 AM EST 05/15/2018 9:30 AM EST us Nadia Rutherford MD LAB BLOOD BKR ORDERABLE S Final Result Performing Organization Address [facility] Co de Phone Number [address] [address] documented in this encounter Visit Diagnoses Diagnosis Nonspecific abnormal finding- Primary Other nonspecific abnormal finding documented in this encounter Care Teams Mitochondrial Disorders Counselor Relationship Specialty Start Date End Date Nadia Rutherford MD PCP - General Pediatrics 06/05/17 09/07/20 Malorie Crowley MD [address] [place] [address] PCP - General Pediatrics 01/07/21 10/04/22 Morenita Snider PA [address] [place] [address] PCP - General Physician Semi Conductor Assembler 10/05/22 10/05/22 Pcp, Unknown PCP - General 10/06/22 Pcp, Unknown PCP - Pediatrics 09/07/20 Malorie Crowley MD [address] [place] [address] Pediatrics 10/05/22 documented as of this encounter Additional Source Comments The information contained in this document represents components of the legal health record. It is not the complete legal health record.[facility]
--- OUTSIDE RECORDS SUMMARY | 2025-05-19 09:38 | XMS_ITS | Encounter Summary ---
Author Organization [facility] Address [address] [facility] [address] [place] [address] Phone Care Team Providers Care Oiler Helper Name Role Phone Nadia Rutherford MD Primary Care Provider Malorie Crowley MD Primary Care Provider Morenita Snider Primary Care Provider Pcp, Unknown Primary Care Provider Unavailabl e Malorie Crowley MD Unavailable [phone] Pcp, Unknown Unavailable Unavailable Encounter Details Date Type Department Care Team (Late st Contact Info) Description 06/05/2017 Transcribe Orders [facility] Specimen Processing [address] [place] [address] Nadia Rutherford MD [address] [place] [address] Cough (Primary Dx) Social History [...] PM EST) Influenza A Ag Negative Negative [facility] Influenza B Ag Positive(A) Negative [facility] Other (Nasal) 06/05/2017 5:4 0 PM EST 06/05/2017 5:46 PM EST Nadia Rutherford MD MICROBIOLOGY - GENERAL ORDERABLES Final Result [facility] [address] [place] [address] documented in this encounter Visit Diagnoses Diagnosis Cough- Primary documented in this encounter Care Teams Oiler Helper Relationship Specialty Start Date End Date Nadia Rutherford MD PCP - General Pediatrics 06/05/17 09/07/20 Malorie Crowley MD [address] [place] [address] PCP - General Pediatrics 01/07/21 10/04/22 Morenita Snider PA [address] [place] [address] PCP - General Physician Rocket Scientist 10/05/22 10/05/22 Pcp, Unknown PCP - General 10/06/22 Pcp, Unknown PCP - Pediatrics 09/07/20 Malorie Crowley MD [address] [place] [address] Pediatrics 10/05/22 documented as of this encounter Additional Source Comments The information contained in this document represents components of the legal health record. It is not the complete legal health record.[facility]
--- OUTSIDE RECORDS SUMMARY | 2025-05-19 09:38 | XMS_ITS | Encounter Summary ---
Author Organization [employer] Address [address] [facility] [address] 7 [place] [address] Care Team Providers Care Manager Energy Name Role Phone Unavailable Primary Care Provider [...]
--- OUTSIDE RECORDS SUMMARY | 2025-05-19 09:38 | XMS_ITS | Clinical Summary ---
Author Organization [employer] Address [address] [place] [address] 7 [place] [address] Care Team Providers Care In File Operator Name Role Phone Unavailable Primary Care [...] Most Recently Relevant to Health Maintenance Insurance [facility] MEDICAID STAND ADULT [facility]
--- OUTSIDE RECORDS SUMMARY | 2025-05-19 09:38 | XMS_ITS | Encounter Summary ---
Author Organization [facility] Address [address] [facility] [address] [place] [address] Phone Care Team Providers Care Radius Corner Machine Operator Name Role Phone Nadia Rutherford MD Primary Care Provider Malorie Crowley MD Primary Care Provider Morenita Sniedr Primary Care Provider Pcp, Unknown Primary Care Provider Unavailabl e Malorie Crowley MD Unavailable [phone] Pcp, Unknown Unavailable Unavailable Encounter Details Date Type Department Care Team (Latest Contact Info) Description 05/22/2018 Transcribe Orders [facility] Specimen Processing [address] [place] [address] Nadia Rutherford MD [address] [place] [address] Encounter for routine child health [...] EST) CHLAMYDIA TRACHOMATIS Not Detected Not Detected [facility] NEISERIA GONORRHOEAE Not Detected Not Detected [facility] SPECIMEN TYPE URINE [facility] Urine (Urine) 05/22/2018 5:1 8 PM EST 05/22/2018 5:22 PM EST Nadia Rutherford MD LAB GENERAL ORDERABLES Final Result [facility] [address] [place] [address] documented in this encounter Visit Diagnoses Diagnosis Encounter for routine child health examination without abnormal findings- Primary documented in this encounter Care Teams Radius Corner Machine Operator Relationship Specialty Start Date End Date Nadia Rutherford MD PCP - General Pediatrics 06/05/17 09/07/20 Malorie Crowley MD [address] [place] [address] PCP - General Pediatrics 01/07/21 10/04/22 Morenita Snider PA [address] [place] [address] PCP - General Physician Chief Medical Director 10/05/22 10/05/22 Pcp, Unknown PCP - General 10/06/22 Pcp, Unknown PCP - Pediatrics 09/07/20 Malorie Crowley MD [address] [place] [address] Pediatrics 10/05/22 documented as of this encounter Additional Source Comments The information contained in this document represents components of the legal health record. It is not the complete legal health record.[facility]
--- OUTSIDE RECORDS SUMMARY | 2025-05-19 09:38 | XMS_ITS | Encounter Summary ---
Author Organization [employer] Address [address] [facility] 7 [place] [address] Care Team Providers Care Curing Machine Operator Name Role Phone Unavailable Primary Care [...]
--- OUTSIDE RECORDS SUMMARY | 2025-05-19 09:38 | XMS_ITS | Clinical Summary ---
Author Organization [facility] Address [address] [place] [address] Phone Care Team Providers Care Manifold Builder Name Role Phone Pcp, Unknown Primary Care Provider Malorie Ash MD Unavailable [phone] Pcp, Unknown Unavailable Unavailable Allergies No [...] SEE NARRATIVE - 10/11/2022 11:43 AM EDT [address] [address] Integrity Analyst: Ebony Parrish MD FUEL CELL DESIGNER Cytology Report FINAL DIAGNOSIS A. PAP SMEAR [...] : 2000 (Age: 22) Sex: F Institution: [facility] Location: [facility] Date of Collection: 10/05/2022 Date of Reported: 10/11/2022 11:43 Results to: JEANNE Albarran us Unknown Unknown CYTOLOGY ORDERABLES Final Res ult SEE NARRATIVE * Chlamydia Trachomatis and Neisseria Gonorrhoeae Nucleic Acid Detection (12/11/2019 11:46 AM EDT) CHLAMYDIA TRACHOMATIS Not Detected Not Detected [facility] NEISERIA GONORRHOEAE Not Detected Not Detected [facility] SPECIMEN TYPE URINE [facility] Urine (Urine) 12/11/2019 11: 46 AM EDT 12/11/2019 11:47 AM EDT us Nadia Rutherford MD LAB GENERAL ORDERABLES Final Result [address] [address] from Last 3 Months or Most Recently Relevant to Health Maintenance Insurance [facility] Member Subscriber Plan / Payer (Ef fective 2022-Present) Name:Dion Morgan Relation to Subscriber:Self Name:Dion Morgan Payer ID:[id number] (NAIC) Group ID:Not on file Type:Medicaid Address: [employer] CLAIMS [address] JOAN CARO MD [facility] Member Subscriber Plan / Payer (Ef fective 2022-Present) Name:Dion Morgan Relation to Subscriber:Self Name:Dion Morgan Payer ID:[id number] (NAIC) Group ID:Not on file Type:Medicaid Address: [employer] CLAIMS [address] JOAN CARO MD [facility] Member Subscriber Plan / Payer (Ef fective 2022-Present) Name:Dion Morgan Relation to Subscriber:Self Name:Dion Morgan Payer ID:[id number] (NAIC) Group ID:Not on file Type:Medicaid Address: [employer] CLAIMS [address] JOAN CARO MD [facility] Member Subscriber Plan / Payer (Ef fective 2022-Present) Name:Dion Morgan Relation to Subscriber:Self Name:Dion Morgan Payer ID:[id number] (NAIC) Group ID:Not on file Type:Medicaid Address: [employer] CLAIMS [address] JOAN CARO MD Care Teams Manifold Builder Relationship Specialty Start Date End Date Pcp, Unknown PCP - General 10/06/22 Pcp, Unknown PCP - Pediatrics 09/07/20 Malorie Crowley MD [address] [place] [address] Pediatrics 10/05/22 Additional Source Comments The information contained in this document represents components of the legal health record. It is not the complete legal health record.[facility]
--- OUTSIDE RECORDS SUMMARY | 2025-05-19 09:38 | XMS_ITS | Encounter Summary ---
Author Organization [id number] Address [address] [facility] 7 [place] [address] Care Team Providers Care Dental Appliance Mechanic Name Role Phone Unavailable Primary Care Provider [...]
--- OUTSIDE RECORDS SUMMARY | 2025-05-19 09:38 | XMS_ITS | Encounter Summary ---
Author Organization [facility] Address [address] [place] [phone] Phone Care Team Providers Care Head Knitting Machine Fixer Name Role Phone Nadia Rutherford MD Primary Care Provider Malorie Crowley MD Primary Care Provider [phone] Morenita Snider Primary Care Provider Pcp, Unknown Primary Care Provider Unavailabl e Malorie Crowley MD Unavailable [phone] Pcp, Unknown Unavailable Unavailable Encounter Details Date Type Department Care Team (Latest Contact Info) Description 12/11/2019 Transcribe Orders [facility] Specimen Processing [address] [place] [address] Nadia Rutherford MD [address] [place] [address] OCP (oral contraceptive pills) initiation [...] EDT) CHLAMYDIA TRACHOMATIS Not Detected Not Detected [facility] NEISERIA GONORRHOEAE Not Detected Not Detected [facility] SPECIMEN TYPE URINE [facility] Urine (Urine) 12/11/2019 11: 46 AM EDT 12/11/2019 11:47 AM EDT Nadia Rutherford MD LAB GENERAL ORDERABLES Final Result [facility] [address] [place] [address] documented in this encounter Visit Diagnoses Diagnosis OCP (oral contraceptive pills) initiation- Primary General counseling for prescription of oral contraceptives documented in this encounter Care Teams Head Knitting Machine Fixer Relationship Specialty Start Date End Date Nadia Rutherford MD PCP - General Pediatrics 06/05/17 09/07/20 Malorie Crowley MD [address] [place] [id number] PCP - General Pediatrics 01/07/21 10/04/22 Morenita Snider PA [address] [place] [id number] PCP - General Physician Senior Wind Turbine Technician 10/05/22 10/05/22 Pcp, Unknown PCP - General 10/06/22 Pcp, Unknown PCP - Pediatrics 09/07/20 Malorie Crowley MD [address] [place] [id number] Pediatrics 10/05/22 documented as of this encounter Additional Source Comments The information contained in this document represents components of the legal health record. It is not the complete legal health record.[facility]
== END 2025-05-19 08:10 ==
LOC: HO.US 08:09
PROVIDERS: Pathology Anatomic Pathology & Clinical Pathology; PCP Physician Assistant; Visit Provider Surgery
DX: R59.0 Localized enlarged lymph nodes (principal); Z80.7 Family history of other malignant neoplasms of lymphoid, hematopoietic and related tissues
CPT/HCPCS: 38505; 76942; 87070; 87073; 87205; 88184; 88185; 88305; J2003

== ENCOUNTER → 2025-05-19 08:11 | Outpatient (BNV) | payer OTHER, SELFPAY | PROVIDERS: PCP Physician Assistant; Visit Provider Radiology Diagnostic Radiology | DX: R59.0 Localized enlarged lymph nodes (principal) | CPT/HCPCS: 38505; 76942 ==